=== PATIENT | female | born 1990 | race Caucasian/White ===

== ENCOUNTER 2017-07-27 11:17 | Outpatient (CLI) | payer MEDICARE, MEDICAID ==
[~2017-07-27] VITALS: Ht 162.6 cm; Wt 115.7 kg
[~2017-07-27 11:17] MED LIST: ACHD5005 PO; ALBU17AE23 IH; AMIT10TA6 PO; AMOX500C2 PO; ASEN5TAB7 SL; ATRV10T PO; BUDE6HFA IH; BUPR150T7 PO; BUTA1CAP37 PO; CITA10TA PO; CLCX200C PO; CLON0.1T PO; CLON0.5T3 PO; CLON2TAB3 PO; CPH250CIP PO; CPR500T PO; CYCL10TA9 PO; DIAZ10TA3 PO; DIAZ5TAB3 PO; ENXP30I.3 SC; ERGO2000 PO; ESCI20TA2 PO; ESCI20TA38 PO; ESTR1TAB24 PO; EXEN5PEN3 SQ; FLAV100T PO; FLT11013 IH; FLUO20CA42 PO; GABA600T2 PO; GLYB2.5T4 PO; HYDR-2856; HYDR-34 PO; HYDR-700 PO; HYDR1TAB PO; INDO25CA PO; IPR14IN INH; LAMO100T69 PO; LISI1TAB PO; LISI5TAB PO; LOVA20TA2 PO; MEDR10TA9 PO; MELO-195 PO; METO-354 PO; METO10TA3 PO; MNTL10T PO; MTF500T PO; MTH/1CAP PO; NAPR-243 PO; NITR100C3 PO; OMEP20CA12 PO; ONDA8TAB6 PO; OXYB10TA PO; OXYC-306 PO; OXYC-465 PO; OXYC20TA54 PO; PARO10TA21 PO; PENT100C5 PO; PHEN-483 PO; PHEN200T27 PO; PREG75CA PO; PROC5TAB PO; QTP25T PO; RNT150T PO; ROPI1TAB2 PO; RT-ALBUINH IH; RT-COMBINH IH; SOLI10TA4 PO; SPIR100T37 PO; SUMA100T3 PO; TOPI100T PO; TRZ100T PO; URELLE PO; WARF7.5T PO; WRF10T PO; XENICAL PO; ZLP5T PO; ZPR40C PO; ZPR80C PO; [UNRECOGNIZED DRUG - OTHER] TP
[2017-07-27] MEDS ORDERED: D5 LR IV SOLUTION 1,000 ML IV SCH (11:45)
[2017-07-27 12:51] LABS: BASOPHILS % (AUTO) 0 % (0-10); EOSINOPHILS # (AUTO) 0.1 10^3/uL (0.0-0.3); EOSINOPHILS % (AUTO) 1 % (0-10); HEMATOCRIT 37 % (35-52); HEMOGLOBIN 12.6 G/DL (11.5-16.0); LYMPHOCYTES # (AUTO) 1.7 X 10^3 (1.0-4.0); LYMPHOCYTES % (AUTO) 19 % (12-44); MEAN CORPUSCULAR HEMOGLOBIN 30 PG (25-34); MEAN CORPUSCULAR HGB CONC 34 G/DL (32-36); MEAN CORPUSCULAR VOLUME 86 FL (80-99); MONOCYTES # (AUTO) 0.5 X 10^3 (0.0-1.0); MONOCYTES % (AUTO) 5 % (0-12); NEUTROPHILS # (AUTO) 6.4 X 10^3 (1.8-7.8); NEUTROPHILS % (AUTO) 74 % (42-75); PLATELET COUNT 167 10^3/uL (130-400); RED BLOOD COUNT 4.25 10^6/uL (4.35-5.85); RED CELL DISTRIBUTION WIDTH 13.7 % (10.0-14.5); WHITE BLOOD COUNT 8.6 10^3/uL (4.3-11.0)
--- NOTE | 2017-07-28 08:55 | Physician Query-Final Dx ---
SANDY DREW 07/28/17 0855: Clinic Account Progress/Dx Physician Query: Please give diagnosis Date of Service Jul 27, 2017 at 11:17 DARRYL YE MD 07/28/17 1638: Clinic Account Progress/Dx DIAGNOSIS: Diagnosis False labor RAJENDRASANDY Jul 28, 2017 08:55 DARRYL YE MD Jul 28, 2017 16:38
== END 2017-07-27 13:46 | disposition home or self-care (01) ==
LOC: WSo 11:17 → LDRP 11:17 → WSo 13:46
PROVIDERS: ATTEND Obstetrics & Gynecology
DX: O47.02 False labor before 37 completed weeks of gestation, second trimester (principal); Z3A.23 23 weeks gestation of pregnancy
CPT/HCPCS: 36415; 82570; 84156; 85025; 96360; 99214

== ENCOUNTER 2018-05-15 15:32 | Outpatient (CLI) | payer MEDICARE, MEDICAID ==
[~2018-05-15] VITALS: Ht 162.6 cm; Wt 114.3 kg
[~2018-05-15 15:32] MED LIST changes: +AMLO5TAB4 PO; +BIRTH CONTROL PILL PO; +CLON0.5T13 PO; -CLON0.5T3 PO; +DIAZ5TAB PO; +LITH300C PO; +NITR-65 PO; +PHEN-640 PO; +SITA100T12 PO
[2018-05-16] MEDS ORDERED: NORE0.3520 PO (14:02)
[2018-05-16] MEDS ORDERED: IBUP-1773 PO (14:08)
== END 2018-05-15 16:30 | disposition home or self-care (01) ==
LOC: PREOP 15:32
PROVIDERS: ATTEND Orthopaedic Surgery
DX: Z01.818 Encounter for other preprocedural examination (principal)

== ENCOUNTER 2018-05-17 17:29 | Emergency (ER) | payer MEDICARE, MEDICAID ==
[~2018-05-17] VITALS: Ht 165.1 cm; Wt 115.7 kg
[~2018-05-17 17:29] MED LIST changes: +IBUP-1773 PO; +NORE0.3520 PO
--- OUTSIDE RECORDS SUMMARY | 2018-05-17 17:34 | XMS REPORT | Clinical Summary ---
Author Author [facility] Organization [facility] Address Unknown Phone Unavailable Care Team Providers Care Educational Coordinator Name Role Phone PP Unavailable Allergies Comments Active Allergy Reactions Severity Noted Date Thrush Fluticasone-Salmeterol Other (See Medium 11/17/2011 Comments) Med made pt's neuropathy worse. Topiramate Other (See Medium 11/12/2012 Comments) Tramadol Shortness Of High 09/12/2011 Breath Medications End Date Status Medication Sig Dispensed Refills Start Date Active oxyCODONE (ROXICODONE) 5 Take 10 mg by 0 MG immediate release mouth every 4 tablet (four) hours as needed for Severe Pain. Active phentermine 37.5 MG Take 37.5 mg 0 capsule by mouth every morning. Active oxyCODONE (OXYCONTIN) 10 Take 20 mg by 0 MG 12 hr mouth every tabletIndications: 12 (twelve) Chronic Pain hours. Indications: Chronic Pain Active lurasidone (LATUDA) 20 MG Take 1 tablet 30 tablet 1 tabletIndications: (20 mg total) 7 Depressive Phase Bipolar by mouth Mood Disorder daily with dinner. Indications: Depressive Phase of Manic-Depress ion Active traZODone (DESYREL) 50 MG Take 1 tablet 20 tablet 0 tabletIndications: (50 mg total) 7 Insomnia by mouth at bedtime. 1/2 - 1 tab bedtime as needed Indications: Trouble Sleeping Active hydrOXYzine (ATARAX) 50 Take 1 tablet 90 tablet 0 MG tabletIndications: CHRIS (50 mg total) 7 (generalized anxiety by mouth 3 disorder) (three) times daily. Active Problems Problem Noted Date Bipolar I disorder with depression 03/24/2016 Suicidal behavior 11/27/2012 Marital disruption involving divorce 11/27/2012 Anxiety 11/13/2012 Suicidal behavior 11/13/2012 Unspecified episodic mood disorder 06/30/2012 Suicidal ideation 04/28/2012 Chronic back pain 09/13/2011 Diabetes mellitus 09/13/2011 Resolved Problems Problem Noted Date Resolved Date CHRIS (generalized anxiety disorder) 12/19/2016 12/21/2016 PTSD (post-traumatic stress disorder) 12/19/2016 12/21/2016 Bipolar 1 disorder, depressed, severe 11/13/2012 12/21/2016 Suicidal intent 06/30/2012 07/04/2012 Suicidal ideation 10/06/2011 04/28/2012 Suicidal ideation 12/08/2010 12/10/2010 Major depression, recurrent 12/08/2010 05/04/2012 Immunizations Name Dates Previously Given Next Due Pneumococcal 08/22/2012 Polysaccharide (23-valent) Family History Medical History Relation Name Comments Mental illness Maternal Aunt Danielle Mental illness Mother Padmini Relation Name Status Comments Maternal Aunt Danielle Alive Mother Padmini Alive Social History Date Tobacco Use Types Packs/Day Years Used Never Smoker Smokeless Tobacco: Never Used Alcohol Use Drinks/Week oz/Week Comments No Sex Assigned at Date Recorded Not on file Industry Job Start Date Occupation Not on file Not on file Not on file Travel End Travel History Travel Start No recent travel history available. Last Filed Vital Signs Time Taken Vital Sign Reading 12/21/2016 9:09 AM CDT Blood Pressure 132/87 12/21/2016 9:09 AM CDT Pulse 106 12/21/2016 9:08 AM CDT Temperature 36.6 C (97.9 F) 12/21/2016 9:08 AM CDT Respiratory Rate 18 12/21/2016 9:08 AM CDT Oxygen Saturation 97% - Inhaled Oxygen - Concentration 12/18/2016 3:50 PM CDT Weight 117 kg (258 lb) 12/18/2016 3:50 PM CDT Height 162.6 cm (5' 4") 12/18/2016 3:50 PM CDT Body Mass Index 44.29 Plan of Treatment Health Maintenance Due Date Last Done Comments Annual Wellness Visit 1988 Diabetic Foot Exam 1998 Ophthalmology Exam 1998 Varicella Vaccines (1 of 2001 2 - 2-dose adolescent series) DTaP,Tdap,and Td Vaccines 10/29/2007 (1 - Tdap) CERVICAL CANCER SCREENING 2009 Diabetic A1C Due 09/21/2016 03/24/2016, 04/28/2012, 12/08/2010 Influenza Vaccine (#1) 2017 Results Not on filefrom Last 3 Months Insurance Type Payer Benefit Subscriber ID Effective Phone Address Plan / Dates Group Medicare MEDICARE MEDICARE xxxxxxxxxx 2012-P [phone] [address] [place] [address] [employer] K[employer]ARE 19 xxxxxxxxxxx 2008 [address] [address] [place] [address] ([place]) [place] [address] Advance Directives For more information, please contact: [address] [address] Date Inactivated Comments Code Status Date Activated Full Code 12/21/2016 8:28 AM 12/21/2016 8:28 AM Full Code 12/18/2016 4:52 PM 03/26/2016 5:07 PM Full Code 03/23/2016 11:18 PM 11/28/2012 3:00 PM Full Code 11/26/2012 9:02 PM 11/16/2012 1:25 PM Full Code 11/13/2012 2:08 AM
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
--- OUTSIDE RECORDS SUMMARY | 2018-05-17 17:37 | XMS REPORT | Continuity of Care Document ---
Author Author [facility] [place] Address Unknown Phone Unavailable Allergies Active Description Code Type Severity Reaction Onset Reported/Identified Relationship to Patient Clinical Status Yes Pyridium Drug Allergy N/A N/A 02/24/2011 Yes TAPE OA N/A N/A 02/24/2011 Yes traMADOL Drug Allergy N/A N/A 02/24/2011 Yes Pyridium Drug Allergy 02/24/2011 Yes TAPE OA 02/24/2011 Yes traMADOL Drug Allergy 02/24/2011 Yes Advair Diskus Drug Allergy N/ A N/A 11/01/2011 Yes Advair Diskus Drug Allergy 11/01/2011 Yes Lortab 7.5-500 mg tablet Drug Allergy N/A N/A 02/13/2012 Yes oxycodone-acetaminophen 10-325 mg tablet Drug Allergy N/A N/A 02/13/2012 Yes Lortab 7.5-500 mg tablet Drug Allergy 02/13/2012 Yes oxycodone-acetaminophen 10-325 mg tablet Drug Allergy 02/13/2012 Yes Topamax 200 mg tablet Drug Allergy N/A N/A 09/11/2012 Yes diazepam 10 mg tablet Drug Allergy N/A N/A 12/12/2012 Medications There is no data. Problems Date Dx Coded Attending Type Code Diagnosis Diagnosed By 02/24/2011 250.00 DIABETES MELLITUS TYPE 2 02/24/2011 278.00 OBESITY 02/24/2011 338.29 CHRONIC PAIN 02/24/2011 625.9 Female Pelvic Pain 02/24/2011 788.1 pain during urination (dysuria) 02/24/2011 V12.51 Personal History of DVT 02/24/2011 250.00 DIABETES MELLITUS TYPE 2 02/24/2011 278.00 OBESITY 02/24/2011 338.29 CHRONIC PAIN 02/24/2011 625.9 Female Pelvic Pain 02/24/2011 788.1 Pain During Urination (dysuria) 02/24/2011 V12.51 Personal History of DVT 02/24/2011 ARCHULETA DO, VANNA K 250.00 DIABETES MELLITUS TYPE 2 02/24/2011 ARCHULETA DO, VANNA K 278.00 OBESITY 02/24/2011 ARCHULETA DO, VANNA K 338.29 CHRONIC PAIN 02/24/2011 ARCHULETA DO, VANNA K 625.9 Female Pelvic Pain 02/24/2011 ARCHULETA DO, VANNA K 788.1 Pain During Urination (dysuria) 02/24/2011 ARCHULETA DO, VANNA K V12.51 Personal History of DVT 02/24/2011 ARCHULETA DO, VANNA K 250.00 DIABETES MELLITUS TYPE 2 02/24/2011 ARCHULETA DO, VANNA K 278.00 OBESITY 02/24/2011 ARCHULETA DO, VANNA K 338.29 CHRONIC PAIN 02/24/2011 ARCHULETA DO, VANNA K 625.9 Female Pelvic Pain 02/24/2011 ARCHULETA DO, VANNA K 788.1 Pain During Urination (dysuria) 02/24/2011 ARCHULETA DO, VANNA K V12.51 Personal History of DVT 02/24/2011 250.00 DIABETES MELLITUS TYPE 2 02/24/2011 278.00 OBESITY 02/24/2011 338.29 CHRONIC PAIN 02/24/2011 625.9 Female Pelvic Pain 02/24/2011 788.1 Pain During Urination (dysuria) 02/24/2011 V12.51 Personal History of DVT 02/24/2011 ARCHULETA DO, VANNA K 250.00 DIABETES MELLITUS TYPE 2 02/24/2011 ARCHULETA DO, VANNA K 278.00 OBESITY 02/24/2011 ARCHULETA DO, VANNA K 338.29 CHRONIC PAIN 02/24/2011 ARCHULETA DO, VANNA K 625.9 Female Pelvic Pain 02/24/2011 ARCHULETA DO, VANNA K 788.1 Pain During Urination (dysuria) 02/24/2011 ARCHULETA DO, VANNA K V12.51 Personal History of DVT 02/24/2011 ARCHULETA DO, VANNA K 250.00 DIABETES MELLITUS TYPE 2 02/24/2011 ARCHULETA DO, VANNA K 278.00 OBESITY 02/24/2011 ARCHULETA DO, VANNA K 338.29 CHRONIC PAIN 02/24/2011 ARCHULETA DO, VANNA K 625.9 Female Pelvic Pain 02/24/2011 ARCHULETA DO, VANNA K 788.1 Pain During Urination (dysuria) 02/24/2011 ARCHULETA DO, VANNA K V12.51 Personal History of DVT 02/24/2011 VANNA ARCHULETA DO K 250.00 DIABETES MELLITUS TYPE 2 02/24/2011 KATHE WHITE VANNA K 278.00 OBESITY 02/24/2011 KATHE WHITE VANNA K 338.29 CHRONIC PAIN 02/24/2011 VANNA ARCHULETA DO K 625.9 Female Pelvic Pain 02/24/2011 VANNA ARCHULETA DO K 788.1 Pain During Urination (dysuria) 02/24/2011 VANNA ARCHULETA DO V12.51 Personal History of DVT 02/24/2011 250.00 DIABETES MELLITUS TYPE 2 02/24/2011 278.00 OBESITY 02/24/2011 338.29 CHRONIC PAIN 02/24/2011 625.9 Female Pelvic Pain 02/24/2011 788.1 Pain During Urination (dysuria) 02/24/2011 V12.51 Personal History of DVT 02/24/2011 250.00 DIABETES MELLITUS TYPE 2 02/24/2011 278.00 OBESITY 02/24/2011 338.29 CHRONIC PAIN 02/24/2011 625.9 Female Pelvic Pain 02/24/2011 788.1 Pain During Urination (dysuria) 02/24/2011 V12.51 Personal History of DVT 02/24/2011 250.00 DIABETES MELLITUS TYPE 2 02/24/2011 278.00 OBESITY 02/24/2011 338.29 CHRONIC PAIN 02/24/2011 625.9 Female Pelvic Pain 02/24/2011 788.1 Pain During Urination (dysuria) 02/24/2011 V12.51 Personal History of DVT 02/24/2011 250.00 DIABETES MELLITUS TYPE 2 02/24/2011 278.00 OBESITY 02/24/2011 338.29 CHRONIC PAIN 02/24/2011 625.9 Female Pelvic Pain 02/24/2011 788.1 Pain During Urination (dysuria) 02/24/2011 V12.51 Personal History of DVT 02/24/2011 250.00 DIABETES MELLITUS TYPE 2 02/24/2011 278.00 OBESITY 02/24/2011 338.29 CHRONIC PAIN 02/24/2011 625.9 Female Pelvic Pain 02/24/2011 788.1 Pain During Urination (dysuria) 02/24/2011 V12.51 Personal History of DVT 02/24/2011 250.00 DIABETES MELLITUS TYPE 2 02/24/2011 278.00 OBESITY 02/24/2011 338.29 CHRONIC PAIN 02/24/2011 625.9 Female Pelvic Pain 02/24/2011 788.1 Pain During Urination (dysuria) 02/24/2011 V12.51 Personal History of DVT 02/24/2011 250.00 DIABETES MELLITUS TYPE 2 02/24/2011 278.00 OBESITY 02/24/2011 338.29 CHRONIC PAIN 02/24/2011 625.9 Female Pelvic Pain 02/24/2011 788.1 Pain During Urination (dysuria) 02/24/2011 V12.51 Personal History of DVT 02/24/2011 ЕКАТЕРИНА ZAVALA MD 250.00 DIABETES MELLITUS TYPE 2 02/24/2011 ЕКАТЕРИНА ZAVALA MD 278.00 OBESITY 02/24/2011 ЕКАТЕРИНА ZAVALA MD 338.29 CHRONIC PAIN 02/24/2011 ЕКАТЕРИНА ZAVALA MD 625.9 Female Pelvic Pain 02/24/2011 ЕКАТЕРИНА ZAVALA MD 788.1 Pain During Urination (dysuria) 02/24/2011 ЕКАТЕРИНА ZAVALA MD V12.51 Personal History of DVT 02/24/2011 ЕКАТЕРИНА ZAVALA MD 250.00 DIABETES MELLITUS TYPE 2 02/24/2011 ЕКАТЕРИНА ZAVALA MD 278.00 OBESITY 02/24/2011 ЕКАТЕРИНА ZAVALA MD 338.29 CHRONIC PAIN 02/24/2011 ЕКАТЕРИНА ZAVALA MD 625.9 Female Pelvic Pain 02/24/2011 ЕКАТЕРИНА ZAVALA MD 788.1 Pain During Urination (dysuria) 02/24/2011 ЕКАТЕРИНА ZAVALA MD V12.51 Personal History of DVT 02/24/2011 ARCHULETA DO, VANNA K 250.00 DIABETES MELLITUS TYPE 2 02/24/2011 ARCHULETA DO, VANNA K 278.00 OBESITY 02/24/2011 ARCHULETA DO, VANNA K 338.29 CHRONIC PAIN 02/24/2011 ARCHULETA DO, VANNA K 625.9 Female Pelvic Pain 02/24/2011 ARCHULETA DO, VANNA K 788.1 Pain During Urination (dysuria) 02/24/2011 ARCHULETA DO, VANNA K V12.51 Personal History of DVT 02/24/2011 ARCHULETA DO, VANNA K 250.00 DIABETES MELLITUS TYPE 2 02/24/2011 ARCHULETA DO, VANNA K 278.00 OBESITY 02/24/2011 ARCHULETA DO, VANNA K 338.29 CHRONIC PAIN 02/24/2011 VANNA ARCHULETA DO K 625.9 Female Pelvic Pain 02/24/2011 VANNA ARCHULETA DO K 788.1 pain during urination (dysuria) 02/24/2011 VANNA ARCHULETA DO V12.51 Personal History of DVT 02/27/2011 790.6 Abnormal Lft ( liver Function Test) 02/27/2011 790.6 Abnormal Lft ( liver Function Test) 02/27/2011 VANNA ARCHULETA DO K 790.6 Abnormal Lft (liver Function Test) 02/27/2011 VANNA ARCHULETA DO 790.6 Abnormal Lft (liver Function Test) 02/27/2011 790.6 Abnormal Lft ( liver Function Test) 02/27/2011 VANNA ARCHULETA DO 790.6 Abnormal Lft (liver Function Test) 02/27/2011 VANNA ARCHULETA DO K 790.6 Abnormal Lft (liver Function Test) 02/27/2011 VANNA ARCHULETA DO 790.6 Abnormal Lft (liver Function Test) 02/27/2011 790.6 Abnormal Lft ( liver Function Test) 02/27/2011 790.6 Abnormal Lft ( liver Function Test) 02/27/2011 790.6 Abnormal Lft ( liver Function Test) 02/27/2011 790.6 Abnormal Lft ( liver Function Test) 02/27/2011 790.6 Abnormal Lft ( liver Function Test) 02/27/2011 790.6 Abnormal Lft ( liver Function Test) 02/27/2011 790.6 Abnormal Lft ( liver Function Test) 02/27/2011 ЕКАТЕРИНА ZAVALA MD 790.6 Abnormal Lft (liver Function Test) 02/27/2011 ЕКАТЕРИНА ZAVALA MD 790.6 Abnormal Lft (liver Function Test) 02/27/2011 VANNA ARCHULETA DO 790.6 Abnormal Lft (liver Function Test) 02/27/2011 VANNA ARCHULETA DO K 790.6 Abnormal Lft (liver Function Test) 03/17/2011 268.9 UNSPECIFIED VITAMIN D DEFICIENCY 03/17/2011 300.00 ANXIETY STATE UNSPECIFIED 03/17/2011 569.3 Hemorrhage Of Rectum And Anus 03/17/2011 724.1 Pain In Thoracic Spine 03/17/2011 724.2 Lumbago 03/17/2011 268.9 UNSPECIFIED VITAMIN D DEFICIENCY 03/17/2011 300.00 ANXIETY STATE UNSPECIFIED 03/17/2011 569.3 Hemorrhage Of Rectum And Anus 03/17/2011 724.1 Pain In Thoracic Spine 03/17/2011 724.2 Lumbago 03/17/2011 ARCHULETA DO, VANNA K 268.9 UNSPECIFIED VITAMIN D DEFICIENCY 03/17/2011 ARCHLUETA DO, VANNA K 300.00 ANXIETY STATE UNSPECIFIED 03/17/2011 ARCHULETA DO, VANNA K 569.3 Hemorrhage Of Rectum And Anus 03/17/2011 ARCHULETA DO, VANNA K 724.1 Pain In Thoracic Spine 03/17/2011 ARCHULETA DO, VANNA K 724.2 Lumbago 03/17/2011 ARCHULETA DO, VANNA K 268.9 UNSPECIFIED VITAMIN D DEFICIENCY 03/17/2011 ARCHULETA DO, VANNA K 300.00 ANXIETY STATE UNSPECIFIED 03/17/2011 ARCHULETA DO, VANNA K 569.3 Hemorrhage Of Rectum And Anus 03/17/2011 ARCHULETA DO, VANNA K 724.1 Pain In Thoracic Spine 03/17/2011 ARCHULETA DO, VANNA K 724.2 Lumbago 03/17/2011 268.9 UNSPECIFIED VITAMIN D DEFICIENCY 03/17/2011 300.00 ANXIETY STATE UNSPECIFIED 03/17/2011 569.3 Hemorrhage Of Rectum And Anus 03/17/2011 724.1 Pain In Thoracic Spine 03/17/2011 724.2 Lumbago 03/17/2011 ARCHULETA DO, VANNA K 268.9 UNSPECIFIED VITAMIN D DEFICIENCY 03/17/2011 ARCHULETA DO, VANNA K 300.00 ANXIETY STATE UNSPECIFIED 03/17/2011 ARCHULETA DO, VANNA K 569.3 Hemorrhage Of Rectum And Anus 03/17/2011 ARCHULETA DO, VANNA K 724.1 Pain In Thoracic Spine 03/17/2011 ARCHULETA DO, VANNA K 724.2 Lumbago 03/17/2011 ARCHULETA DO, VANNA K 268.9 UNSPECIFIED VITAMIN D DEFICIENCY 03/17/2011 ARCHULETA DO, VANNA K 300.00 ANXIETY STATE UNSPECIFIED 03/17/2011 ARCHULETA DO, VANNA K 569.3 Hemorrhage Of Rectum And Anus 03/17/2011 ARCHULETA DO, VANNA K 724.1 Pain In Thoracic Spine 03/17/2011 ARCHULETA DO, VANNA K 724.2 Lumbago 03/17/2011 ARCHULETA DO, VANNA K 268.9 UNSPECIFIED VITAMIN D DEFICIENCY 03/17/2011 ARCHULETA DO, VANNA K 300.00 ANXIETY STATE UNSPECIFIED 03/17/2011 ARCHULETA DO, VANNA K 569.3 Hemorrhage Of Rectum And Anus 03/17/2011 ARCHULETA DO, VANNA K 724.1 Pain In Thoracic Spine 03/17/2011 ARCHULETA DOQUOCA K 724.2 Lumbago 03/17/2011 268.9 UNSPECIFIED VITAMIN D DEFICIENCY 03/17/2011 300.00 ANXIETY STATE UNSPECIFIED 03/17/2011 569.3 Hemorrhage Of Rectum And Anus 03/17/2011 724.1 Pain In Thoracic Spine 03/17/2011 724.2 Lumbago 03/17/2011 268.9 UNSPECIFIED VITAMIN D DEFICIENCY 03/17/2011 300.00 ANXIETY STATE UNSPECIFIED 03/17/2011 569.3 Hemorrhage Of Rectum And Anus 03/17/2011 724.1 Pain In Thoracic Spine 03/17/2011 724.2 Lumbago 03/17/2011 268.9 UNSPECIFIED VITAMIN D DEFICIENCY 03/17/2011 300.00 ANXIETY STATE UNSPECIFIED 03/17/2011 569.3 Hemorrhage Of Rectum And Anus 03/17/2011 724.1 Pain In Thoracic Spine 03/17/2011 724.2 Lumbago 03/17/2011 268.9 UNSPECIFIED VITAMIN D DEFICIENCY 03/17/2011 300.00 ANXIETY STATE UNSPECIFIED 03/17/2011 569.3 Hemorrhage Of Rectum And Anus 03/17/2011 724.1 Pain In Thoracic Spine 03/17/2011 724.2 Lumbago 03/17/2011 268.9 UNSPECIFIED VITAMIN D DEFICIENCY 03/17/2011 300.00 ANXIETY STATE UNSPECIFIED 03/17/2011 569.3 Hemorrhage Of Rectum And Anus 03/17/2011 724.1 Pain In Thoracic Spine 03/17/2011 724.2 Lumbago 03/17/2011 268.9 UNSPECIFIED VITAMIN D DEFICIENCY 03/17/2011 300.00 ANXIETY STATE UNSPECIFIED 03/17/2011 569.3 Hemorrhage Of Rectum And Anus 03/17/2011 724.1 Pain In Thoracic Spine 03/17/2011 724.2 Lumbago 03/17/2011 268.9 UNSPECIFIED VITAMIN D DEFICIENCY 03/17/2011 300.00 ANXIETY STATE UNSPECIFIED 03/17/2011 569.3 Hemorrhage Of Rectum And Anus 03/17/2011 724.1 Pain In Thoracic Spine 03/17/2011 724.2 Lumbago 03/17/2011 ЕКАТЕРИНА ZAVALA MD 268.9 UNSPECIFIED VITAMIN D DEFICIENCY 03/17/2011 ЕКАТЕРИНА ZAVALA MD 300.00 ANXIETY STATE UNSPECIFIED 03/17/2011 ЕКАТЕРИНА ZAVALA MD 569.3 Hemorrhage Of Rectum And Anus 03/17/2011 ЕКАТЕРИНА ZAVALA MD 724.1 Pain In Thoracic Spine 03/17/2011 ЕКАТЕРИНА ZAVALA MD 724.2 Lumbago 03/17/2011 ЕКАТЕРИНА ZAVALA MD 268.9 UNSPECIFIED VITAMIN D DEFICIENCY 03/17/2011 ЕКАТЕРИНА ZAVALA MD 300.00 ANXIETY STATE UNSPECIFIED 03/17/2011 ЕКАТЕРИНА ZAVALA MD 569.3 Hemorrhage Of Rectum And Anus 03/17/2011 ЕКАТЕРИНА ZAVALA MD 724.1 Pain In Thoracic Spine 03/17/2011 ЕКАТЕРИНА ZAVALA MD 724.2 Lumbago 03/17/2011 ARCHULETA DO, VANNA K 268.9 UNSPECIFIED VITAMIN D DEFICIENCY 03/17/2011 ARCHULETA DO, VANNA K 300.00 ANXIETY STATE UNSPECIFIED 03/17/2011 ARCHULETA DO, VANNA K 569.3 Hemorrhage Of Rectum And Anus 03/17/2011 ARCHULETA DO, VANNA K 724.1 Pain In Thoracic Spine 03/17/2011 ARCHULETA DO, VANNA K 724.2 Lumbago 03/17/2011 ARCHULETA DO, VANNA K 268.9 UNSPECIFIED VITAMIN D DEFICIENCY 03/17/2011 ARCHULETA DO, VANNA K 300.00 ANXIETY STATE UNSPECIFIED 03/17/2011 ARCHULETA DO, VANNA K 569.3 Hemorrhage Of Rectum And Anus 03/17/2011 ARCHULETA DO, VANNA K 724.1 Pain In Thoracic Spine 03/17/2011 ARCHULETA DO, VANNA K 724.2 Lumbago 04/19/2011 784.0 Headache 04/19/2011 786.59 Other Chest Pain 04/19/2011 784.0 Headache 04/19/2011 786.59 Other Chest Pain 04/19/2011 ARCHULETA DO, VANNA K 784.0 Headache 04/19/2011 ARCHULETA DO, VANNA K 786.59 Other Chest Pain 04/19/2011 ARCHULETA DO, VANNA K 784.0 Headache 04/19/2011 ARCHULETA DO, VANNA K 786.59 Other Chest Pain 04/19/2011 784.0 Headache 04/19/2011 786.59 Other Chest Pain 04/19/2011 ARCHULETA DO, VANNA K 784.0 Headache 04/19/2011 ARCHULETA DO, VANNA K 786.59 Other Chest Pain 04/19/2011 ARCHULETA DO, VANNA K 784.0 Headache 04/19/2011 ARCHULETA DO, VANNA K 786.59 Other Chest Pain 04/19/2011 ARCHULETA DO, VANNA K 784.0 Headache 04/19/2011 ARCHULETA DO, VANNA K 786.59 Other Chest Pain 04/19/2011 784.0 Headache 04/19/2011 786.59 Other Chest Pain 04/19/2011 784.0 Headache 04/19/2011 786.59 Other Chest Pain 04/19/2011 784.0 Headache 04/19/2011 786.59 Other Chest Pain 04/19/2011 784.0 Headache 04/19/2011 786.59 Other Chest Pain 04/19/2011 784.0 Headache 04/19/2011 786.59 Other Chest Pain 04/19/2011 784.0 Headache 04/19/2011 786.59 Other Chest Pain 04/19/2011 784.0 Headache 04/19/2011 786.59 Other Chest Pain 04/19/2011 ЕКАТЕРИНА ZAVALA MD 784.0 Headache 04/19/2011 ЕКАТЕРИНА ZAVALA MD 786.59 Other Chest Pain 04/19/2011 ЕКАТЕРИНА ZAVALA MD 784.0 Headache 04/19/2011 ЕКАТЕРИНА ZAVALA MD 786.59 Other Chest Pain 04/19/2011 ARCHULETA DO, VANNA K 784.0 Headache 04/19/2011 ARCHULETA DO, VANNA K 786.59 Other Chest Pain 04/19/2011 ARCHULETA DO, VANNA K 784.0 Headache 04/19/2011 ARCHULETA DO, VANNA K 786.59 Other Chest Pain 04/20/2011 296.90 MOOD DISORDER NOS 04/20/2011 296.90 MOOD DISORDER NOS 04/20/2011 ARCHULETA DO, VANNA K 296.90 MOOD DISORDER NOS 04/20/2011 ARCHULETA DO, VANNA K 296.90 MOOD DISORDER NOS 04/20/2011 296.90 MOOD DISORDER NOS 04/20/2011 ARCHULETA DO, VANNA K 296.90 MOOD DISORDER NOS 04/20/2011 ARCHULETA DO, VANNA K 296.90 MOOD DISORDER NOS 04/20/2011 ARCHULETA DO, VANNA K 296.90 MOOD DISORDER NOS 04/20/2011 296.90 MOOD DISORDER NOS 04/20/2011 296.90 MOOD DISORDER NOS 04/20/2011 296.90 MOOD DISORDER NOS 04/20/2011 296.90 MOOD DISORDER NOS 04/20/2011 296.90 MOOD DISORDER NOS 04/20/2011 296.90 MOOD DISORDER NOS 04/20/2011 296.90 MOOD DISORDER NOS 04/20/2011 ЕКАТЕРИНА ZAVALA MD 296.90 MOOD DISORDER NOS 04/20/2011 ЕКАТЕРИНА ZAVALA MD 296.90 MOOD DISORDER NOS 04/20/2011 ARCHULETA DO, VANNA K 296.90 MOOD DISORDER NOS 04/20/2011 ARCHULETA DO, VANNA K 296.90 MOOD DISORDER NOS 04/27/2011 307.47 SI DYSSOMNIA NOS 04/27/2011 311 Mo Depress Nos 04/27/2011 314.00 ADHD INATTENTIVE 04/27/2011 789.01 Abdominal Pain Right Upper Quadrant 04/27/2011 307.47 SI DYSSOMNIA NOS 04/27/2011 311 Mo Depress Nos 04/27/2011 314.00 ADHD INATTENTIVE 04/27/2011 789.01 Abdominal Pain Right Upper Quadrant 04/27/2011 ARCHULETA DO, VANNA K 307.47 SI DYSSOMNIA NOS 04/27/2011 ARCHULETA DO, VANNA K 311 Mo Depress Nos 04/27/2011 ARCHULETA DO, VANNA K 314.00 ADHD INATTENTIVE 04/27/2011 ARCHULETA DO, VANNA K 789.01 Abdominal Pain Right Upper Quadrant 04/27/2011 ARCHULETA DO, VANNA K 307.47 SI DYSSOMNIA NOS 04/27/2011 ARCHULETA DO, VANNA K 311 Mo Depress Nos 04/27/2011 ARCHULETA DO, VANNA K 314.00 ADHD INATTENTIVE 04/27/2011 ARCHULETA DO, VANNA K 789.01 Abdominal Pain Right Upper Quadrant 04/27/2011 307.47 SI DYSSOMNIA NOS 04/27/2011 311 Mo Depress Nos 04/27/2011 314.00 ADHD INATTENTIVE 04/27/2011 789.01 Abdominal Pain Right Upper Quadrant 04/27/2011 ARCHULETA DO, VANNA K 307.47 SI DYSSOMNIA NOS 04/27/2011 ARCHULETA DO, VANNA K 311 Mo Depress Nos 04/27/2011 ARCHULETA DO, VANNA K 314.00 ADHD INATTENTIVE 04/27/2011 KATHE WHITE, VANNA K 789.01 Abdominal Pain Right Upper Quadrant 04/27/2011 ARCHULETA DO, VANNA K 307.47 SI DYSSOMNIA NOS 04/27/2011 ARCHULETA DO, VANNA K 311 Mo Depress Nos 04/27/2011 ARCHULETA DO, VANNA K 314.00 ADHD INATTENTIVE 04/27/2011 ARCHULETA DO, VANNA K 789.01 Abdominal Pain Right Upper Quadrant 04/27/2011 ARCHULETA DO, VANNA K 307.47 SI DYSSOMNIA NOS 04/27/2011 ARCHULETA DO, VANNA K 311 Mo Depress Nos 04/27/2011 AKTHE WHITE, VANNA K 314.00 ADHD INATTENTIVE 04/27/2011 KATHE WHITE, VANNA K 789.01 Abdominal Pain Right Upper Quadrant 04/27/2011 307.47 SI DYSSOMNIA NOS 04/27/2011 311 Mo Depress Nos 04/27/2011 314.00 ADHD INATTENTIVE 04/27/2011 789.01 Abdominal Pain Right Upper Quadrant 04/27/2011 307.47 SI DYSSOMNIA NOS 04/27/2011 311 Mo Depress Nos 04/27/2011 314.00 ADHD INATTENTIVE 04/27/2011 789.01 Abdominal Pain Right Upper Quadrant 04/27/2011 307.47 SI DYSSOMNIA NOS 04/27/2011 311 Mo Depress Nos 04/27/2011 314.00 ADHD INATTENTIVE 04/27/2011 789.01 Abdominal Pain Right Upper Quadrant 04/27/2011 307.47 SI DYSSOMNIA NOS 04/27/2011 311 Mo Depress Nos 04/27/2011 314.00 ADHD INATTENTIVE 04/27/2011 789.01 Abdominal Pain Right Upper Quadrant 04/27/2011 307.47 SI DYSSOMNIA NOS 04/27/2011 311 Mo Depress Nos 04/27/2011 314.00 ADHD INATTENTIVE 04/27/2011 789.01 Abdominal Pain Right Upper Quadrant 04/27/2011 307.47 SI DYSSOMNIA NOS 04/27/2011 311 Mo Depress Nos 04/27/2011 314.00 ADHD INATTENTIVE 04/27/2011 789.01 Abdominal Pain Right Upper Quadrant 04/27/2011 307.47 SI DYSSOMNIA NOS 04/27/2011 311 Mo Depress Nos 04/27/2011 314.00 ADHD INATTENTIVE 04/27/2011 789.01 Abdominal Pain Right Upper Quadrant 04/27/2011 ЕКАТЕРИНА ZAVALA MD 307.47 SI DYSSOMNIA NOS 04/27/2011 ЕКАТЕРИНА ZAVALA MD 311 Mo Depress Nos 04/27/2011 ЕКАТЕРИНА ZAVALA MD 314.00 ADHD INATTENTIVE 04/27/2011 ЕКАТЕРИНА ZAVALA MD 789.01 abdominal pain in the right upper belly (RUQ) 04/27/2011 ЕКАТЕРИНА ZAVALA MD 307.47 SI DYSSOMNIA NOS 04/27/2011 ЕКАТЕРИНА ZAVALA MD 311 Mo Depress Nos 04/27/2011 ЕКАТЕРИНА ZAVALA MD 314.00 ADHD INATTENTIVE 04/27/2011 ЕКАТЕРИНА ZAVALA MD 789.01 abdominal pain in the right upper belly (RUQ) 04/27/2011 ARCHULETA DO, VANNA K 307.47 SI DYSSOMNIA NOS 04/27/2011 ARCHULETA DO, VANNA K 311 Mo Depress Nos 04/27/2011 ARCHULETA DO, VANNA K 314.00 ADHD INATTENTIVE 04/27/2011 ARCHULETA DO, VANNA K 789.01 abdominal pain in the right upper belly (RUQ) 04/27/2011 ARCHULETA DO, VANNA K 307.47 SI DYSSOMNIA NOS 04/27/2011 ARCHULETA DO, VANNA K 311 Mo Depress Nos 04/27/2011 ARCHULETA DO, VANNA K 314.00 ADHD INATTENTIVE 04/27/2011 ARCHULETA DO, VANNA K 789.01 Abdominal Pain Right Upper Quadrant 05/16/2011 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 05/16/2011 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 05/16/2011 ARCHULETA DO, VANNA K 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 05/16/2011 ARCHULETA DO, VANNA K 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 05/16/2011 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 05/16/2011 VANNA ARCHULETA DO 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 05/16/2011 VANNA ARCHULETA DO K 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 05/16/2011 VANNA ARCHULETA DO K 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 05/16/2011 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 05/16/2011 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 05/16/2011 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 05/16/2011 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 05/16/2011 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 05/16/2011 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 05/16/2011 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 05/16/2011 ЕКАТЕРИНА ZAVALA MD 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 05/16/2011 ЕКАТЕРИНА ZAVALA MD 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 05/16/2011 VANNA ARCHULETA DO 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 05/16/2011 VANNA ARCHULETA DO 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 05/26/2011 569.82 Ulceration Of Intestine 05/26/2011 569.82 Ulceration Of Intestine 05/26/2011 VANNA ARCHULETA DO K 569.82 Ulceration Of Intestine 05/26/2011 VANNA ARCHULETA DO K 569.82 Ulceration Of Intestine 05/26/2011 569.82 Ulceration Of Intestine 05/26/2011 VANNA ARCHULETA DO K 569.82 Ulceration Of Intestine 05/26/2011 VANNA ARCHULETA DO K 569.82 Ulceration Of Intestine 05/26/2011 VANNA ARCHULETA DO K 569.82 Ulceration Of Intestine 05/26/2011 569.82 Ulceration Of Intestine 05/26/2011 569.82 Ulceration Of Intestine 05/26/2011 569.82 Ulceration Of Intestine 05/26/2011 569.82 Ulceration Of Intestine 05/26/2011 569.82 Ulceration Of Intestine 05/26/2011 569.82 Ulceration Of Intestine 05/26/2011 569.82 Ulceration Of Intestine 05/26/2011 ЕКАТЕРИНА ZAVALA MD 569.82 Ulceration Of Intestine 05/26/2011 ЕКАТЕРИНА ZAVALA MD 569.82 Ulceration Of Intestine 05/26/2011 VANNA ARCHULETA DO 569.82 Ulceration Of Intestine 05/26/2011 VANNA ARCHULETA DO 569.82 Ulceration Of Intestine 06/14/2011 465.9 Acute Upper Respiratory Infections Of Unspecified Site 06/14/2011 719.46 Pain In Joint Involving Lower Leg 06/14/2011 465.9 Acute Upper Respiratory Infections Of Unspecified Site 06/14/2011 719.46 Pain In Joint Involving Lower Leg 06/14/2011 VANNA ARCHULETA DO 465.9 Acute Upper Respiratory Infections Of Unspecified Site 06/14/2011 VANNA ARCHULETA DO 719.46 Pain In Joint Involving Lower Leg 06/14/2011 VANNA ARCHULETA DO 465.9 Acute Upper Respiratory Infections Of Unspecified Site 06/14/2011 VANNA ARCHULETA DO 719.46 Pain In Joint Involving Lower Leg 06/14/2011 465.9 Acute Upper Respiratory Infections Of Unspecified Site 06/14/2011 719.46 Pain In Joint Involving Lower Leg 06/14/2011 VANNA ARCHULETA DO 465.9 Acute Upper Respiratory Infections Of Unspecified Site 06/14/2011 VANNA ARCHULETA DO 719.46 Pain In Joint Involving Lower Leg 06/14/2011 VANNA ARCHULETA DO 465.9 Acute Upper Respiratory Infections Of Unspecified Site 06/14/2011 VANNA ARCHULETA DO 719.46 Pain In Joint Involving Lower Leg 06/14/2011 VANNA ARCHULETA DO 465.9 Acute Upper Respiratory Infections Of Unspecified Site 06/14/2011 VANNA ARCHULETA DO 719.46 Pain In Joint Involving Lower Leg 06/14/2011 465.9 Acute Upper Respiratory Infections Of Unspecified Site 06/14/2011 719.46 Pain In Joint Involving Lower Leg 06/14/2011 465.9 Acute Upper Respiratory Infections Of Unspecified Site 06/14/2011 719.46 Pain In Joint Involving Lower Leg 06/14/2011 465.9 Acute Upper Respiratory Infections Of Unspecified Site 06/14/2011 719.46 Pain In Joint Involving Lower Leg 06/14/2011 465.9 Acute Upper Respiratory Infections Of Unspecified Site 06/14/2011 719.46 Pain In Joint Involving Lower Leg 06/14/2011 465.9 Acute Upper Respiratory Infections Of Unspecified Site 06/14/2011 719.46 Pain In Joint Involving Lower Leg 06/14/2011 465.9 Acute Upper Respiratory Infections Of Unspecified Site 06/14/2011 719.46 Pain In Joint Involving Lower Leg 06/14/2011 465.9 Acute Upper Respiratory Infections Of Unspecified Site 06/14/2011 719.46 Pain In Joint Involving Lower Leg 06/14/2011 ЕКАТЕРИНА ZAVALA MD 465.9 Acute Upper Respiratory Infections Of Unspecified Site 06/14/2011 ЕКАТЕРИНА ZAVALA MD 719.46 Pain In Joint Involving Lower Leg 06/14/2011 ЕКАТЕРИНА ZAVALA MD 465.9 Acute Upper Respiratory Infections Of Unspecified Site 06/14/2011 ЕКАТЕРИНА ZAVALA MD 719.46 Pain In Joint Involving Lower Leg 06/14/2011 ARCHULETA DO VANNA K 465.9 Acute Upper Respiratory Infections Of Unspecified Site 06/14/2011 ARCHULETA DO VANNA K 719.46 Pain In Joint Involving Lower Leg 06/14/2011 ARCHULETA DO VANNA K 465.9 Acute Upper Respiratory Infections Of Unspecified Site 06/14/2011 ARCHULETA DO VANNA K 719.46 Pain In Joint Involving Lower Leg 07/18/2011 296.80 BIPOLAR DISORDER UNSPECIFIED 07/18/2011 296.80 BIPOLAR DISORDER UNSPECIFIED 07/18/2011 ARCHULETA DO VANNA K 296.80 BIPOLAR DISORDER UNSPECIFIED 07/18/2011 ARCHULETA DO, VANNA K 296.80 BIPOLAR DISORDER UNSPECIFIED 07/18/2011 296.80 BIPOLAR DISORDER UNSPECIFIED 07/18/2011 ARCHULETA DO VANNA K 296.80 BIPOLAR DISORDER UNSPECIFIED 07/18/2011 ARCHULETA DO VANNA K 296.80 BIPOLAR DISORDER UNSPECIFIED 07/18/2011 ARCHULETA DO VANNA K 296.80 BIPOLAR DISORDER UNSPECIFIED 07/18/2011 296.80 BIPOLAR DISORDER UNSPECIFIED 07/18/2011 296.80 BIPOLAR DISORDER UNSPECIFIED 07/18/2011 296.80 BIPOLAR DISORDER UNSPECIFIED 07/18/2011 296.80 BIPOLAR DISORDER UNSPECIFIED 07/18/2011 296.80 BIPOLAR DISORDER UNSPECIFIED 07/18/2011 296.80 BIPOLAR DISORDER UNSPECIFIED 07/18/2011 296.80 BIPOLAR DISORDER UNSPECIFIED 07/18/2011 ЕКАТЕРИНА ZAVALA MD 296.80 BIPOLAR DISORDER UNSPECIFIED 07/18/2011 ЕКАТЕРИНА ZAVALA MD 296.80 BIPOLAR DISORDER UNSPECIFIED 07/18/2011 ARCHULETA DO VANNA K 296.80 BIPOLAR DISORDER UNSPECIFIED 07/18/2011 ARCHULETA DO VANNA K 296.80 BIPOLAR DISORDER UNSPECIFIED 07/19/2011 112.0 Candidiasis Of Mouth 07/19/2011 692.9 Dermatitis Contact Unspecified 07/19/2011 112.0 Candidiasis Of Mouth 07/19/2011 692.9 Dermatitis Contact Unspecified 07/19/2011 ARCHULETA DO, VANNA K 112.0 Candidiasis Of Mouth 07/19/2011 ARCHULETA DO, VANNA K 692.9 Dermatitis Contact Unspecified 07/19/2011 ARCHULETA DO, VANNA K 112.0 Candidiasis Of Mouth 07/19/2011 ARCHULETA DO, VANNA K 692.9 Dermatitis Contact Unspecified 07/19/2011 112.0 Candidiasis Of Mouth 07/19/2011 692.9 Dermatitis Contact Unspecified 07/19/2011 ARCHULETA DO, VANNA K 112.0 Candidiasis Of Mouth 07/19/2011 ARCHULETA DO, VANNA K 692.9 Dermatitis Contact Unspecified 07/19/2011 ARCHULETA DO, VANNA K 112.0 Candidiasis Of Mouth 07/19/2011 ARCHULETA DO, VANNA K 692.9 Dermatitis Contact Unspecified 07/19/2011 ARCHULETA DO, VANNA K 112.0 Candidiasis Of Mouth 07/19/2011 ARCHULETA DO, VANNA K 692.9 Dermatitis Contact Unspecified 07/19/2011 112.0 Candidiasis Of Mouth 07/19/2011 692.9 Dermatitis Contact Unspecified 07/19/2011 112.0 Candidiasis Of Mouth 07/19/2011 692.9 Dermatitis Contact Unspecified 07/19/2011 112.0 Candidiasis Of Mouth 07/19/2011 692.9 Dermatitis Contact Unspecified 07/19/2011 112.0 Candidiasis Of Mouth 07/19/2011 692.9 Dermatitis Contact Unspecified 07/19/2011 112.0 Candidiasis Of Mouth 07/19/2011 692.9 Dermatitis Contact Unspecified 07/19/2011 112.0 Candidiasis Of Mouth 07/19/2011 692.9 Dermatitis Contact Unspecified 07/19/2011 112.0 Candidiasis Of Mouth 07/19/2011 692.9 Dermatitis Contact Unspecified 07/19/2011 ЕКАТЕРИНА ZAVALA MD 112.0 Candidiasis Of Mouth 07/19/2011 ЕКАТЕРИНА ZAVALA MD 692.9 Dermatitis Contact Unspecified 07/19/2011 ЕКАТЕРИНА ZAVALA MD 112.0 Candidiasis Of Mouth 07/19/2011 ЕКАТЕРИНА ZAVALA MD 692.9 Dermatitis Contact Unspecified 07/19/2011 ARCHULETA DO, VANNA K 112.0 Candidiasis Of Mouth 07/19/2011 ARCHULETA DO, VANNA K 692.9 Dermatitis Contact Unspecified 07/19/2011 ARCHULETA DO, VANNA K 112.0 Candidiasis Of Mouth 07/19/2011 ARCHULETA DO, VANNA K 692.9 Dermatitis Contact Unspecified 07/25/2011 682.2 Cellulitis And Abscess Of Trunk 07/25/2011 784.99 Other Symptoms Involving Head And Neck 07/25/2011 682.2 Cellulitis And Abscess Of Trunk 07/25/2011 784.99 Other Symptoms Involving Head And Neck 07/25/2011 ARCHULETA DO, VANNA K 682.2 Cellulitis And Abscess Of Trunk 07/25/2011 ARCHULETA DO, VANNA K 784.99 Other Symptoms Involving Head And Neck 07/25/2011 ARCHULETA DO, VANNA K 682.2 Cellulitis And Abscess Of Trunk 07/25/2011 ARCHULETA DO, VANNA K 784.99 Other Symptoms Involving Head And Neck 07/25/2011 682.2 Cellulitis And Abscess Of Trunk 07/25/2011 784.99 Other Symptoms Involving Head And Neck 07/25/2011 ARCHULETA DO, VANNA K 682.2 Cellulitis And Abscess Of Trunk 07/25/2011 ARCHULETA DO, VANNA K 784.99 Other Symptoms Involving Head And Neck 07/25/2011 ARCHULETA DO, VANNA K 682.2 Cellulitis And Abscess Of Trunk 07/25/2011 ARCHULETA DO, VANNA K 784.99 Other Symptoms Involving Head And Neck 07/25/2011 ARCHULETA DO, VANNA K 682.2 Cellulitis And Abscess Of Trunk 07/25/2011 ARCHULETA DO, VANNA K 784.99 Other Symptoms Involving Head And Neck 07/25/2011 682.2 Cellulitis And Abscess Of Trunk 07/25/2011 784.99 Other Symptoms Involving Head And Neck 07/25/2011 682.2 Cellulitis And Abscess Of Trunk 07/25/2011 784.99 Other Symptoms Involving Head And Neck 07/25/2011 682.2 Cellulitis And Abscess Of Trunk 07/25/2011 784.99 Other Symptoms Involving Head And Neck 07/25/2011 682.2 Cellulitis And Abscess Of Trunk 07/25/2011 784.99 Other Symptoms Involving Head And Neck 07/25/2011 682.2 Cellulitis And Abscess Of Trunk 07/25/2011 784.99 Other Symptoms Involving Head And Neck 07/25/2011 682.2 Cellulitis And Abscess Of Trunk 07/25/2011 784.99 Other Symptoms Involving Head And Neck 07/25/2011 682.2 Cellulitis And Abscess Of Trunk 07/25/2011 784.99 Other Symptoms Involving Head And Neck 07/25/2011 ЕКАТЕРИНА ZAVALA MD 682.2 Cellulitis And Abscess Of Trunk 07/25/2011 ЕКАТЕРИНА ZAVALA MD 784.99 Other Symptoms Involving Head And Neck 07/25/2011 ЕКАТЕРИНА ZAVALA MD 682.2 Cellulitis And Abscess Of Trunk 07/25/2011 ЕКАТЕРИНА ZAVALA MD 784.99 Other Symptoms Involving Head And Neck 07/25/2011 ARCHULETA DO VANNA K 682.2 Cellulitis And Abscess Of Trunk 07/25/2011 ARCHULETA DO, VANNA K 784.99 Other Symptoms Involving Head And Neck 07/25/2011 ARCHULETA DO VANNA K 682.2 Cellulitis And Abscess Of Trunk 07/25/2011 ARCHULETA DO, VANNA K 784.99 Other Symptoms Involving Head And Neck 08/09/2011 592.0 Calculus Of Kidney 08/09/2011 592.0 Calculus Of Kidney 08/09/2011 ARCHULETA DO, VANNA K 592.0 Calculus Of Kidney 08/09/2011 ARCHULETA DO, VANNA K 592.0 Calculus Of Kidney 08/09/2011 592.0 Calculus Of Kidney 08/09/2011 ARCHULETA DO, VANNA K 592.0 Calculus Of Kidney 08/09/2011 ARCHULETA DO, VANNA K 592.0 Calculus Of Kidney 08/09/2011 ARCHULETA DO, VANNA K 592.0 Calculus Of Kidney 08/09/2011 592.0 Calculus Of Kidney 08/09/2011 592.0 Calculus Of Kidney 08/09/2011 592.0 Calculus Of Kidney 08/09/2011 592.0 Calculus Of Kidney 08/09/2011 592.0 Calculus Of Kidney 08/09/2011 592.0 Calculus Of Kidney 08/09/2011 592.0 Calculus Of Kidney 08/09/2011 ЕКАТЕРИНА ZAVALA MD 592.0 Calculus Of Kidney 08/09/2011 ЕКАТЕРИНА ZAVALA MD 592.0 Calculus Of Kidney 08/09/2011 ARCHULETA DOVANNA K 592.0 Calculus Of Kidney 08/09/2011 ARCHULETA DO, VANNA K 592.0 Calculus Of Kidney 08/15/2011 296.20 Mo Depressive Single Unspecified 08/15/2011 296.20 Mo Depressive Single Unspecified 08/15/2011 ARCHULETA DO, VANNA K 296.20 Mo Depressive Single Unspecified 08/15/2011 ARCHULETA DO, VANNA K 296.20 Mo Depressive Single Unspecified 08/15/2011 296.20 Mo Depressive Single Unspecified 08/15/2011 ARCHULETA DO, VANNA K 296.20 Mo Depressive Single Unspecified 08/15/2011 ARCHULETA DO, VANNA K 296.20 Mo Depressive Single Unspecified 08/15/2011 ARCHULETA DO, VANNA K 296.20 Mo Depressive Single Unspecified 08/15/2011 296.20 Mo Depressive Single Unspecified 08/15/2011 296.20 Mo Depressive Single Unspecified 08/15/2011 296.20 Mo Depressive Single Unspecified 08/15/2011 296.20 Mo Depressive Single Unspecified 08/15/2011 296.20 Mo Depressive Single Unspecified 08/15/2011 296.20 Mo Depressive Single Unspecified 08/15/2011 296.20 Mo Depressive Single Unspecified 08/15/2011 ЕКАТЕРИНА ZAVALA MD 296.20 Mo Depressive Single Unspecified 08/15/2011 ЕКАТЕРИНА ZAVALA MD 296.20 Mo Depressive Single Unspecified 08/15/2011 ARCHULETA DO, VANNA K 296.20 Mo Depressive Single Unspecified 08/15/2011 ARCHULETA DO, VANNA K 296.20 Mo Depressive Single Unspecified 09/07/2011 729.5 Pain In Limb 09/07/2011 729.5 Pain In Limb 09/07/2011 ARCHULETA DO VANNA K 729.5 Pain In Limb 09/07/2011 ARCHULETA DO VANNA K 729.5 Pain In Limb 09/07/2011 729.5 Pain In Limb 09/07/2011 ARCHULETA DO VANNA K 729.5 Pain In Limb 09/07/2011 ARCHULETA DO VANNA K 729.5 Pain In Limb 09/07/2011 ARCHULETA DO VANNA K 729.5 Pain In Limb 09/07/2011 729.5 Pain In Limb 09/07/2011 729.5 Pain In Limb 09/07/2011 729.5 Pain In Limb 09/07/2011 729.5 Pain In Limb 09/07/2011 729.5 Pain In Limb 09/07/2011 729.5 Pain In Limb 09/07/2011 729.5 Pain In Limb 09/07/2011 ЕКАТЕРИНА ZAVALA MD 729.5 Pain In Limb 09/07/2011 ЕКАТЕРИНА ZAVALA MD 729.5 Pain In Limb 09/07/2011 ARCHULETA DO, VANNA K 729.5 Pain In Limb 09/07/2011 ARCHULETA DO, VANNA K 729.5 Pain In Limb 09/22/2011 682.6 Cellulitis And Abscess Of Leg Except Foot 09/22/2011 682.6 Cellulitis And Abscess Of Leg Except Foot 09/22/2011 ARCHULETA DO, VANNA K 682.6 Cellulitis And Abscess Of Leg Except Foot 09/22/2011 ARCHULETA DO, VANNA K 682.6 Cellulitis And Abscess Of Leg Except Foot 09/22/2011 682.6 Cellulitis And Abscess Of Leg Except Foot 09/22/2011 ARCHULETA DO, VANNA K 682.6 Cellulitis And Abscess Of Leg Except Foot 09/22/2011 ARCHULETA DO, VANNA K 682.6 Cellulitis And Abscess Of Leg Except Foot 09/22/2011 ARCHULETA DO, VANNA K 682.6 Cellulitis And Abscess Of Leg Except Foot 09/22/2011 682.6 Cellulitis And Abscess Of Leg Except Foot 09/22/2011 682.6 Cellulitis And Abscess Of Leg Except Foot 09/22/2011 682.6 Cellulitis And Abscess Of Leg Except Foot 09/22/2011 682.6 Cellulitis And Abscess Of Leg Except Foot 09/22/2011 682.6 Cellulitis And Abscess Of Leg Except Foot 09/22/2011 682.6 Cellulitis And Abscess Of Leg Except Foot 09/22/2011 682.6 Cellulitis And Abscess Of Leg Except Foot 09/22/2011 ЕКАТЕРИНА ZAVALA MD 682.6 Cellulitis And Abscess Of Leg Except Foot 09/22/2011 ЕКАТЕРИНА ZAVALA MD 682.6 Cellulitis And Abscess Of Leg Except Foot 09/22/2011 ARCHULETA DO, VANNA K 682.6 Cellulitis And Abscess Of Leg Except Foot 09/22/2011 ARCHULETA DO, VANNA K 682.6 Cellulitis And Abscess Of Leg Except Foot 10/05/2011 296.50 MO BIPOLAR I DEPRESSED UNSPECIFIED 10/05/2011 296.50 MO BIPOLAR I DEPRESSED UNSPECIFIED 10/05/2011 KATHE DOQUOCA K 296.50 MO BIPOLAR I DEPRESSED UNSPECIFIED 10/05/2011 QUOC ARCHULETA DOA K 296.50 MO BIPOLAR I DEPRESSED UNSPECIFIED 10/05/2011 296.50 MO BIPOLAR I DEPRESSED UNSPECIFIED 10/05/2011 ARCHULETA DOQUOCA K 296.50 MO BIPOLAR I DEPRESSED UNSPECIFIED 10/05/2011 ARCHULETA DOQUOCA K 296.50 MO BIPOLAR I DEPRESSED UNSPECIFIED 10/05/2011 VANNA ARCHULETA DO K 296.50 MO BIPOLAR I DEPRESSED UNSPECIFIED 10/05/2011 296.50 MO BIPOLAR I DEPRESSED UNSPECIFIED 10/05/2011 296.50 MO BIPOLAR I DEPRESSED UNSPECIFIED 10/05/2011 296.50 MO BIPOLAR I DEPRESSED UNSPECIFIED 10/05/2011 296.50 MO BIPOLAR I DEPRESSED UNSPECIFIED 10/05/2011 296.50 MO BIPOLAR I DEPRESSED UNSPECIFIED 10/05/2011 296.50 MO BIPOLAR I DEPRESSED UNSPECIFIED 10/05/2011 296.50 MO BIPOLAR I DEPRESSED UNSPECIFIED 10/05/2011 ЕКАТЕРИНА ZAVALA MD 296.50 MO BIPOLAR I DEPRESSED UNSPECIFIED 10/05/2011 ЕКАТЕРИНА ZAVALA MD 296.50 MO BIPOLAR I DEPRESSED UNSPECIFIED 10/05/2011 VANNA ARCHULETA DO K 296.50 MO BIPOLAR I DEPRESSED UNSPECIFIED 10/05/2011 VANNA ARCHULETA DO K 296.50 MO BIPOLAR I DEPRESSED UNSPECIFIED 10/13/2011 296.30 MO DEPRESSIVE RECURRENT UNSPECIFIED 10/13/2011 715.96 OSTEOARTHROSIS UNSPECIFIED WHETHER GENERALIZED OR LOCALIZED INVOLVING LOWER LEG 10/13/2011 296.30 MO DEPRESSIVE RECURRENT UNSPECIFIED 10/13/2011 715.96 OSTEOARTHROSIS UNSPECIFIED WHETHER GENERALIZED OR LOCALIZED INVOLVING LOWER LEG 10/13/2011 VANNA ARCHULETA DO K 296.30 MO DEPRESSIVE RECURRENT UNSPECIFIED 10/13/2011 QUOC ARCHULETA DOA Margarita 715.96 OSTEOARTHROSIS UNSPECIFIED WHETHER GENERALIZED OR LOCALIZED INVOLVING LOWER LEG 10/13/2011 QUOC ARCHULETA DOA Margarita 296.30 MO DEPRESSIVE RECURRENT UNSPECIFIED 10/13/2011 VANNA ARCHULETA DO 715.96 OSTEOARTHROSIS UNSPECIFIED WHETHER GENERALIZED OR LOCALIZED INVOLVING LOWER LEG 10/13/2011 296.30 MO DEPRESSIVE RECURRENT UNSPECIFIED 10/13/2011 715.96 OSTEOARTHROSIS UNSPECIFIED WHETHER GENERALIZED OR LOCALIZED INVOLVING LOWER LEG 10/13/2011 ARCHULETA QUOC WHITEA K 296.30 MO DEPRESSIVE RECURRENT UNSPECIFIED 10/13/2011 ARCHULETA QUOC WHITEA K 715.96 OSTEOARTHROSIS UNSPECIFIED WHETHER GENERALIZED OR LOCALIZED INVOLVING LOWER LEG 10/13/2011 QUOC ARCHULETA DOA K 296.30 MO DEPRESSIVE RECURRENT UNSPECIFIED 10/13/2011 ARCHULETA QUOC WHITEA K 715.96 OSTEOARTHROSIS UNSPECIFIED WHETHER GENERALIZED OR LOCALIZED INVOLVING LOWER LEG 10/13/2011 ARCHULETA QUOC WHITEA K 296.30 MO DEPRESSIVE RECURRENT UNSPECIFIED 10/13/2011 QUOC ARCHULETA DOA K 715.96 OSTEOARTHROSIS UNSPECIFIED WHETHER GENERALIZED OR LOCALIZED INVOLVING LOWER LEG 10/13/2011 296.30 MO DEPRESSIVE RECURRENT UNSPECIFIED 10/13/2011 715.96 OSTEOARTHROSIS UNSPECIFIED WHETHER GENERALIZED OR LOCALIZED INVOLVING LOWER LEG 10/13/2011 296.30 MO DEPRESSIVE RECURRENT UNSPECIFIED 10/13/2011 715.96 OSTEOARTHROSIS UNSPECIFIED WHETHER GENERALIZED OR LOCALIZED INVOLVING LOWER LEG 10/13/2011 296.30 MO DEPRESSIVE RECURRENT UNSPECIFIED 10/13/2011 715.96 OSTEOARTHROSIS UNSPECIFIED WHETHER GENERALIZED OR LOCALIZED INVOLVING LOWER LEG 10/13/2011 296.30 MO DEPRESSIVE RECURRENT UNSPECIFIED 10/13/2011 715.96 OSTEOARTHROSIS UNSPECIFIED WHETHER GENERALIZED OR LOCALIZED INVOLVING LOWER LEG 10/13/2011 296.30 MO DEPRESSIVE RECURRENT UNSPECIFIED 10/13/2011 715.96 OSTEOARTHROSIS UNSPECIFIED WHETHER GENERALIZED OR LOCALIZED INVOLVING LOWER LEG 10/13/2011 296.30 MO DEPRESSIVE RECURRENT UNSPECIFIED 10/13/2011 715.96 OSTEOARTHROSIS UNSPECIFIED WHETHER GENERALIZED OR LOCALIZED INVOLVING LOWER LEG 10/13/2011 296.30 MO DEPRESSIVE RECURRENT UNSPECIFIED 10/13/2011 715.96 OSTEOARTHROSIS UNSPECIFIED WHETHER GENERALIZED OR LOCALIZED INVOLVING LOWER LEG 10/13/2011 ЕКАТЕРИНА ZAVALA MD 296.30 MO DEPRESSIVE RECURRENT UNSPECIFIED 10/13/2011 ЕКАТЕРИНА ZAVALA MD 715.96 OSTEOARTHROSIS UNSPECIFIED WHETHER GENERALIZED OR LOCALIZED INVOLVING LOWER LEG 10/13/2011 ЕКАТЕРИНА ZAVALA MD 296.30 MO DEPRESSIVE RECURRENT UNSPECIFIED 10/13/2011 LUCAS BAUER, ЕКАТЕРИНА Matute 715.96 OSTEOARTHROSIS UNSPECIFIED WHETHER GENERALIZED OR LOCALIZED INVOLVING LOWER LEG 10/13/2011 VANNA ARCHULETA DO 296.30 MO DEPRESSIVE RECURRENT UNSPECIFIED 10/13/2011 VANNA ARCHULETA DO 715.96 OSTEOARTHROSIS UNSPECIFIED WHETHER GENERALIZED OR LOCALIZED INVOLVING LOWER LEG 10/13/2011 VANNA ARCHULETA DO 296.30 MO DEPRESSIVE RECURRENT UNSPECIFIED 10/13/2011 QUOC ARCHULETA DOA Margarita 715.96 OSTEOARTHROSIS UNSPECIFIED WHETHER GENERALIZED OR LOCALIZED INVOLVING LOWER LEG 10/21/2011 599.0 Urinary Tract Infection 10/21/2011 719.45 Pain In Joint Involving Pelvic Region And Thigh 10/21/2011 599.0 Urinary Tract Infection 10/21/2011 719.45 Pain In Joint Involving Pelvic Region And Thigh 10/21/2011 VANNA ARCHULETA DO K 599.0 Urinary Tract Infection 10/21/2011 QUOC ARCHULETA DOA Margarita 719.45 Pain In Joint Involving Pelvic Region And Thigh 10/21/2011 QUOC ARCHULETA DOA K 599.0 Urinary Tract Infection 10/21/2011 QUOC ARCHULETA DOA K 719.45 Pain In Joint Involving Pelvic Region And Thigh 10/21/2011 599.0 Urinary Tract Infection 10/21/2011 719.45 Pain In Joint Involving Pelvic Region And Thigh 10/21/2011 QUOC ARCHULETA DOA K 599.0 Urinary Tract Infection 10/21/2011 QUOC ARCHULETA DOA K 719.45 Pain In Joint Involving Pelvic Region And Thigh 10/21/2011 QUOC ARCHULETA DOA K 599.0 Urinary Tract Infection 10/21/2011 QUOC ARCHULETA DOA K 719.45 Pain In Joint Involving Pelvic Region And Thigh 10/21/2011 QUOC ARCHULETA DOA K 599.0 Urinary Tract Infection 10/21/2011 QUOC ARCHULETA DOA K 719.45 Pain In Joint Involving Pelvic Region And Thigh 10/21/2011 599.0 Urinary Tract Infection 10/21/2011 719.45 Pain In Joint Involving Pelvic Region And Thigh 10/21/2011 599.0 Urinary Tract Infection 10/21/2011 719.45 Pain In Joint Involving Pelvic Region And Thigh 10/21/2011 599.0 Urinary Tract Infection 10/21/2011 719.45 Pain In Joint Involving Pelvic Region And Thigh 10/21/2011 599.0 Urinary Tract Infection 10/21/2011 719.45 Pain In Joint Involving Pelvic Region And Thigh 10/21/2011 599.0 Urinary Tract Infection 10/21/2011 719.45 Pain In Joint Involving Pelvic Region And Thigh 10/21/2011 599.0 Urinary Tract Infection 10/21/2011 719.45 Pain In Joint Involving Pelvic Region And Thigh 10/21/2011 599.0 Urinary Tract Infection 10/21/2011 719.45 Pain In Joint Involving Pelvic Region And Thigh 10/21/2011 ЕКАТЕРИНА ZAVALA MD 599.0 Urinary Tract Infection 10/21/2011 ЕКАТЕРИНА ZAVALA MD 719.45 Pain In Joint Involving Pelvic Region And Thigh 10/21/2011 ЕКАТЕРИНА ZAVALA MD 599.0 Urinary Tract Infection 10/21/2011 ЕКАТЕРИНА ZAVALA MD 719.45 Pain In Joint Involving Pelvic Region And Thigh 10/21/2011 VANNA ARCHULETA DO K 599.0 Urinary Tract Infection 10/21/2011 QUOC ARCHULETA DOA K 719.45 Pain In Joint Involving Pelvic Region And Thigh 10/21/2011 KATHE WHITE VANNA K 599.0 Urinary Tract Infection 10/21/2011 KATHE WHITE VANNA K 719.45 Pain In Joint Involving Pelvic Region And Thigh 11/01/2011 493.90 ASTHMA UNSPECIFIED 11/01/2011 493.90 ASTHMA UNSPECIFIED 11/01/2011 QUOC ARCHULETA DOA K 493.90 ASTHMA UNSPECIFIED 11/01/2011 QOUC ARCHULETA DOA K 493.90 ASTHMA UNSPECIFIED 11/01/2011 493.90 ASTHMA UNSPECIFIED 11/01/2011 ARCHULETA DO VANNA K 493.90 ASTHMA UNSPECIFIED 11/01/2011 ARCHULETA DO VANNA K 493.90 ASTHMA UNSPECIFIED 11/01/2011 ARCHULETA DO VANNA K 493.90 ASTHMA 11/01/2011 493.90 ASTHMA 11/01/2011 493.90 ASTHMA 11/01/2011 493.90 ASTHMA 11/01/2011 493.90 ASTHMA 11/01/2011 493.90 ASTHMA 11/01/2011 493.90 ASTHMA 11/01/2011 493.90 ASTHMA 11/01/2011 ЕКАТЕРИНА ZAVALA MD 493.90 ASTHMA 11/01/2011 ЕКАТЕРИНА ZAVALA MD 493.90 ASTHMA 11/01/2011 ARCHULETA DO VANNA K 493.90 ASTHMA 11/01/2011 ARCHULETA DO VANNA K 493.90 ASTHMA UNSPECIFIED 11/16/2011 595.1 CHRONIC INTERSTITIAL CYSTITIS 11/16/2011 789.07 Abdominal Pain Generalized 11/16/2011 595.1 CHRONIC INTERSTITIAL CYSTITIS 11/16/2011 789.07 Abdominal Pain Generalized 11/16/2011 ARCHULETA DO VANNA K 595.1 CHRONIC INTERSTITIAL CYSTITIS 11/16/2011 ARCHULETA DO VANNA K 789.07 Abdominal Pain Generalized 11/16/2011 ARCHULETA DO, VANNA K 595.1 CHRONIC INTERSTITIAL CYSTITIS 11/16/2011 ARCHULETA DO VANNA K 789.07 Abdominal Pain Generalized 11/16/2011 595.1 CHRONIC INTERSTITIAL CYSTITIS 11/16/2011 789.07 Abdominal Pain Generalized 11/16/2011 ARCHULETA DO VANNA K 595.1 CHRONIC INTERSTITIAL CYSTITIS 11/16/2011 ARCHULETA DO VANNA K 789.07 Abdominal Pain Generalized 11/16/2011 ARCHULETA DO VANNA K 595.1 CHRONIC INTERSTITIAL CYSTITIS 11/16/2011 ARCHULETA DO VANNA K 789.07 Abdominal Pain Generalized 11/16/2011 ARCHULETA DO VANNA K 595.1 CHRONIC INTERSTITIAL CYSTITIS 11/16/2011 ARCHULETA DO VANNA K 789.07 Abdominal Pain Generalized 11/16/2011 595.1 CHRONIC INTERSTITIAL CYSTITIS 11/16/2011 789.07 Abdominal Pain Generalized 11/16/2011 595.1 CHRONIC INTERSTITIAL CYSTITIS 11/16/2011 789.07 Abdominal Pain Generalized 11/16/2011 595.1 CHRONIC INTERSTITIAL CYSTITIS 11/16/2011 789.07 Abdominal Pain Generalized 11/16/2011 595.1 CHRONIC INTERSTITIAL CYSTITIS 11/16/2011 789.07 Abdominal Pain Generalized 11/16/2011 595.1 CHRONIC INTERSTITIAL CYSTITIS 11/16/2011 789.07 Abdominal Pain Generalized 11/16/2011 595.1 CHRONIC INTERSTITIAL CYSTITIS 11/16/2011 789.07 Abdominal Pain Generalized 11/16/2011 595.1 CHRONIC INTERSTITIAL CYSTITIS 11/16/2011 789.07 Abdominal Pain Generalized 11/16/2011 ЕКАТЕРИНА ZAVALA MD 595.1 CHRONIC INTERSTITIAL CYSTITIS 11/16/2011 ЕКАТЕРИНА ZAVALA MD 789.07 Abdominal Pain Generalized 11/16/2011 ЕКАТЕРИНА ZAVALA MD 595.1 CHRONIC INTERSTITIAL CYSTITIS 11/16/2011 ЕКАТЕРИНА ZAVALA MD 789.07 Abdominal Pain Generalized 11/16/2011 ARCHULETA DO, VANNA K 595.1 CHRONIC INTERSTITIAL CYSTITIS 11/16/2011 ARCHULETA DO, VANNA K 789.07 Abdominal Pain Generalized 11/16/2011 ARCHULETA DO, VANNA K 595.1 CHRONIC INTERSTITIAL CYSTITIS 11/16/2011 ARCHULETA DO, VANNA K 789.07 Abdominal Pain Generalized 11/25/2011 298.9 P PSYCHOSIS NOS 11/25/2011 301.83 PD BORDERLINE 11/25/2011 298.9 P PSYCHOSIS NOS 11/25/2011 301.83 PD BORDERLINE 11/25/2011 ARCHULETA DO, VANNA K 298.9 P PSYCHOSIS NOS 11/25/2011 ARCHULETA DO, VANNA K 301.83 PD BORDERLINE 11/25/2011 ARCHULETA DO, VANNA K 298.9 P PSYCHOSIS NOS 11/25/2011 ARCHULETA DO, VANNA K 301.83 PD BORDERLINE 11/25/2011 298.9 P PSYCHOSIS NOS 11/25/2011 301.83 PD BORDERLINE 11/25/2011 ARCHULETA DO, VANNA K 298.9 P PSYCHOSIS NOS 11/25/2011 ARCHULETA DO, VANNA K 301.83 PD BORDERLINE 11/25/2011 ARCHULETA DO, VANNA K 298.9 P PSYCHOSIS NOS 11/25/2011 ARCHULETA DO, VANNA K 301.83 PD BORDERLINE 11/25/2011 ARCHULETA DO, VANNA K 298.9 P PSYCHOSIS NOS 11/25/2011 ARCHULETA DO, VANNA K 301.83 PD BORDERLINE 11/25/2011 298.9 P PSYCHOSIS NOS 11/25/2011 301.83 PD BORDERLINE 11/25/2011 298.9 P PSYCHOSIS NOS 11/25/2011 301.83 PD BORDERLINE 11/25/2011 298.9 P PSYCHOSIS NOS 11/25/2011 301.83 PD BORDERLINE 11/25/2011 298.9 P PSYCHOSIS NOS 11/25/2011 301.83 PD BORDERLINE 11/25/2011 298.9 P PSYCHOSIS NOS 11/25/2011 301.83 PD BORDERLINE 11/25/2011 298.9 P PSYCHOSIS NOS 11/25/2011 301.83 PD BORDERLINE 11/25/2011 298.9 P PSYCHOSIS NOS 11/25/2011 301.83 PD BORDERLINE 11/25/2011 ЕКАТЕРИНА ZAVALA MD 298.9 P PSYCHOSIS NOS 11/25/2011 LUCAS BAUER, ЕКАТЕРИНА [place] 301.83 PD BORDERLINE 11/25/2011 LUCAS BAUER, ЕКАТЕРИНА [place] 298.9 P PSYCHOSIS NOS 11/25/2011 LUCAS BAUER, ЕКАТЕРИНА [place] 301.83 PD BORDERLINE 11/25/2011 ARCHULETA DO, VANNA K 298.9 P PSYCHOSIS NOS 11/25/2011 ARCHULETA DO, VANNA K 301.83 PD BORDERLINE 11/25/2011 ARCHULETA DO, VANNA K 298.9 P PSYCHOSIS NOS 11/25/2011 ARCHULETA DO, VANNA K 301.83 PD BORDERLINE 12/12/2011 783.21 Loss Of Weight 12/12/2011 787.02 Nausea Alone 12/12/2011 789.61 Abdominal Tenderness Right Upper Quadrant 12/12/2011 783.21 Loss Of Weight 12/12/2011 787.02 Nausea Alone 12/12/2011 789.61 Abdominal Tenderness Right Upper Quadrant 12/12/2011 ARCHULETA DO, VANNA K 783.21 Loss Of Weight 12/12/2011 ARCHULETA DO, VANNA K 787.02 Nausea Alone 12/12/2011 ARCHULETA DO, VANNA K 789.61 Abdominal Tenderness Right Upper Quadrant 12/12/2011 ARCHULETA DO, VANNA K 783.21 Loss Of Weight 12/12/2011 ARCHULETA DO, VANNA K 787.02 Nausea Alone 12/12/2011 ARCHULETA DO, VANNA K 789.61 Abdominal Tenderness Right Upper Quadrant 12/12/2011 783.21 Loss Of Weight 12/12/2011 787.02 Nausea Alone 12/12/2011 789.61 Abdominal Tenderness Right Upper Quadrant 12/12/2011 ARCHULETA DO, VANNA K 783.21 Loss Of Weight 12/12/2011 ARCHULETA DO, VANNA K 787.02 Nausea Alone 12/12/2011 ARCHULETA DO, VANNA K 789.61 Abdominal Tenderness Right Upper Quadrant 12/12/2011 ARCHULETA DO, VANNA K 783.21 Loss Of Weight 12/12/2011 ARCHULETA DO, VANNA K 787.02 Nausea Alone 12/12/2011 ARCHULETA DO, VANNA K 789.61 Abdominal Tenderness Right Upper Quadrant 12/12/2011 ARCHULETA DO, VANNA K 783.21 Loss Of Weight 12/12/2011 ARCHULETA DO, VANNA K 787.02 Nausea Alone 12/12/2011 ARCHULETA DO, VANNA K 789.61 Abdominal Tenderness Right Upper Quadrant 12/12/2011 783.21 Loss Of Weight 12/12/2011 787.02 Nausea Alone 12/12/2011 789.61 Abdominal Tenderness Right Upper Quadrant 12/12/2011 783.21 Loss Of Weight 12/12/2011 787.02 Nausea Alone 12/12/2011 789.61 Abdominal Tenderness Right Upper Quadrant 12/12/2011 783.21 Loss Of Weight 12/12/2011 787.02 Nausea Alone 12/12/2011 789.61 Abdominal Tenderness Right Upper Quadrant 12/12/2011 783.21 Loss Of Weight 12/12/2011 787.02 Nausea Alone 12/12/2011 789.61 Abdominal Tenderness Right Upper Quadrant 12/12/2011 783.21 Loss Of Weight 12/12/2011 787.02 Nausea Alone 12/12/2011 789.61 Abdominal Tenderness Right Upper Quadrant 12/12/2011 783.21 Loss Of Weight 12/12/2011 787.02 Nausea Alone 12/12/2011 789.61 Abdominal Tenderness Right Upper Quadrant 12/12/2011 783.21 Loss Of Weight 12/12/2011 787.02 Nausea Alone 12/12/2011 789.61 Abdominal Tenderness Right Upper Quadrant 12/12/2011 ЕКАТЕРИНА ZAVALA MD 783.21 Loss Of Weight 12/12/2011 ЕКАТЕРИНА ZAVALA MD 787.02 Nausea Alone 12/12/2011 ЕКАТЕРИНА ZAVALA MD 789.61 Abdominal Tenderness Right Upper Quadrant 12/12/2011 ЕКАТЕРИНА ZAVALA MD 783.21 Loss Of Weight 12/12/2011 ЕКАТЕРИНА ZAVALA MD 787.02 Nausea Alone 12/12/2011 ЕКАТЕРИНА ZAVALA MD 789.61 Abdominal Tenderness Right Upper Quadrant 12/12/2011 QUOC ARCHULETA DOA K 783.21 Loss Of Weight 12/12/2011 QUOC ARCHULETA DOA K 787.02 Nausea Alone 12/12/2011 QUOC ARCHULETA DOA K 789.61 Abdominal Tenderness Right Upper Quadrant 12/12/2011 QUOC ARCHULETA DOA K 783.21 Loss Of Weight 12/12/2011 ARCHULETA QUOC WHITEA K 787.02 Nausea Alone 12/12/2011 QUOC ARCHULETA DOA K 789.61 Abdominal Tenderness Right Upper Quadrant 01/12/2012 799.02 HYPOXEMIA 01/12/2012 799.02 HYPOXEMIA 01/12/2012 ARCHULETA DO, VANNA K 799.02 HYPOXEMIA 01/12/2012 ARCHULETA DO, VANNA K 799.02 HYPOXEMIA 01/12/2012 799.02 HYPOXEMIA 01/12/2012 ARCHULETA DO, VANNA K 799.02 HYPOXEMIA 01/12/2012 ARCHULETA DO, VANNA K 799.02 HYPOXEMIA 01/12/2012 ARCHULETA DO, VANNA K 799.02 HYPOXEMIA 01/12/2012 799.02 HYPOXEMIA 01/12/2012 799.02 HYPOXEMIA 01/12/2012 799.02 HYPOXEMIA 01/12/2012 799.02 HYPOXEMIA 01/12/2012 799.02 HYPOXEMIA 01/12/2012 799.02 HYPOXEMIA 01/12/2012 799.02 HYPOXEMIA 01/12/2012 ЕКАТЕРИНА ZAVALA MD 799.02 HYPOXEMIA 01/12/2012 ЕКАТЕРИНА ZAVALA MD 799.02 HYPOXEMIA 01/12/2012 ARCHULETA DO, VANNA K 799.02 HYPOXEMIA 01/12/2012 ARCHULETA DO, VANNA K 799.02 HYPOXEMIA 02/01/2012 466.0 Bronchitis, Acute 02/01/2012 493.92 Asthma (acute ) Exacerbation 02/01/2012 780.79 Fatigue 02/01/2012 786.07 Wheezing 02/01/2012 466.0 Bronchitis, Acute 02/01/2012 493.92 Asthma (acute ) Exacerbation 02/01/2012 780.79 Fatigue 02/01/2012 786.07 Wheezing 02/01/2012 ARCHULETA DO, VANNA K 466.0 Bronchitis, Acute 02/01/2012 ARCHULETA DO, VANNA K 493.92 Asthma (acute) Exacerbation 02/01/2012 ARCHULETA DO, VANNA K 780.79 Fatigue 02/01/2012 ARCHULETA DO, VANNA K 786.07 Wheezing 02/01/2012 ARCHULETA DO, VANNA K 466.0 Bronchitis, Acute 02/01/2012 ARCHULETA DO, VANNA K 493.92 Asthma (acute) Exacerbation 02/01/2012 ARCHULETA DO, VANNA K 780.79 Fatigue 02/01/2012 ARCHULETA DO, VANNA K 786.07 Wheezing 02/01/2012 466.0 Bronchitis, Acute 02/01/2012 493.92 Asthma (acute ) Exacerbation 02/01/2012 780.79 Fatigue 02/01/2012 786.07 Wheezing 02/01/2012 ARCHULETA DO, VANNA K 466.0 Bronchitis, Acute 02/01/2012 ARCHULETA DO, VANNA K 493.92 Asthma (acute) Exacerbation 02/01/2012 ARCHULETA DO, VANNA K 780.79 Fatigue 02/01/2012 ARCHULETA DO, VANNA K 786.07 Wheezing 02/01/2012 ARCHULETA DO, VANNA K 466.0 Bronchitis, Acute 02/01/2012 ARCHULETA DO, VANNA K 493.92 Asthma (acute) Exacerbation 02/01/2012 ARCHULETA DO, VANNA K 780.79 Fatigue 02/01/2012 ARCHULETA DO, VANNA K 786.07 Wheezing 02/01/2012 ARCHULETA DO, VANNA K 466.0 Bronchitis, Acute 02/01/2012 ARCHULETA DO, VANNA K 493.92 Asthma (acute) Exacerbation 02/01/2012 ARCHULETA DO, VANNA K 780.79 Fatigue 02/01/2012 ARCHULETA DO, VANNA K 786.07 Wheezing 02/01/2012 466.0 Bronchitis, Acute 02/01/2012 493.92 Asthma (acute ) Exacerbation 02/01/2012 780.79 Fatigue 02/01/2012 786.07 Wheezing 02/01/2012 466.0 Bronchitis, Acute 02/01/2012 493.92 Asthma (acute ) Exacerbation 02/01/2012 780.79 Fatigue 02/01/2012 786.07 Wheezing 02/01/2012 466.0 Bronchitis, Acute 02/01/2012 493.92 Asthma (acute ) Exacerbation 02/01/2012 780.79 Fatigue 02/01/2012 786.07 Wheezing 02/01/2012 466.0 Bronchitis, Acute 02/01/2012 493.92 Asthma (acute ) Exacerbation 02/01/2012 780.79 Fatigue 02/01/2012 786.07 Wheezing 02/01/2012 466.0 Bronchitis, Acute 02/01/2012 493.92 Asthma (acute ) Exacerbation 02/01/2012 780.79 Fatigue 02/01/2012 786.07 Wheezing 02/01/2012 466.0 Bronchitis, Acute 02/01/2012 493.92 Asthma (acute ) Exacerbation 02/01/2012 780.79 Fatigue 02/01/2012 786.07 Wheezing 02/01/2012 466.0 Bronchitis, Acute 02/01/2012 493.92 Asthma (acute ) Exacerbation 02/01/2012 780.79 Fatigue 02/01/2012 786.07 Wheezing 02/01/2012 ЕКАТЕРИНА ZAVALA MD 466.0 Bronchitis, Acute 02/01/2012 ЕКАТЕРИНА ZAVALA MD 493.92 Asthma (acute) Exacerbation 02/01/2012 LUCAS BAUER, ЕКАТЕРИНА Matute 780.79 Fatigue 02/01/2012 LUCAS BAUER, ЕКАТЕРИНА Matute 786.07 Wheezing 02/01/2012 ЕКАТЕРИНА ZAVALA MD 466.0 Bronchitis, Acute 02/01/2012 ЕКАТЕРИНА ZAVALA MD 493.92 Asthma (acute) Exacerbation 02/01/2012 LUCAS BAUER, ЕКАТЕРИНА Matute 780.79 Fatigue 02/01/2012 LUCAS BAUER, ЕКАТЕРИНА Matute 786.07 Wheezing 02/01/2012 ARCHULETA DO, VANNA K 466.0 Bronchitis, Acute 02/01/2012 ARCHULETA DO, VANNA K 493.92 Asthma (acute) Exacerbation 02/01/2012 ARCHULETA DO, VANNA K 780.79 Fatigue 02/01/2012 ARCHULETA DO, VANNA K 786.07 Wheezing 02/01/2012 ARCHULETA DO VANNA K 466.0 Bronchitis, Acute 02/01/2012 ARCHULETA DO, VANNA K 493.92 Asthma (acute) Exacerbation 02/01/2012 ARCHULETA DO, VANNA K 780.79 Fatigue 02/01/2012 ARCHULETA DO, VANNA K 786.07 Wheezing 02/13/2012 346.90 MIGRAINE UNSPECIFIED WITHOUT MENTION OF INTRACTABLE MIGRAINE WITHOUT MENTION OF STATUS MIGRAINOSUS 02/13/2012 V58.69 LONG-TERM ( CURRENT) USE OF OTHER MEDICATIONS 02/13/2012 346.90 MIGRAINE UNSPECIFIED WITHOUT MENTION OF INTRACTABLE MIGRAINE WITHOUT MENTION OF STATUS MIGRAINOSUS 02/13/2012 V58.69 LONG-TERM ( CURRENT) USE OF OTHER MEDICATIONS 02/13/2012 KATHE WHITE VANNA K 346.90 MIGRAINE UNSPECIFIED WITHOUT MENTION OF INTRACTABLE MIGRAINE WITHOUT MENTION OF STATUS MIGRAINOSUS 02/13/2012 ARCHULETA DO VANNA K V58.69 LONG-TERM (CURRENT) USE OF OTHER MEDICATIONS 02/13/2012 KATHE WHITE VANNA K 346.90 MIGRAINE UNSPECIFIED WITHOUT MENTION OF INTRACTABLE MIGRAINE WITHOUT MENTION OF STATUS MIGRAINOSUS 02/13/2012 ARCHULETA DO VANNA K V58.69 LONG-TERM (CURRENT) USE OF OTHER MEDICATIONS 02/13/2012 346.90 MIGRAINE UNSPECIFIED WITHOUT MENTION OF INTRACTABLE MIGRAINE WITHOUT MENTION OF STATUS MIGRAINOSUS 02/13/2012 V58.69 LONG-TERM ( CURRENT) USE OF OTHER MEDICATIONS 02/13/2012 VANNA ARCHULETA DO 346.90 MIGRAINE UNSPECIFIED WITHOUT MENTION OF INTRACTABLE MIGRAINE WITHOUT MENTION OF STATUS MIGRAINOSUS 02/13/2012 VANNA ARCHULETA DO V58.69 LONG-TERM (CURRENT) USE OF OTHER MEDICATIONS 02/13/2012 VANNA ARCHULETA DO 346.90 MIGRAINE UNSPECIFIED WITHOUT MENTION OF INTRACTABLE MIGRAINE WITHOUT MENTION OF STATUS MIGRAINOSUS 02/13/2012 VANNA ARCHULETA DO V58.69 LONG-TERM (CURRENT) USE OF OTHER MEDICATIONS 02/13/2012 VANNA ARCHULETA DO 346.90 MIGRAINE HEADACHE 02/13/2012 VANNA ARCHULETA DO V58.69 LONG-TERM (CURRENT) USE OF OTHER MEDICATIONS 02/13/2012 346.90 MIGRAINE HEADACHE 02/13/2012 V58.69 LONG-TERM ( CURRENT) USE OF OTHER MEDICATIONS 02/13/2012 346.90 MIGRAINE HEADACHE 02/13/2012 V58.69 LONG-TERM ( CURRENT) USE OF OTHER MEDICATIONS 02/13/2012 346.90 MIGRAINE HEADACHE 02/13/2012 V58.69 LONG-TERM ( CURRENT) USE OF OTHER MEDICATIONS 02/13/2012 346.90 MIGRAINE HEADACHE 02/13/2012 V58.69 LONG-TERM ( CURRENT) USE OF OTHER MEDICATIONS 02/13/2012 346.90 MIGRAINE HEADACHE 02/13/2012 V58.69 LONG-TERM ( CURRENT) USE OF OTHER MEDICATIONS 02/13/2012 346.90 MIGRAINE HEADACHE 02/13/2012 V58.69 LONG-TERM ( CURRENT) USE OF OTHER MEDICATIONS 02/13/2012 346.90 MIGRAINE HEADACHE 02/13/2012 V58.69 LONG-TERM ( CURRENT) USE OF OTHER MEDICATIONS 02/13/2012 ЕКАТЕРИНА ZAVALA MD 346.90 MIGRAINE HEADACHE 02/13/2012 ЕКАТЕРИНА ZAVALA MD V58.69 LONG-TERM (CURRENT) USE OF OTHER MEDICATIONS 02/13/2012 ЕКАТЕРИНА ZAVALA MD 346.90 MIGRAINE HEADACHE 02/13/2012 ЕКАТЕРИНА ZAVALA MD V58.69 LONG-TERM (CURRENT) USE OF OTHER MEDICATIONS 02/13/2012 VANNA ARCHULETA DO 346.90 MIGRAINE HEADACHE 02/13/2012 VANNA ARCHULETA DO V58.69 LONG-TERM (CURRENT) USE OF OTHER MEDICATIONS 02/13/2012 VANNA ARCHULETA DO K 346.90 MIGRAINE UNSPECIFIED WITHOUT MENTION OF INTRACTABLE MIGRAINE WITHOUT MENTION OF STATUS MIGRAINOSUS 02/13/2012 KATHE VANNA WHITE V58.69 LONG-TERM (CURRENT) USE OF OTHER MEDICATIONS 02/20/2012 301.9 UNSPECIFIED PERSONALITY DISORDER 02/20/2012 789.07 Abdominal Pain Generalized 02/20/2012 301.9 UNSPECIFIED PERSONALITY DISORDER 02/20/2012 789.07 Abdominal Pain Generalized 02/20/2012 ARCHULETA VANNA WHITE K 301.9 UNSPECIFIED PERSONALITY DISORDER 02/20/2012 KATHE QUOC WHITEA K 789.07 Abdominal Pain Generalized 02/20/2012 ARCHULETA DO VANNA K 301.9 UNSPECIFIED PERSONALITY DISORDER 02/20/2012 ARCHULETA QUOC WHITEA K 789.07 Abdominal Pain Generalized 02/20/2012 301.9 UNSPECIFIED PERSONALITY DISORDER 02/20/2012 789.07 Abdominal Pain Generalized 02/20/2012 KATHE QUOC WHITEA K 301.9 UNSPECIFIED PERSONALITY DISORDER 02/20/2012 ARCHULETA QUOC WHITEA K 789.07 Abdominal Pain Generalized 02/20/2012 ARCHULETA VANNA WHITE K 301.9 UNSPECIFIED PERSONALITY DISORDER 02/20/2012 KATHE QUOC WHITEA K 789.07 Abdominal Pain Generalized 02/20/2012 ARCHULETA QUOC WHITEA K 301.9 UNSPECIFIED PERSONALITY DISORDER 02/20/2012 ARCHULETA QUOC WHITEA K 789.07 Abdominal Pain Generalized 02/20/2012 301.9 UNSPECIFIED PERSONALITY DISORDER 02/20/2012 789.07 Abdominal Pain Generalized 02/20/2012 301.9 UNSPECIFIED PERSONALITY DISORDER 02/20/2012 789.07 Abdominal Pain Generalized 02/20/2012 301.9 UNSPECIFIED PERSONALITY DISORDER 02/20/2012 789.07 Abdominal Pain Generalized 02/20/2012 301.9 UNSPECIFIED PERSONALITY DISORDER 02/20/2012 789.07 Abdominal Pain Generalized 02/20/2012 301.9 UNSPECIFIED PERSONALITY DISORDER 02/20/2012 789.07 Abdominal Pain Generalized 02/20/2012 301.9 UNSPECIFIED PERSONALITY DISORDER 02/20/2012 789.07 Abdominal Pain Generalized 02/20/2012 301.9 UNSPECIFIED PERSONALITY DISORDER 02/20/2012 789.07 Abdominal Pain Generalized 02/20/2012 ЕКАТЕРИНА ZAVALA MD 301.9 UNSPECIFIED PERSONALITY DISORDER 02/20/2012 ЕКАТЕРИНА ZAVALA MD 789.07 Abdominal Pain Generalized 02/20/2012 LUCAS BAUER, ЕКАТЕРИНА Matute 301.9 UNSPECIFIED PERSONALITY DISORDER 02/20/2012 ЕКАТЕРИНА ZAVALA MD 789.07 Abdominal Pain Generalized 02/20/2012 ARCHULETA DO VANNA K 301.9 UNSPECIFIED PERSONALITY DISORDER 02/20/2012 ARCHULETA DO VANNA K 789.07 Abdominal Pain Generalized 02/20/2012 ARCHULETA DO VANNA K 301.9 UNSPECIFIED PERSONALITY DISORDER 02/20/2012 ARCHULETA DO VANNA K 789.07 Abdominal Pain Generalized 02/21/2012 333.94 RESTLESS LEGS SYNDROME (RLS) 02/21/2012 782.0 DISTURBANCE OF SKIN SENSATION 02/21/2012 783.1 ABNORMAL WEIGHT GAIN 02/21/2012 V72.40 EXAMINATION OR TEST UNCONFIRMED 02/21/2012 333.94 RESTLESS LEGS SYNDROME (RLS) 02/21/2012 782.0 DISTURBANCE OF SKIN SENSATION 02/21/2012 783.1 ABNORMAL WEIGHT GAIN 02/21/2012 V72.40 EXAMINATION OR TEST UNCONFIRMED 02/21/2012 ARCHULETA DO, VANNA K 333.94 RESTLESS LEGS SYNDROME (RLS) 02/21/2012 ARCHULETA DO, VANNA K 782.0 DISTURBANCE OF SKIN SENSATION 02/21/2012 ARCHULETA DO, VANNA K 783.1 ABNORMAL WEIGHT GAIN 02/21/2012 ARCHULETA DO, VANNA K V72.40 EXAMINATION OR TEST UNCONFIRMED 02/21/2012 ARCHULETA DO, VANNA K 333.94 RESTLESS LEGS SYNDROME (RLS) 02/21/2012 ARCHULETA DO, VANNA K 782.0 DISTURBANCE OF SKIN SENSATION 02/21/2012 ARCHULETA DO, VANNA K 783.1 ABNORMAL WEIGHT GAIN 02/21/2012 ARCHULETA DO, VANNA K V72.40 EXAMINATION OR TEST UNCONFIRMED 02/21/2012 333.94 RESTLESS LEGS SYNDROME (RLS) 02/21/2012 782.0 DISTURBANCE OF SKIN SENSATION 02/21/2012 783.1 ABNORMAL WEIGHT GAIN 02/21/2012 V72.40 EXAMINATION OR TEST UNCONFIRMED 02/21/2012 ARCHULETA DO, VANNA K 333.94 RESTLESS LEGS SYNDROME (RLS) 02/21/2012 ARCHULETA DO, VANNA K 782.0 DISTURBANCE OF SKIN SENSATION 02/21/2012 ARCHULETA DO, VANNA K 783.1 ABNORMAL WEIGHT GAIN 02/21/2012 KATHE WHITE, VANNA K V72.40 EXAMINATION OR TEST UNCONFIRMED 02/21/2012 ARCHULETA DO, VANNA K 333.94 RESTLESS LEGS SYNDROME (RLS) 02/21/2012 ARCHULETA DO, VANNA K 782.0 DISTURBANCE OF SKIN SENSATION 02/21/2012 KATHE WHITE, VANNA K 783.1 Abnormal Weight Gain 02/21/2012 ARCHULETA DO, VANNA K V72.40 Examination Or Test Unconfirmed 02/21/2012 ARCHULETA DO, VANNA K 333.94 RESTLESS LEGS SYNDROME (RLS) 02/21/2012 ARCHULETA DO, VANNA K 782.0 DISTURBANCE OF SKIN SENSATION 02/21/2012 KATHE WHITE, VANNA K 783.1 Abnormal Weight Gain 02/21/2012 KATHE WHITE, VANNA K V72.40 Examination Or Test Unconfirmed 02/21/2012 333.94 RESTLESS LEGS SYNDROME (RLS) 02/21/2012 782.0 DISTURBANCE OF SKIN SENSATION 02/21/2012 783.1 Abnormal Weight Gain 02/21/2012 V72.40 Examination Or Test Unconfirmed 02/21/2012 333.94 RESTLESS LEGS SYNDROME (RLS) 02/21/2012 782.0 DISTURBANCE OF SKIN SENSATION 02/21/2012 783.1 Abnormal Weight Gain 02/21/2012 V72.40 Examination Or Test Unconfirmed 02/21/2012 333.94 RESTLESS LEGS SYNDROME (RLS) 02/21/2012 782.0 DISTURBANCE OF SKIN SENSATION 02/21/2012 783.1 Abnormal Weight Gain 02/21/2012 V72.40 Examination Or Test Unconfirmed 02/21/2012 333.94 RESTLESS LEGS SYNDROME (RLS) 02/21/2012 782.0 DISTURBANCE OF SKIN SENSATION 02/21/2012 783.1 Abnormal Weight Gain 02/21/2012 V72.40 Examination Or Test Unconfirmed 02/21/2012 333.94 RESTLESS LEGS SYNDROME (RLS) 02/21/2012 782.0 DISTURBANCE OF SKIN SENSATION 02/21/2012 783.1 Abnormal Weight Gain 02/21/2012 V72.40 Examination Or Test Unconfirmed 02/21/2012 333.94 RESTLESS LEGS SYNDROME (RLS) 02/21/2012 782.0 DISTURBANCE OF SKIN SENSATION 02/21/2012 783.1 Abnormal Weight Gain 02/21/2012 V72.40 Examination Or Test Unconfirmed 02/21/2012 333.94 RESTLESS LEGS SYNDROME (RLS) 02/21/2012 782.0 DISTURBANCE OF SKIN SENSATION 02/21/2012 783.1 Abnormal Weight Gain 02/21/2012 V72.40 Examination Or Test Unconfirmed 02/21/2012 ЕКАТЕРИНА ZAVALA MD 333.94 RESTLESS LEGS SYNDROME (RLS) 02/21/2012 ЕКАТЕРИНА ZAVALA MD 782.0 DISTURBANCE OF SKIN SENSATION 02/21/2012 ЕКАТЕРИНА ZAVALA MD 783.1 Abnormal Weight Gain 02/21/2012 ЕКАТЕРИНА ZAVALA MD V72.40 Examination Or Test Unconfirmed 02/21/2012 ЕКАТЕРИНА ZAVALA MD 333.94 RESTLESS LEGS SYNDROME (RLS) 02/21/2012 ЕКАТЕРИНА ZAVALA MD 782.0 DISTURBANCE OF SKIN SENSATION 02/21/2012 ЕКАТЕРИНА ZAVALA MD 783.1 Abnormal Weight Gain 02/21/2012 ЕКАТЕРИНА ZAVALA MD V72.40 Examination Or Test Unconfirmed 02/21/2012 ARCHULETA DO, VANNA K 333.94 RESTLESS LEGS SYNDROME (RLS) 02/21/2012 ARCHULETA DO, VANNA K 782.0 DISTURBANCE OF SKIN SENSATION 02/21/2012 ARCHULETA DO, VANNA K 783.1 Abnormal Weight Gain 02/21/2012 ARCHULETA DO, VANNA K V72.40 Examination Or Test Unconfirmed 02/21/2012 ARCHULETA DO, VANNA K 333.94 RESTLESS LEGS SYNDROME (RLS) 02/21/2012 ARCHULETA DO, VANNA K 782.0 DISTURBANCE OF SKIN SENSATION 02/21/2012 ARCHULETA DO, VANNA K 783.1 ABNORMAL WEIGHT GAIN 02/21/2012 ARCHULETA DO, VANNA K V72.40 EXAMINATION OR TEST UNCONFIRMED 02/23/2012 272.4 DYSLIPIDEMIA 02/23/2012 272.4 DYSLIPIDEMIA 02/23/2012 ARCHULETA DO, VANNA K 272.4 DYSLIPIDEMIA 02/23/2012 ARCHULETA DO, VANNA K 272.4 DYSLIPIDEMIA 02/23/2012 272.4 DYSLIPIDEMIA 02/23/2012 ARCHULETA DO, VANNA K 272.4 DYSLIPIDEMIA 02/23/2012 ARCHULETA DO, VANNA K 272.4 DYSLIPIDEMIA 02/23/2012 ARCHULETA DO VANNA K 272.4 DYSLIPIDEMIA 02/23/2012 272.4 DYSLIPIDEMIA 02/23/2012 272.4 DYSLIPIDEMIA 02/23/2012 272.4 DYSLIPIDEMIA 02/23/2012 272.4 DYSLIPIDEMIA 02/23/2012 272.4 DYSLIPIDEMIA 02/23/2012 272.4 DYSLIPIDEMIA 02/23/2012 272.4 DYSLIPIDEMIA 02/23/2012 ЕКАТЕРИНА ZAVALA MD 272.4 DYSLIPIDEMIA 02/23/2012 ЕКАТЕРИНА ZAVALA MD 272.4 DYSLIPIDEMIA 02/23/2012 ARCHULETA DO VANNA K 272.4 DYSLIPIDEMIA 02/23/2012 ARCHULETA DO VANNA K 272.4 DYSLIPIDEMIA 03/13/2012 314.9 UNSPECIFIED HYPERKINETIC SYNDROME OF CHILDHOOD 03/13/2012 314.9 UNSPECIFIED HYPERKINETIC SYNDROME OF CHILDHOOD 03/13/2012 KATHE WHITE VANNA K 314.9 UNSPECIFIED HYPERKINETIC SYNDROME OF CHILDHOOD 03/13/2012 QUOC ARCHULETA DOA K 314.9 UNSPECIFIED HYPERKINETIC SYNDROME OF CHILDHOOD 03/13/2012 314.9 UNSPECIFIED HYPERKINETIC SYNDROME OF CHILDHOOD 03/13/2012 ARCHULETA DO VANNA K 314.9 UNSPECIFIED HYPERKINETIC SYNDROME OF CHILDHOOD 03/13/2012 ARCHULETA DO VANNA K 314.9 UNSPECIFIED HYPERKINETIC SYNDROME OF CHILDHOOD 03/13/2012 ARCHULETA DO VANNA K 314.9 UNSPECIFIED HYPERKINETIC SYNDROME OF CHILDHOOD 03/13/2012 314.9 UNSPECIFIED HYPERKINETIC SYNDROME OF CHILDHOOD 03/13/2012 314.9 UNSPECIFIED HYPERKINETIC SYNDROME OF CHILDHOOD 03/13/2012 314.9 UNSPECIFIED HYPERKINETIC SYNDROME OF CHILDHOOD 03/13/2012 314.9 UNSPECIFIED HYPERKINETIC SYNDROME OF CHILDHOOD 03/13/2012 314.9 UNSPECIFIED HYPERKINETIC SYNDROME OF CHILDHOOD 03/13/2012 314.9 UNSPECIFIED HYPERKINETIC SYNDROME OF CHILDHOOD 03/13/2012 314.9 UNSPECIFIED HYPERKINETIC SYNDROME OF CHILDHOOD 03/13/2012 ЕКАТЕРИНА ZAVALA MD 314.9 UNSPECIFIED HYPERKINETIC SYNDROME OF CHILDHOOD 03/13/2012 ЕКАТЕРИНА ZAVALA MD 314.9 UNSPECIFIED HYPERKINETIC SYNDROME OF CHILDHOOD 03/13/2012 VANNA ARCHULETA DO 314.9 UNSPECIFIED HYPERKINETIC SYNDROME OF CHILDHOOD 03/13/2012 ARCHULETA DO, VANNA K 314.9 UNSPECIFIED HYPERKINETIC SYNDROME OF CHILDHOOD 04/13/2012 466.0 BRONCHITIS, ACUTE 04/13/2012 ARCHULETA DO, VANNA K 466.0 Bronchitis, Acute 04/13/2012 ARCHULETA DO, VANNA K 466.0 Bronchitis, Acute 04/13/2012 466.0 Bronchitis, Acute 04/13/2012 ARCHULETA DO, VANNA K 466.0 Bronchitis, Acute 04/13/2012 ARCHULETA DO, VANNA K 466.0 Bronchitis, Acute 04/13/2012 ARCHULETA DO, VANNA K 466.0 Bronchitis, Acute 04/13/2012 466.0 Bronchitis, Acute 04/13/2012 466.0 Bronchitis, Acute 04/13/2012 466.0 Bronchitis, Acute 04/13/2012 466.0 Bronchitis, Acute 04/13/2012 466.0 Bronchitis, Acute 04/13/2012 466.0 Bronchitis, Acute 04/13/2012 466.0 Bronchitis, Acute 04/13/2012 ЕКАТЕРИНА ZAVALA MD 466.0 Bronchitis, Acute 04/13/2012 ЕКАТЕРИНА ZAVALA MD 466.0 Bronchitis, Acute 04/13/2012 ARCHULETA DO, VANNA K 466.0 Bronchitis, Acute 04/23/2012 ARCHULETA DO, VANNA K 461.9 SINUSITIS ACUTE 04/23/2012 ARCHULETA DO, VANNA K 729.82 CRAMP OF LIMB 04/23/2012 ARCHULETA DO, VANNA K 461.9 SINUSITIS ACUTE 04/23/2012 ARCHULETA DO, VANNA K 729.82 CRAMP OF LIMB 04/23/2012 461.9 SINUSITIS ACUTE 04/23/2012 729.82 CRAMP OF LIMB 04/23/2012 ARCHULETA DO, VANNA K 461.9 SINUSITIS ACUTE 04/23/2012 ARCHULETA DO, VANNA K 729.82 CRAMP OF LIMB 04/23/2012 ARCHULETA DO, VANNA K 461.9 Sinusitis Acute 04/23/2012 ARCHULETA DO, VANNA K 729.82 Cramp Of Limb 04/23/2012 ARCHULETA DO, VANNA K 461.9 Sinusitis Acute 04/23/2012 ARCHULETA DO, VANNA K 729.82 Cramp Of Limb 04/23/2012 461.9 Sinusitis Acute 04/23/2012 729.82 Cramp Of Limb 04/23/2012 461.9 Sinusitis Acute 04/23/2012 729.82 Cramp Of Limb 04/23/2012 461.9 Sinusitis Acute 04/23/2012 729.82 Cramp Of Limb 04/23/2012 461.9 Sinusitis Acute 04/23/2012 729.82 Cramp Of Limb 04/23/2012 461.9 Sinusitis Acute 04/23/2012 729.82 Cramp Of Limb 04/23/2012 461.9 Sinusitis Acute 04/23/2012 729.82 Cramp Of Limb 04/23/2012 461.9 Sinusitis Acute 04/23/2012 729.82 Cramp Of Limb 04/23/2012 LUCAS BAUER, ЕКАТЕРИНА Matute 461.9 Sinusitis Acute 04/23/2012 LUCAS BAUER, ЕКАТЕРИНА Matute 729.82 Cramp Of Limb 04/23/2012 LUCAS BAUER, ЕКАТЕРИНА Matute 461.9 Sinusitis Acute 04/23/2012 LUCAS BAUER, ЕКАТЕРИНА Matute 729.82 Cramp Of Limb 04/23/2012 VANNA ARCHULETA DO K 461.9 Sinusitis Acute 04/23/2012 VANNA ARCHULETA DO K 729.82 Cramp Of Limb 05/21/2012 VANNA ARCHULETA DO K 626.2 EXCESSIVE OR FREQUENT MENSTRUATION 05/21/2012 VANNA ARCHULETA DO K 786.2 COUGH 05/21/2012 626.2 EXCESSIVE OR FREQUENT MENSTRUATION 05/21/2012 786.2 COUGH 05/21/2012 VANNA ARCHULETA DO K 626.2 EXCESSIVE OR FREQUENT MENSTRUATION 05/21/2012 QUOC ARCHULETA DOA K 786.2 COUGH 05/21/2012 QUOC ARCHULETA DOA K 626.2 EXCESSIVE OR FREQUENT MENSTRUATION 05/21/2012 ARCHULETA QUOC WHITEA K 786.2 Cough 05/21/2012 QUOC ARCHULETA DOA K 626.2 EXCESSIVE OR FREQUENT MENSTRUATION 05/21/2012 QUOC ARCHULETA DOA K 786.2 Cough 05/21/2012 626.2 EXCESSIVE OR FREQUENT MENSTRUATION 05/21/2012 786.2 Cough 05/21/2012 626.2 EXCESSIVE OR FREQUENT MENSTRUATION 05/21/2012 786.2 Cough 05/21/2012 626.2 EXCESSIVE OR FREQUENT MENSTRUATION 05/21/2012 786.2 Cough 05/21/2012 626.2 EXCESSIVE OR FREQUENT MENSTRUATION 05/21/2012 786.2 Cough 05/21/2012 626.2 EXCESSIVE OR FREQUENT MENSTRUATION 05/21/2012 786.2 Cough 05/21/2012 626.2 EXCESSIVE OR FREQUENT MENSTRUATION 05/21/2012 786.2 Cough 05/21/2012 626.2 EXCESSIVE OR FREQUENT MENSTRUATION 05/21/2012 786.2 Cough 05/21/2012 LUCAS BAUER, ЕКАТЕРИНА Matute 626.2 EXCESSIVE OR FREQUENT MENSTRUATION 05/21/2012 ЕКАТЕРИНА ZAVALA MD 786.2 Cough 05/21/2012 LUCAS BAUER, ЕКАТЕРИНА Matute 626.2 EXCESSIVE OR FREQUENT MENSTRUATION 05/21/2012 LUCAS BAUER, ЕКАТЕРИНА Matute 786.2 Cough 05/21/2012 ARCHULETA DO VANNA K 626.2 EXCESSIVE OR FREQUENT MENSTRUATION 05/21/2012 ARCHULETA DO VANNA K 786.2 Cough 06/07/2012 KATHE WHITE VANNA K 112.1 CANDIDIASIS VAGINAL 06/07/2012 KATHE WHITE VANNA K 626.9 UNSPECIFIED DISORDERS OF MENSTRUATION AND OTHER ABNORMAL BLEEDING FROM FEMALE GENITAL TRACT 06/07/2012 ARCHULETA DO VANNA K 112.1 Candidiasis Vaginal 06/07/2012 ARCHULETA DO VANNA K 626.9 UNSPECIFIED DISORDERS OF MENSTRUATION AND OTHER ABNORMAL BLEEDING FROM FEMALE GENITAL TRACT 06/07/2012 KATHE WHITE VANNA K 112.1 Candidiasis Vaginal 06/07/2012 ARCHULETA DO VANNA K 626.9 UNSPECIFIED DISORDERS OF MENSTRUATION AND OTHER ABNORMAL BLEEDING FROM FEMALE GENITAL TRACT 06/07/2012 112.1 Candidiasis Vaginal 06/07/2012 626.9 UNSPECIFIED DISORDERS OF MENSTRUATION AND OTHER ABNORMAL BLEEDING FROM FEMALE GENITAL TRACT 06/07/2012 112.1 Candidiasis Vaginal 06/07/2012 626.9 UNSPECIFIED DISORDERS OF MENSTRUATION AND OTHER ABNORMAL BLEEDING FROM FEMALE GENITAL TRACT 06/07/2012 112.1 Candidiasis Vaginal 06/07/2012 626.9 UNSPECIFIED DISORDERS OF MENSTRUATION AND OTHER ABNORMAL BLEEDING FROM FEMALE GENITAL TRACT 06/07/2012 112.1 Candidiasis Vaginal 06/07/2012 626.9 UNSPECIFIED DISORDERS OF MENSTRUATION AND OTHER ABNORMAL BLEEDING FROM FEMALE GENITAL TRACT 06/07/2012 112.1 Candidiasis Vaginal 06/07/2012 626.9 UNSPECIFIED DISORDERS OF MENSTRUATION AND OTHER ABNORMAL BLEEDING FROM FEMALE GENITAL TRACT 06/07/2012 112.1 Candidiasis Vaginal 06/07/2012 626.9 UNSPECIFIED DISORDERS OF MENSTRUATION AND OTHER ABNORMAL BLEEDING FROM FEMALE GENITAL TRACT 06/07/2012 112.1 Candidiasis Vaginal 06/07/2012 626.9 UNSPECIFIED DISORDERS OF MENSTRUATION AND OTHER ABNORMAL BLEEDING FROM FEMALE GENITAL TRACT 06/07/2012 ЕКАТЕРИНА ZAVALA MD 112.1 Candidiasis Vaginal 06/07/2012 ЕКАТЕРИНА ZAVALA MD 626.9 UNSPECIFIED DISORDERS OF MENSTRUATION AND OTHER ABNORMAL BLEEDING FROM FEMALE GENITAL TRACT 06/07/2012 ЕКАТЕРИНА ZAVALA MD 112.1 Candidiasis Vaginal 06/07/2012 ЕКАТЕРИНА ZAVALA MD 626.9 UNSPECIFIED DISORDERS OF MENSTRUATION AND OTHER ABNORMAL BLEEDING FROM FEMALE GENITAL TRACT 06/07/2012 VANNA ARCHULETA DO 112.1 Candidiasis Vaginal 06/07/2012 VANNA ARCHULETA DO 626.9 UNSPECIFIED DISORDERS OF MENSTRUATION AND OTHER ABNORMAL BLEEDING FROM FEMALE GENITAL TRACT 07/16/2012 VANNA ARCHULETA DO 256.4 POLYCYSTIC OVARIAN SYNDROME 07/16/2012 VANNA ARCHULETA DO K 599.70 HEMATURIA 07/16/2012 256.4 POLYCYSTIC OVARIAN SYNDROME 07/16/2012 599.70 HEMATURIA 07/16/2012 256.4 POLYCYSTIC OVARIAN SYNDROME 07/16/2012 599.70 HEMATURIA 07/16/2012 256.4 POLYCYSTIC OVARIAN SYNDROME 07/16/2012 599.70 HEMATURIA 07/16/2012 256.4 POLYCYSTIC OVARIAN SYNDROME 07/16/2012 599.70 HEMATURIA 07/16/2012 256.4 POLYCYSTIC OVARIAN SYNDROME 07/16/2012 599.70 HEMATURIA 07/16/2012 256.4 POLYCYSTIC OVARIAN SYNDROME 07/16/2012 599.70 HEMATURIA 07/16/2012 256.4 POLYCYSTIC OVARIAN SYNDROME 07/16/2012 599.70 HEMATURIA 07/16/2012 ЕКАТЕРИНА ZAVALA MD 256.4 POLYCYSTIC OVARIAN SYNDROME 07/16/2012 ЕКАТЕРИНА ZAVALA MD 599.70 HEMATURIA 07/16/2012 ЕКАТЕРИНА ZAVALA MD 256.4 POLYCYSTIC OVARIAN SYNDROME 07/16/2012 ЕКАТЕРИНА ZAVALA MD 599.70 HEMATURIA 07/16/2012 VANNA ARCHULETA DO 256.4 POLYCYSTIC OVARIAN SYNDROME 07/16/2012 VANNA ARCHULETA DO 599.70 HEMATURIA 08/16/2012 791.0 MICROALBUMINURIA 08/16/2012 791.0 MICROALBUMINURIA 08/16/2012 791.0 MICROALBUMINURIA 08/16/2012 791.0 MICROALBUMINURIA 08/16/2012 791.0 MICROALBUMINURIA 08/16/2012 791.0 MICROALBUMINURIA 08/16/2012 ЕКАТЕРНИА ZAVALA MD 791.0 MICROALBUMINURIA 08/16/2012 ЕКАТЕРИНА ZAVALA MD 791.0 MICROALBUMINURIA 08/16/2012 VANNA ARCHULETA DO 791.0 MICROALBUMINURIA 09/13/2012 729.1 MYALGIA AND MYOSITIS UNSPECIFIED 09/13/2012 729.1 MYALGIA AND MYOSITIS UNSPECIFIED 09/13/2012 729.1 MYALGIA AND MYOSITIS UNSPECIFIED 09/13/2012 729.1 MYALGIA AND MYOSITIS UNSPECIFIED 09/13/2012 729.1 MYALGIA AND MYOSITIS UNSPECIFIED 09/13/2012 ЕКАТЕРИНА ZAVALA MD 729.1 MYALGIA AND MYOSITIS UNSPECIFIED 09/13/2012 ЕКАТЕРИНА ZAVALA MD 729.1 MYALGIA AND MYOSITIS UNSPECIFIED 09/13/2012 VANNA ARCHULETA DO 729.1 MYALGIA AND MYOSITIS UNSPECIFIED 09/26/2012 401.1 HYPERTENSION, BENIGN ESSENTIAL 09/26/2012 V70.0 ROUTINE GENERAL MEDICAL EXAMINATION AT A HEALTH CARE FACILITY 09/26/2012 401.1 HYPERTENSION, BENIGN ESSENTIAL 09/26/2012 V70.0 ROUTINE GENERAL MEDICAL EXAMINATION AT A HEALTH CARE FACILITY 09/26/2012 401.1 HYPERTENSION, BENIGN ESSENTIAL 09/26/2012 V70.0 ROUTINE GENERAL MEDICAL EXAMINATION AT A HEALTH CARE FACILITY 09/26/2012 401.1 HYPERTENSION, BENIGN ESSENTIAL 09/26/2012 V70.0 ROUTINE GENERAL MEDICAL EXAMINATION AT A HEALTH CARE FACILITY 09/26/2012 ЕКАТЕРИНА ZAVALA MD 401.1 ESSENTIAL HYPERTENSION BENIGN 09/26/2012 ЕКАТЕРИНА ZAVALA MD V70.0 ROUTINE GENERAL MEDICAL EXAMINATION AT A HEALTH CARE FACILITY 09/26/2012 ЕКАТЕРИНА ZAVALA MD 401.1 ESSENTIAL HYPERTENSION BENIGN 09/26/2012 ЕКАТЕРИНА ZAVALA MD V70.0 ROUTINE GENERAL MEDICAL EXAMINATION AT A HEALTH CARE FACILITY 09/26/2012 VANNA ARCHULETA DO 401.1 ESSENTIAL HYPERTENSION BENIGN 09/26/2012 VANNA ARCHULETA DO V70.0 ROUTINE GENERAL MEDICAL EXAMINATION AT A HEALTH CARE FACILITY 01/16/2013 ЕКАТЕРИНА ZAVALA MD 782.1 RASH 01/16/2013 ЕКАТЕРИНА ZAVALA MD 782.1 RASH 01/16/2013 VANNA ARCHULETA DO 782.1 RASH Procedures Code Description [place] [id number] SPIROMETRY 03/07/2012 33776 BRONCHODILATION PRE/POST 03/07/2012 67443 RESPIRATORY FLOW VOLUME LOOP 03/07/2012 30752 PSYCHO TESTING 1 HR W/DR 03/15/2012 68468 INR (IN HOUSE) 03/15/2012 21948 URINE DRUG SCREEN (IN-HOUSE ) 03/15/2012 05979 INR (IN HOUSE) 04/13/2012 13501 THERAPUTIC INJ SQ/IM 04/23/2012 J1100 DEXAMETHASONE SODIUM PHOS, 1 MG 04/23/2012 J3420 B12 VITAMIN INJECTION 04/23/2012 38246 INR (IN HOUSE) 04/23/2012 04948 CMP 04/23/2012 85342 INR (IN HOUSE) 04/23/2012 73431 INR (IN HOUSE) 05/18/2012 91248 ROUTINE VENIPUNCTURE 05/21/2012 36475 MICRO ALBUMIN-IN HOUSE 05/21/2012 95089 A1C (IN-HOUSE) 05/21/2012 12902 LIPID PANEL 05/21/2012 19802 PT/INR 05/22/2012 08065 VITAMIN D 25-HYDROXY (D2,D3 , TOTAL) 05/22/2012 82075 PT/INR 05/22/2012 77773 ROUTINE VENIPUNCTURE 06/07/2012 82918 FSH 06/07/2012 74340 LH 06/07/2012 02891 PROLACTIN 06/07/2012 41110 TESTOSTERONE-WOMEN & CHILDREN 06/07/2012 21333 TSH 06/07/2012 79068 US PELVIC COMPL (REFLEX CPT - 70776) 06/18/2012 80073 URINE DRUG SCREEN (IN-HOUSE ) 06/18/2012 NEURO Adonay Murphyra 06/26/2012 85803 INR (IN HOUSE) 06/27/2012 57405 URINE DRUG SCREEN (IN-HOUSE ) 07/16/2012 74334 MRI BRAIN W/O & W/DYE 07/16/2012 Medical O [facility] 07/25/2012 51109 ROUTINE VENIPUNCTURE 08/16/2012 27050 ROUTINE VENIPUNCTURE 08/16/2012 94381 A1C (IN-HOUSE) 08/16/2012 73924 A1C (IN-HOUSE) 08/16/2012 04744 URINE DRUG SCREEN (IN-HOUSE ) 08/16/2012 24098 MICRO ALBUMIN-IN HOUSE 08/16/2012 15384 URINE DRUG SCREEN (IN-HOUSE ) 08/16/2012 97963 MICRO ALBUMIN-IN HOUSE 08/16/2012 57938 CMP 08/16/2012 68428 CMP 08/16/2012 1152216 GFR CALC (RESULT ONLY) 08/16/2012 2216161 GFR CALC (RESULT ONLY) 08/16/2012 73933 MICROALBUMIN 08/16/2012 65368 PTH (intact) 08/16/2012 Physical Physical Therapy, [facility] 08/16/2012 51156 MICROALBUMIN 08/16/2012 23227 ROUTINE VENIPUNCTURE 08/17/2012 78611 DRUG BLOOD SCREEN 08/17/2012 45008 PT/INR 08/17/2012 [id number] CALCIUM (RESULT ONLY) 08/17/2012 1617401 PTH INTACT LIBERTY (RESULT ONLY) 08/17/2012 11403 PTH (intact) 08/20/2012 Physical Physical Therapy, [facility] 08/20/2012 35879 UA W/ CULTURE IF INDICATED 08/23/2012 06892 CULTURE URINE 09/13/2012 J3420 B12 VITAMIN INJECTION 09/26/2012 40126 INR (IN HOUSE) 10/10/2012 80434 INR (IN HOUSE) 01/16/2013 89233 CMP 01/17/2013 72560 H PYLORI (IN-HOUSE) 01/17/2013 41210 LIPASE 01/17/2013 27114 CBC 01/17/2013 Results There is no data. Encounters ACCT No. Visit Date/Time Discharge Status Pt. Type Provider Facility Loc./Unit Complaint [id number] 03/08/2013 10:20:00 03/08/2013 23:59:59 CLS Outpatient VANNA ARCHULETA DO [id number] 01/16/2013 13:26:00 01/16/2013 23:59:59 CLS Outpatient ЕКАТЕРИНА ZAVALA MD [id number] 01/16/2013 13:26:00 01/16/2013 23:59:59 CLS Outpatient ЕКАТЕРИНА ZAVALA MD [id number] 07/16/2012 10:48:00 07/16/2012 23:59:59 CLS Outpatient VANNA ARCHULETA DO [id number] 06/18/2012 10:08:00 06/18/2012 23:59:59 CLS Outpatient VANNA ARCHULETA DO [id number] 06/07/2012 10:44:00 06/07/2012 23:59:59 CLS Outpatient VANNA ARCHULETA DO [id number] 05/31/2012 15:00:00 05/31/2012 23:59:59 CLS Outpatient [id number] 05/21/2012 10:23:00 05/21/2012 23:59:59 CLS Outpatient VANNA ARCHULETA DO [id number] 04/23/2012 10:36:00 04/23/2012 23:59:59 CLS Outpatient VANNA ARCHULETA DO [id number] 04/13/2012 09:58:00 04/13/2012 23:59:59 CLS Outpatient [id number] 03/15/2012 09:16:00 03/15/2012 23:59:59 CLS Outpatient [id number] 02/24/2012 16:03:00 02/24/2012 23:59:59 CLS Outpatient VANNA ARCHULETA DO [id number] 11/07/2012 08:24:00 Document Registration [id number] 10/10/2012 09:26:00 Document Registration [id number] 09/26/2012 16:35:00 Document Registration [id number] 09/13/2012 08:08:00 Document Registration [id number] 08/17/2012 08:38:00 Document Registration [id number] 08/16/2012 08:48:00 Document Registration [id number] 08/16/2012 08:48:00 Document Registration
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
[2018-05-17 18:02] VITALS: BP 100/53
== END 2018-05-17 18:04 | disposition home or self-care (01) ==
LOC: EDUNIT# 17:29 → ER 17:30
DX: L76.34 Postprocedural seroma of skin and subcutaneous tissue following other procedure (principal); J45.909 Unspecified asthma, uncomplicated; I10 Essential (primary) hypertension; G43.909 Migraine, unspecified, not intractable, without status migrainosus; E11.9 Type 2 diabetes mellitus without complications; F41.9 Anxiety disorder, unspecified; F31.9 Bipolar disorder, unspecified; Z87.440 Personal history of urinary (tract) infections; Z87.19 Personal history of other diseases of the digestive system; Z87.448 Personal history of other diseases of urinary system; Z88.6 Allergy status to analgesic agent; Z88.8 Allergy status to other drugs, medicaments and biological substances; Z87.891 Personal history of nicotine dependence; Z90.49 Acquired absence of other specified parts of digestive tract; Z98.890 Other specified postprocedural states; Z98.51 Tubal ligation status; Z86.711 Personal history of pulmonary embolism
CPT/HCPCS: 99282

== ENCOUNTER 2018-05-21 12:14 | Inpatient (IN) | payer MEDICARE, MEDICAID ==
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
[~2018-05-21] VITALS: Ht 165.1 cm; Wt 115.7 kg
[2018-05-21] MEDS ORDERED: MIDAZOLAM 2 MG/2 ML (VERSED) VIAL IV ONE (13:00)
[2018-05-21] MEDS ORDERED: FAMOTIDINE 20MG/2ML IV (PEPCID) IV ONE (13:00)
[2018-05-21] MEDS ORDERED: ceFAZolin 2 GM IV Premixed 50 ML IV ONE (13:15)
[2018-05-21] MEDS: LACTATED RINGERS 1,000 ML IV PRN ×2 (13:15→16:19)
[2018-05-21 13:17] LABS: HEMOGLOBIN 12.9 G/DL (11.5-16.0); MEAN PLATELET VOLUME 11.9 FL (7.4-10.4); RED BLOOD COUNT 4.66 10^6/uL (4.35-5.85); RED CELL DISTRIBUTION WIDTH 13.9 % (10.0-14.5); WHITE BLOOD COUNT 8.3 10^3/uL (4.3-11.0)
[2018-05-21] MEDS ORDERED: MIDAZOLAM 2 MG/2 ML (VERSED) VIAL ONE (13:27)
[2018-05-21] MEDS ORDERED: ONDANSETRON 4 MG/2 ML (SDV) Z0FRAN ONE (13:27)
[2018-05-21] MEDS ORDERED: proPOfol 200 MG/20 ML (DIPRIVAN) VIAL IV ONE (13:27)
[2018-05-21] MEDS ORDERED: DEXAMETHASONE 10 MG/ML (DECADRON) 1 ML VIAL ONE (13:27)
[2018-05-21] MEDS ORDERED: ROCURONIUM 10 MG/ML 5 ML SYRINGE IV ONE (13:27)
[2018-05-21] MEDS ORDERED: fentaNYL INJECTION 100 MCG/2 ML AMP ONE (13:27)
[2018-05-21] MEDS ORDERED: SEVOFLURANE (ULTANE) 15 ML INHAL SOLN ONE (13:27)
[2018-05-21] MEDS ORDERED: DEXMEDETOMIDINE 200 MCG/2 ML (PRECEDEX) VIAL IV ONE ×2 (13:30→16:09)
[2018-05-21] MEDS ORDERED: BUP/EPI 0.5% 1:200,000 (SENSORCAINE) 30 ML VIAL ONE (13:45)
[2018-05-21] MEDS ORDERED: VANCOMYCIN 1000 MG/VIAL ONE (13:45)
[2018-05-21] MEDS ORDERED: BACITRACIN 100,000 UNIT/NS 1000 ML POUR BOTTLE IR ONE ×2 (15:15)
[2018-05-21] MEDS ORDERED: GLYCOPYRROLATE 0.2 MG/ML (ROBINUL) 2 ML VIAL ONE (16:08)
[2018-05-21] MEDS ORDERED: NEOSTIGMINE 1 MG/ML 5 ML SYRINGE ONE (16:08)
[2018-05-21] MEDS ORDERED: SUCCINYLCHOLINE INJ 100 MG/5 ML SYR ONE (16:08)
[2018-05-21] MEDS ORDERED: HYDROmorphone 2 MG/ML VIAL (DILAUDID) IV ONE (17:15)
[2018-05-21] MEDS ORDERED: ONDANSETRON 4 MG/2 ML (SDV) Z0FRAN IVP PRN (17:15)
[2018-05-21] MEDS ORDERED: morphine INJ 10 MG/ML 1ML (SYR OR VIAL) IVP ONE (17:15)
[2018-05-21] MEDS ORDERED: MEPERIDINE (DEMEROL) INJ 50 MG/ML IVP ONE (17:15)
[2018-05-21] MEDS ORDERED: DIAZEPAM PO PRN (17:30)
[2018-05-21] MEDS ORDERED: fentaNYL INJECTION 100 MCG/2 ML AMP IVP ONE (17:30)
[2018-05-21] MEDS ORDERED: ONDANSETRON 4 MG/2 ML (SDV) Z0FRAN IV PRN (17:30)
[2018-05-21] MEDS ORDERED: HYDROcodone/APAP 5 MG/325 MG (LORTAB) TAB PO PRN (17:30)
[2018-05-21] MEDS ORDERED: ACETAMINOPHEN 325 MG TABLET PO PRN (17:30)
--- NOTE | 2018-05-21 18:05 | NUR ---
HITESH KIRKLAND admitted to room 433-1, with an admitting diagnosis of S/P LAMINECTOMY AND SPINAL FUSION L4-L5, on 05/21/18 from [facility]G via [facility], accompanied by BEVERLY.HITESH KIRKLAND introduced to surroundings, call light, bed controls, phone, TV, temperature control, lights, meal times, smoking policy, visitor policy, side rail policy, bathrooms and showers. Patient Rights given to patient in the handbook. HITESH KIRKLAND verbalizes understanding that [facility] is not responsible for the loss or damage to any personal effects or valuables that are kept in the patients posession during their hospitalization. The Patient'S Care Plans were discussed with the PATIENT WELL Discharge Planning. HITESH KIRKLAND verbalizes understanding of Interdisciplinary Patient Education. Patient and/or family were informed about the Rapid Response Team and its purpose.
[2018-05-21 18:10] VITALS: BP 112/69
[2018-05-21] MEDS ORDERED: NS IV 1000 ML 1,000 ML ONE (18:26)
[2018-05-21] MEDS: NS IV 1000 ML 1,000 ML IV SCH (18:26)
--- NOTE | 2018-05-21 19:10 | Diagnostic Imaging Report ---
INDICATION: Back pain Intraoperative fluoroscopy used for lumbar decompression per Dr. Elbert Beach. Fusion device seen at what appears to be the L4-5 level. One minute and 4 seconds of fluoroscopy time was used in surgery. IMPRESSION: Intraoperative fluoroscopy used during lumbar decompression surgery. Dictated by: Dictated on workstation # [id number]
[2018-05-21 20:25] VITALS: BP 112/60
[2018-05-21] MEDS: oxyCODONE/APAP 5/325MG (PERCOCET 5) TABLET PO PRN (20:34)
[2018-05-21] MEDS: fentaNYL INJECTION 100 MCG/2 ML AMP IVP PRN ×2 (20:39→23:47)
[2018-05-21] MEDS: inSUlin ASPART (NovoLOG) 1 UNIT/0.01 ML (CHARGE PER UNIT) SC SCH (20:43)
[2018-05-21] MEDS: LITHIUM CARBONATE 300 MG TABLET PO SCH (21:29)
[2018-05-21] MEDS: FAMOTIDINE 20 MG (PEPCID) TABLET PO SCH (21:29)
[2018-05-21] MEDS: ceFAZolin INJECTION 1,000 MG in NS (IVPB) 50 ML IV SCH (21:29)
[2018-05-21] MEDS: DOCUSATE SODIUM 100 MG (COLACE) CAP PO SCH (21:29)
[2018-05-22] VITALS: BP 100/60
[2018-05-22] MEDS: oxyCODONE/APAP 5/325MG (PERCOCET 5) TABLET PO PRN ×4 (02:42→18:50)
[2018-05-22 03:50] VITALS: BP 106/55
[2018-05-22] MEDS: fentaNYL INJECTION 100 MCG/2 ML AMP IVP PRN ×5 (04:36→20:50)
[2018-05-22] MEDS: ceFAZolin INJECTION 1,000 MG in NS (IVPB) 50 ML IV SCH ×2 (04:40→12:52)
[2018-05-22] MEDS: inSUlin ASPART (NovoLOG) 1 UNIT/0.01 ML (CHARGE PER UNIT) SC SCH ×4 (05:53→20:33)
[2018-05-22 06:43] LABS: HEMOGLOBIN 10.8 G/DL (11.5-16.0); RED BLOOD COUNT 3.8 10^6/uL (4.35-5.85); RED CELL DISTRIBUTION WIDTH 13.8 % (10.0-14.5); WHITE BLOOD COUNT 6.6 10^3/uL (4.3-11.0)
[2018-05-22 07:10] LABS: ALANINE AMINOTRANSFERASE 21 U/L (0-55); ALBUMIN 3.4 GM/DL (3.2-4.5); ALKALINE PHOSPHATASE 58 U/L (40-136); BILIRUBIN,TOTAL 0.4 MG/DL (0.1-1.0); BUN/CREATININE RATIO 10; CALCIUM 8.4 MG/DL (8.5-10.1); CARBON DIOXIDE 24 MMOL/L (21-32); CHLORIDE 106 MMOL/L (98-107); GFR ESTIMATED > 60; GLUCOSE 139 MG/DL (70-105); POTASSIUM 3.6 MMOL/L (3.6-5.0); SODIUM 138 MMOL/L (135-145); TOTAL PROTEIN 5.5 GM/DL (6.4-8.2)
[2018-05-22] MEDS ORDERED: PATIENT MAY USE OWN MED,SINGLE MED PO SCH (07:45)
[2018-05-22 08:00] VITALS: BP 155/74
[2018-05-22] MEDS: FAMOTIDINE 20 MG (PEPCID) TABLET PO SCH ×2 (08:05→20:44)
[2018-05-22] MEDS: NS IV 1000 ML 1,000 ML IV SCH (08:05)
[2018-05-22] MEDS: amLODIPine 5 MG (NORVASC) TAB PO SCH (08:05)
[2018-05-22] MEDS: LINAGLIPTIN (TRADJENTA) 5 MG TABLET PO SCH (08:05)
[2018-05-22] MEDS: DOCUSATE SODIUM 100 MG (COLACE) CAP PO SCH ×2 (08:05→20:44)
[2018-05-22] MEDS ORDERED: NON-FORMULARY MEDICATION 1 EA EA (Amlodipine Besylate (Norvasc) 5 MG) PO SCH (09:00)
[2018-05-22] MEDS ORDERED: NON-FORMULARY MEDICATION 1 EA EA (Sitagliptin Phosphate (Januvia) 100 MG) PO SCH (09:00)
--- NOTE | 2018-05-22 09:06 | Physical Therapy Evaluation ---
PT Evaluation-General Medical Diagnosis Admission Date May 21, 2018 at 18:48 Medical Diagnosis: Stenosis Onset Date: May 21, 2018 Therapy Diagnosis Therapy Diagnosis: gait deviation Height/Weight Height (Feet): 5 Height (Inches): 5.00 Weight (Pounds): 255 Weight (Ounces): 0.0 Precautions Precautions/Isolations: Standard Precautions Weight Bear Status Right Lower Extremity: Right Full Weight Bearing Left Lower Extremity: Left Full Weight Bearing Referral Physician: Kong Mcintyre Reason for Referral: Evaluation/Treatment Medical History Current History s/p laminectomy L4-5 Social History Home: Multilevel Current Living Status: Spouse Entry Into Home: Stairs With Railing PT Steps Into Home: 5 PT Steps Inside Home: 12 Prior/Core FIM Prior Level of Function Therapy Code Descriptions/Definitions Functional [place] Measure: 0=Not Assessed/NA 4=Minimal Assistance 1=Total Assistance 5=Supervision or Setup 2=Maximal Assistance 6=Modified [place] 3=Moderate Assistance 7=Complete [place] Therapy Quality Codes: 6 Independent with activity with or without an assistive device 5 Patient requires set up or clean up by helper. Patient completes activity by themselves 4 Supervision or touching assist (CGA). Eclectic provide cues , steadying assist 3 The helper provides less than half the effort to complete the activity 2 The helper provides more than half the effort to complete the activity 1 Dependent. The helper does all the effort to complete an activity 7 Patient refused to complete or attempt activity 9 The patient did not perform the activity before the current illness or injury 88 Not attempted due to Medical conditions or safety concerns Functional Abilities and Goals: Independent: Patient completed the activities by him/herself, with or without an assistive device, with no assistance from a helper. Needed Some Help: Patient needed partial assistance from another person to complete activities. Dependent: A helper completed the activities for the patient. Unknown: Not Applicable: Bed Mobility: 7 Transfers (B,C,W/C) (FIM): 7 Gait: 7 Stairs: 7 Indoor Mobility (Ambulation): Independent Stairs: Independent Prior Devices Use: None PT Evaluation-Current Subjective Pt was up in recliner with nurse in room. Pt agrees to PT. Nurse reports that pt was able to get from bed to chair with no problem and follow precautions. Pain Numeric Pain Scale: 5-Moderate Pain Location Body Site: Back Objective Patient Orientation: Person, Normal For Age Attachments: Drains, IV Wound vac ROM/Strength ROM Lower Extremities WNL with precautions Strength Lower Extremities WNL Integumentary/Posture Bowel Incontinence: No Bladder Incontinence: No Sensory Vision: Functional Hearing: Functional Sensation Right Lower Extremit: Intact Sensation Left Lower Extremity: Intact Transfers Therapy Code Descriptions/Definitions Functional [place] Measure: 0=Not Assessed/NA 4=Minimal Assistance 1=Total Assistance 5=Supervision or Setup 2=Maximal Assistance 6=Modified [place] 3=Moderate Assistance 7=Complete [place] Transfers (B, C, W/C) (FIM): 6 Scootin Supine to/from Sit: 7 Sit to/from Stand: 6 Gait Mode of Locomotion: Walk Anticipated Mode of Locomotion: Walk Gait (FIM): 6 Distance (FIM): 3=150 ft Distance: 300' Gait Level of Assist: 6 Gait Assistive Device: FWW Comments/Gait Description PT assisted with IV pole. Balance Sitting Static: Good Sitting Dynamic: Good Standing Static: Good Standing Dynamic: Good Assessment/Needs Pt was able to get from recliner to FWW with minimal cues for safety. Pt was able to amb with FWW and modified independent with PT assisting IV pole and wound vac. Pt did take standing recovery breaks but reports its due to IV being uncomfortable in hand. Pt returned to room and is up in chair with all needs met. Patient to ambulate PRN in hallway with or without nursing. No skilled PT indicated. Rehab Potential: Good PT Plan Problem List Problem List: Activity Tolerance Treatment/Plan Treatment Plan: Discontinue PT Treatment Plan: Other Treatment Duration: May 22, 2018 Frequency: Estimated Hrs Per Day: Other Patient and/or Family Agrees t: Yes PT to DC Discharge Recommendations Therapy D/C Recommendations: Home w/ Family Support Time/GCodes Time In: 808 Time Out: 823 Total Billed Treatment Time: 15 Total Billed Treatment 1 visit EVlowC 15 min YAKELIN ROSSI PT May 22, 2018 09:06
--- NOTE | 2018-05-22 10:01 | Anesthesia-General Post-Op ---
General Patient Condition Mental Status/LOC: Same as Preop Cardiovascular: Satisfactory Nausea/Vomiting: Absent Respiratory: Satisfactory Pain: Controlled Complications: Absent Post Op Complications Complications None Follow Up Care/Instructions Patient Instructions None needed. Anesthesia/Patient Condition Patient Condition Patient is doing well, stable vital signs, no apparent adverse anesthesia problems. Reports pain is still present but controlled with medications. No complications reported per nursing. ZOE PALACIOS CRNA May 22, 2018 10:01
--- NOTE | 2018-05-22 11:59 | OPERATIVE REPORT ---
DATE OF SERVICE: 05/21/2018 SURGEON: Elbert Beach DO THREAD ROLLER: MAAME Maher. This is a medically necessary procedure. Assistance was necessary for retraction of vital neurovascular structures. Without an geriatric assistant, the procedure would not be possible. PREOPERATIVE DIAGNOSES: 1. Lumbar spinal stenosis (bony, foraminal). 2. Lumbar radiculopathy. 3. Neurogenic claudication. POSTOPERATIVE DIAGNOSES: 1. Lumbar spinal stenosis (bony, foraminal). 2. Lumbar radiculopathy. 3. Neurogenic claudication. PROCEDURES PERFORMED: 1. L4-L5 posterior instrumentation. 2. L4-L5 posterior spinal fusion. 3. Bilateral laminectomy L4-L5 with complete facetectomies bilaterally. 4. Use of human Allograft for spine. COMPLICATIONS: None. DRAIN PLACED: Hemovac. ESTIMATED BLOOD LOSS: See anesthesia records. ANESTHESIA: General endotracheal tube anesthesia with local anesthetic. HISTORY OF PRESENT ILLNESS: The patient is a very pleasant 27-year-old female who presented to me with severe radiating lower extremity pain. Advanced imaging did show a questionably fused L4-L5 segment with severe degenerative disk disease and collapse. More importantly, it showed bilateral severe foraminal stenosis. I did discuss the treatment options with the patient. She had failed all conservative measures and wished to proceed with operative intervention. She understood the risks and benefits. DESCRIPTION OF PROCEDURE: The patient was identified by name on wrist band in the preoperative holding area. Her operative site was signed, consent was signed. SCDs were placed. Neuro monitoring was hooked up and antibiotics were started. She was taken to the operating room theater and placed under general endotracheal tube anesthesia and then transferred to the operating room table in the prone position. She was prepped and draped in the usual sterile fashion. Formal timeout was conducted. I then infiltrated the skin and soft tissue with 0.5% Marcaine with epinephrine, made a midline lumbar incision over the L4-L5 level. I proceeded with bilateral subperiosteal paraspinal muscular approach exposing the L4-L5 level. I placed pedicle screws on the right side under fluoroscopy to assess their position on AP and lateral x-ray. It was unable to place a pedicle screw in the left L5 pedicle. Therefore, I proceeded by decompression. I performed a bilateral laminectomy utilizing a high speed bur and Kerrison rongeurs. I performed a complete bilateral facetectomies, identified the exiting nerve roots. 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 This made placement of the pedicle screw and possible. Therefore, I settled for unilateral screws on the right side at L4 and L5. When the decompression was complete, I placed a naomi on the right. I placed set screws were final tightened. We irrigated the wound and maintained hemostasis. I placed a deep subfascial Hemovac drain. I decorticated the remaining posterior bony elements bilaterally and I packed human allograft along the left and right gutter to promote posterior spinal fusion. I closed the wound utilizing 0 Vicryl followed by 2-0 Vicryl followed by shonna for skin. We applied dressings, took the patient in the supine position in the PACU where she awoke without incident. She tolerated the procedure well. The plan at this time is to have the patient out of bed on postoperative day #1 in a brace while out of bed. We will discontinue her drain and Loredo catheter per my protocol. Please note, instrumentation utilized for this procedure with [facility]. Job ID: [id number] DocumentID: [id number] Dictated Date: 05/22/2018 07:53:06 Distributor Operator Date: 05/22/2018 11:58:23 Dictated By: ELBERT BEACH DO
[2018-05-22 12:00] VITALS: BP 124/56
--- NOTE | 2018-05-22 13:42 | Diagnostic Imaging Report ---
INDICATION: Lumbar spine surgery. Time of exam 10:12 a.m. FINDINGS: Two views of the lumbar spine demonstrate postop changes of posterior instrumented fusion. There is a right-sided vertical stabilization naomi and pedicle screws transfixing L5-S1 levels. Hardware appears to be intact. Vertebral body heights are maintained. Generalized lumbar spondylosis is seen with variable disc space narrowing and marginal spurring. IMPRESSION: Postop changes at the L5-S1 level. Dictated by: Dictated on workstation # [id number]
[2018-05-22 16:00] VITALS: BP 121/58
--- NOTE | 2018-05-22 17:06 | Progress Note (SOAP) ---
Subjective Date Seen by a Provider: May 22, 2018 Time Seen by a Provider: 17:04 Subjective/Events-last exam ADELINE. Doing well. has some incisional pain. has some R hip pain. no N/V/CP/SOB. Objective Exam Vital Signs Date Time Temp Pulse Resp B/P (MAP) Pulse Ox O2 Delivery O2 Flow Rate FiO2 05/22/18 12:00 99.1 85 18 124/56 (78) 100 Room Air 05/22/18 09:00 99 Room Air 05/22/18 08:00 98.0 68 18 155/74 (101) 100 Room Air 05/22/18 03:50 97.0 68 19 106/55 (72) 99 Room Air 05/22/18 00:00 98.0 69 18 100/60 (73) 100 Room Air 05/21/18 21:00 Room Air 05/21/18 20:25 98.3 74 18 112/60 (77) 98 Room Air 05/21/18 19:59 98 05/21/18 18:10 96.9 66 20 112/69 (83) 99 Room Air 05/21/18 18:05 Room Air I & O 05/22/18 07:00 Intake Total 1610 ml Output Total 150 ml Balance 1460 ml Capillary Refill : General Appearance: No Apparent Distress Extremity: Other (5/5 motor renny LE, wound CDI, 2/4 DP, PT) Results Lab Laboratory Tests 05/21/18 20:40: Glucometer 184H 05/22/18 05:39: Glucometer 145H 05/22/18 06:22: White Blood Count 6.6, Red Blood Count 3.80L, Hemoglobin 10.8L, Hematocrit 32L, Mean Corpuscular Volume 84, Mean Corpuscular Hemoglobin 28, Mean Corpuscular Hemoglobin Concent 34, Red Cell Distribution Width 13.8, Platelet Count 160, Mean Platelet Volume 12.0H, Sodium Level 138, Potassium Level 3.6, Chloride Level 106, Carbon Dioxide Level 24, Anion Gap 8, Blood Urea Nitrogen 7, Creatinine 0.70, Estimat Glomerular Filtration Rate > 60, BUN/Creatinine Ratio 10, Glucose Level 139H, Calcium Level 8.4L, Corrected Calcium 8.9, Total Bilirubin 0.4, Aspartate Amino Transf (AST/SGOT) 21, Alanine Aminotransferase ( ALT/SGPT) 21, Alkaline Phosphatase 58, Total Protein 5.5L, Albumin 3.4 05/22/18 11:30: Glucometer 171H Microbiology 05/21/18 MRSA Screen - Final, Complete MRSA not isolated Assessment/Plan Assessment/Plan Assess & Plan/Chief Complaint ASSESSMENT: POD 1 s/p PSF PLAN: OOB with brace pain control d/c drain in the AM home monday vs Clinical Quality Measures DVT/VTE Risk/Contraindication: Risk Factor Score Per Nursin RFS Level Per Nursing on Admit: 3=High CHAPO TORRES DO May 22, 2018 17:06
[2018-05-22 20:00] VITALS: BP 141/66
[2018-05-22] MEDS: DIAZEPAM 5 MG (VALIUM) TABLET PO PRN (20:00)
[2018-05-22] MEDS: LITHIUM CARBONATE 300 MG TABLET PO SCH (20:44)
[2018-05-23] VITALS: BP 128/59
[2018-05-23] MEDS: oxyCODONE/APAP 5/325MG (PERCOCET 5) TABLET PO PRN ×3 (04:26→18:46)
[2018-05-23] MEDS: inSUlin ASPART (NovoLOG) 1 UNIT/0.01 ML (CHARGE PER UNIT) SC SCH ×4 (05:49→21:34)
[2018-05-23 08:00] VITALS: BP 167/81
[2018-05-23] MEDS: FAMOTIDINE 20 MG (PEPCID) TABLET PO SCH ×2 (09:09→21:42)
[2018-05-23] MEDS: amLODIPine 5 MG (NORVASC) TAB PO SCH (09:09)
[2018-05-23] MEDS: LINAGLIPTIN (TRADJENTA) 5 MG TABLET PO SCH (09:09)
[2018-05-23] MEDS: DOCUSATE SODIUM 100 MG (COLACE) CAP PO SCH ×2 (09:09→21:42)
--- NOTE | 2018-05-23 12:47 | Progress Note (SOAP) ---
Subjective Date Seen by a Provider: May 23, 2018 Time Seen by a Provider: 12:44 Subjective/Events-last exam POD #2 s/p lumbar decompression and fusion. c/o significant back pain, also c/ o constipation. Leg pain is tolerable. Reports + flatus. denies n/v. Review of Systems General: No Chills, No Night Sweats HEENT: No Head Aches Pulmonary: No Dyspnea, No Cough Cardiovascular: No: Chest Pain Gastrointestinal: Constipation; No: Nausea Musculoskeletal: back pain Neurological: No: Weakness, Numbness, Change in speech, Confusion Objective Exam Vital Signs Date Time Temp Pulse Resp B/P (MAP) Pulse Ox O2 Delivery O2 Flow Rate FiO2 05/23/18 09:00 97 Room Air 05/23/18 00:00 97.9 101 16 128/59 (82) 97 Room Air 05/22/18 21:50 101.0 05/22/18 21:50 101.0 05/22/18 21:00 Room Air 05/22/18 20:45 102.2 05/22/18 20:00 99.4 93 18 141/66 (91) 98 Room Air 05/22/18 16:00 98.4 88 18 121/58 (79) 100 Room Air I & O 05/23/18 06:59 Intake Total 4190 ml Output Total 2285 ml Balance 1905 ml Capillary Refill : General Appearance: Mild Distress Respiratory: No Accessory Muscle Use, No Respiratory Distress Gastrointestinal: soft, other (umbilical wound s/p laparotomy) Extremity: Normal Inspection, Normal Range of Motion, Non Tender, No Calf Tenderness, No Pedal Edema Skin: Normal Color, Warm/Dry Results Lab Laboratory Tests 05/22/18 17:09: Glucometer 201H 05/22/18 20:30: Glucometer 181H 05/23/18 05:37: Glucometer 183H 05/23/18 10:47: Glucometer 209H Microbiology 05/21/18 MRSA Screen - Final, Complete MRSA not isolated Assessment/Plan Assessment/Plan Assess & Plan/Chief Complaint assessment; pod #2 s/p lumbar decompression and fusion plan drain off suction back brace when OOB Pt IS at bedside and encouraged anticipate d/c home tomorrow Clinical Quality Measures DVT/VTE Risk/Contraindication: Risk Factor Score Per Nursin RFS Level Per Nursing on Admit: 3=High PAO BRANCH May 23, 2018 12:47
[2018-05-23] MEDS ORDERED: OXYC1TAB87 PO (12:48)
[2018-05-23] MEDS ORDERED: MAGNESIUM CITRATE 300 ML BTL PO NR (13:00)
[2018-05-23] MEDS ORDERED: BISACODYL 5 MG (DULCOLAX) TABLET PO PRN (13:00)
--- NOTE | 2018-05-23 13:19 | NUR ---
CM/SS spoke with the patient regarding discharge planning. Patient feels would need a FWW and asked about HHC at discharge. Discussed could get a FWW prior to discharge and it would be up to the dr and how she was doing about HHC for PT or RNing. Will continue to follow.
--- NOTE | 2018-05-23 15:53 | NUR ---
PATIENT DRANK A VERY SMALL AMOUNT OF HER MAG CITRATE AND THEN CALLED THIS RN TO TAKE THE BOTTLE FROM HER ROOM AND REFUSED TO DRINK ANYMORE. THIS RN WILL CONT. TO MONITOR THIS PATIENT.
[2018-05-23 16:00] VITALS: BP 107/65
[2018-05-23] MEDS: fentaNYL INJECTION 100 MCG/2 ML AMP IVP PRN ×2 (16:02→21:44)
[2018-05-23] MEDS: LITHIUM CARBONATE 300 MG TABLET PO SCH (21:42)
[2018-05-23] MEDS: DIAZEPAM 5 MG (VALIUM) TABLET PO PRN (21:42)
[2018-05-24 00:51] VITALS: BP 124/59
[2018-05-24] MEDS: oxyCODONE/APAP 5/325MG (PERCOCET 5) TABLET PO PRN ×3 (01:59→09:18)
[2018-05-24] MEDS: inSUlin ASPART (NovoLOG) 1 UNIT/0.01 ML (CHARGE PER UNIT) SC SCH (05:04)
[2018-05-24 08:05] VITALS: BP 131/66
[2018-05-24] MEDS ORDERED: WALK1EAC23 MC (08:55)
--- NOTE | 2018-05-24 08:57 | Discharge Inst-Simple/Standard ---
Discharge Inst-Standard Discharge Medications New, Converted or Re-Newed RX: RX on Chart Patient Instructions/Follow Up Plan of Care/Instructions/FU: dont bend lift twist push pull 5lb weight restriction keep incision covered clean and dry follow up in clinic in 2 weeks Activity as Tolerated: No Discharge Diet: No Restrictions [facility] For: fever chills shortness of breath chest pain new onset lower extrimity weakness PAO BRANCH May 24, 2018 08:57
[2018-05-24] MEDS: FAMOTIDINE 20 MG (PEPCID) TABLET PO SCH (09:18)
[2018-05-24] MEDS: amLODIPine 5 MG (NORVASC) TAB PO SCH (09:18)
[2018-05-24] MEDS: DOCUSATE SODIUM 100 MG (COLACE) CAP PO SCH (09:18)
[2018-05-24] MEDS: LINAGLIPTIN (TRADJENTA) 5 MG TABLET PO SCH (09:18)
--- NOTE | 2018-05-24 09:28 | NUR ---
CM/SS sent [facility] order for the FWW. They will deliver this day. Choice form is in patient chart.
== END 2018-05-24 10:34 | disposition home or self-care (01) | DRG 460 ==
LOC: SDC 12:14 → 4TH 18:48
PROVIDERS: ADMIT Orthopaedic Surgery; ATTEND Orthopaedic Surgery
PROC: 0SG0071 Fusion of Lumbar Vertebral Joint with Autologous Tissue Substitute, Posterior Approach, Posterior Column, Open Approach (ICD-10-PCS; principal; 2018-05-21 14:44)
DX: M48.062 Spinal stenosis, lumbar region with neurogenic claudication (principal); M51.16 Intervertebral disc disorders with radiculopathy, lumbar region; Q07.9 Congenital malformation of nervous system, unspecified; E66.01 Morbid (severe) obesity due to excess calories; Z68.41 Body mass index [BMI] 40.0-44.9, adult; I10 Essential (primary) hypertension; E11.42 Type 2 diabetes mellitus with diabetic polyneuropathy; J45.909 Unspecified asthma, uncomplicated; G43.909 Migraine, unspecified, not intractable, without status migrainosus; M79.7 Fibromyalgia; F41.9 Anxiety disorder, unspecified; F31.9 Bipolar disorder, unspecified; K21.9 Gastro-esophageal reflux disease without esophagitis; K59.00 Constipation, unspecified; Z86.711 Personal history of pulmonary embolism; Z87.442 Personal history of urinary calculi
CPT/HCPCS: 36415; 72100; 80053; 82962; 84703; 85027; 86850; 86900; 86901; 87081; 94664

== ENCOUNTER 2018-05-27 19:47 | Emergency (ER) | payer MEDICARE, MEDICAID ==
[~2018-05-27] VITALS: Ht 162.6 cm; Wt 115.7 kg
[~2018-05-27 19:47] MED LIST changes: +OXYC1TAB87 PO; +WALK1EAC23 MC
--- OUTSIDE RECORDS SUMMARY | 2018-05-27 19:53 | XMS REPORT | Clinical Summary ---
Author Author [facility] Organization [facility] Address Unknown Phone Unavailable Care Team Providers Care Automobile Wrecker Name Role Phone PP Unavailable Allergies Comments [...] Varicella Vaccines (1 of 2001 2 - 13+ 2-dose series) DTaP,Tdap,and Td Vaccines 10/29/2007 (1 - Tdap) CERVICAL CANCER SCREENING 2009 Diabetic A1C Due 09/21/2016 03/24/2016, 04/28/2012, 12/08/2010 Influenza Vaccine (#1) 2017 Results Not on filefrom Last 3 Months Insurance Type Payer Benefit Subscriber ID Effective Phone Address Plan / Dates Group Medicare MEDICARE MEDICARE xxxxxxxxxx 2012-P [phone] [address] [place] [address] [employer] KANCARE 19 xxxxxxxxxxx 2006 [address] [address] [place] [address] ([place]) [place] [address] Advance Directives For more information, please contact: [address] [address] Date Inactivated Comments Code Status Date Activated Full Code 12/21/2016 8:28 AM 12/21/2016 8:28 AM Full Code 12/18/2016 4:52 PM 03/26/2016 5:07 PM Full Code 03/23/2016 11:18 PM 11/28/2012 3:00 PM Full Code 11/26/2012 9:02 PM 11/16/2012 1:25 PM Full Code 11/13/2012 2:08 AM
--- OUTSIDE RECORDS SUMMARY | 2018-05-27 19:53 | XMS REPORT | Clinical Summary ---
Author Author [facility] Organization [facility] Address Unknown Phone Unavailable Care Team Providers Care Home Theatre Technician Name Role Phone Ilya Scales MD Unavailable [...] in the Health Information Management department at [phone] for further assistance in locating additional records.[facility] Allergies Comments Active Allergy Reactions Severity Noted [...] disc disease, lumbar 08/22/2012 Overview: 1. Sees [facility] Neurosurgery; anesthesia pain clinic: Other chronic pain. 2. Lumbar displaced disk. 3. Lower extremity sciatica. epidural spine injections, PT ( is attending in [place], doing exercises), and TENS unit celebrex 200mg qday never had a surgery Hx of oxycodone (most helpful) and oxycontin, [facility] IR 15-30 in [place], [place] I have discouraged her from using [...] disorder, depressed Overview: Dr. Niharika Velasquez in [place], [place] DVT (deep venous thrombosis) Overview: 1 PICC associated; left leg and right thigh Sees hematology in [place], [place] Currently lifelong anticoagulation, goal INR 2-3 Anxiety disorder Overview: Dr. Niharika Velasquez in [place], [place] Irritable bowel disease Hypertension Sciatica Disc [...] on file. For more information, please contact: [facility] [address] [place] [address]
--- OUTSIDE RECORDS SUMMARY | 2018-05-27 19:56 | XMS REPORT | Continuity of Care Document ---
Author Author [facility] Address Unknown Phone Unavailable Allergies Active Description [...] ARCHULETA DO, VANNA K 278.00 OBESITY 02/24/2011 ARCHULEAT DO, VANNA K 338.29 CHRONIC PAIN 02/24/2011 [...] 311 Mo Depress Nos 04/27/2011 ARCHULETA DO, AVNNA K 314.00 ADHD INATTENTIVE 04/27/2011 ARCHULETA DO, [...] VANNA K 311 Mo Depress Nos 04/27/2011 KATHE WHITE, VANNA K 314.00 ADHD INATTENTIVE 04/27/2011 [...] VANNA K 296.80 BIPOLAR DISORDER UNSPECIFIED 07/18/2011 RACHULETA DO VANNA K 296.80 BIPOLAR DISORDER UNSPECIFIED [...] VANNA K 729.5 Pain In Limb 09/07/2011 ACRHULETA DO, VANNA K 729.5 Pain In Limb [...] ARCHULETA DOA K 493.90 ASTHMA UNSPECIFIED 11/01/2011 QUOC ARCHULETA DOA [...] 782.0 DISTURBANCE OF SKIN SENSATION 02/21/2012 ЕКАТЕРИНА ZAAVLA MD 783.1 Abnormal Weight Gain 02/21/2012 ЕКАТЕРИНА [...] UNSPECIFIED HYPERKINETIC SYNDROME OF CHILDHOOD 03/13/2012 ЕКАТЕРИНА ZAVAAL MD 314.9 UNSPECIFIED HYPERKINETIC SYNDROME OF CHILDHOOD [...] 08/16/2012 791.0 MICROALBUMINURIA 08/16/2012 791.0 MICROALBUMINURIA 08/16/2012 ЕКАТЕРИНА ZAVALA MD 791.0 MICROALBUMINURIA 08/16/2012 ЕКАТЕРИНА ZAVALA [...] Procedures Code [place] [address] SPIROMETRY 03/07/2012 29393 BRONCHODILATION PRE/POST 03/07/2012 02667 RESPIRATORY FLOW VOLUME LOOP 03/07/2012 77288 PSYCHO TESTING 1 HR W/DR 03/15/2012 81968 INR (IN HOUSE) 03/15/2012 43970 URINE DRUG SCREEN (IN-HOUSE ) 03/15/2012 41844 INR (IN HOUSE) 04/13/2012 55644 THERAPUTIC INJ SQ/IM 04/23/2012 J1100 DEXAMETHASONE SODIUM PHOS, 1 MG 04/23/2012 J3420 B12 VITAMIN INJECTION 04/23/2012 60128 INR (IN HOUSE) 04/23/2012 54143 CMP 04/23/2012 50745 INR (IN HOUSE) 04/23/2012 04205 INR (IN HOUSE) 05/18/2012 75659 ROUTINE VENIPUNCTURE 05/21/2012 21531 MICRO ALBUMIN-IN HOUSE 05/21/2012 98762 A1C (IN-HOUSE) 05/21/2012 61309 LIPID PANEL 05/21/2012 96581 PT/INR 05/22/2012 02853 VITAMIN D 25-HYDROXY (D2,D3 , TOTAL) 05/22/2012 72365 PT/INR 05/22/2012 06738 ROUTINE VENIPUNCTURE 06/07/2012 43253 FSH 06/07/2012 78446 LH 06/07/2012 51607 PROLACTIN 06/07/2012 03427 TESTOSTERONE-WOMEN & CHILDREN 06/07/2012 28681 TSH 06/07/2012 16643 US PELVIC COMPL (REFLEX CPT - 39524) 06/18/2012 70464 URINE DRUG SCREEN (IN-HOUSE ) 06/18/2012 NEURO Adonay Murphyra 06/26/2012 75039 INR (IN HOUSE) 06/27/2012 11882 URINE DRUG SCREEN (IN-HOUSE ) 07/16/2012 82326 MRI BRAIN W/O & W/DYE 07/16/2012 Medical O [facility] 07/25/2012 83936 ROUTINE VENIPUNCTURE 08/16/2012 95711 ROUTINE VENIPUNCTURE 08/16/2012 17323 A1C (IN-HOUSE) 08/16/2012 08486 A1C (IN-HOUSE) 08/16/2012 58294 URINE DRUG SCREEN (IN-HOUSE ) 08/16/2012 75425 MICRO ALBUMIN-IN HOUSE 08/16/2012 34414 URINE DRUG SCREEN (IN-HOUSE ) 08/16/2012 02888 MICRO ALBUMIN-IN HOUSE 08/16/2012 84187 CMP 08/16/2012 45348 CMP 08/16/2012 [id number] GFR CALC (RESULT ONLY) 08/16/2012 [id number] GFR CALC (RESULT ONLY) 08/16/2012 90742 MICROALBUMIN 08/16/2012 60534 PTH (intact) 08/16/2012 Physical Physical Therapy, [facility] 08/16/2012 28665 MICROALBUMIN 08/16/2012 86632 ROUTINE VENIPUNCTURE 08/17/2012 72225 DRUG BLOOD SCREEN 08/17/2012 97474 PT/INR 08/17/2012 8226996 CALCIUM (RESULT ONLY) 08/17/2012 4526325 PTH INTACT [facility] (RESULT ONLY) 08/17/2012 39745 PTH (intact) 08/20/2012 Physical Physical Therapy, [facility] 08/20/2012 15422 UA W/ CULTURE IF INDICATED 08/23/2012 27076 CULTURE URINE 09/13/2012 J3420 B12 VITAMIN INJECTION 09/26/2012 16909 INR (IN HOUSE) 10/10/2012 33994 INR (IN HOUSE) 01/16/2013 90281 CMP 01/17/2013 48344 H PYLORI (IN-HOUSE) 01/17/2013 80854 LIPASE 01/17/2013 11638 CBC 01/17/2013 Results There is no data. Encounters ACCT No. Visit Date/Time Discharge Status Pt. Type Provider Facility Loc./Unit Complaint [id number] 03/08/2013 10:20:00 03/08/2013 23:59:59 CLS Outpatient VANNA ARCHULETA DO [id number] 01/16/2013 13:26:00 01/16/2013 23:59:59 CLS Outpatient ЕКАТЕРИНА ZAVALA MD [id number] 01/16/2013 13:26:00 01/16/2013 23:59:59 CLS Outpatient ЕКАТЕРИНА ZAVALA MD [id number] 07/16/2012 10:48:00 07/16/2012 23:59:59 CLS Outpatient VANNA ARCHULETA DO [id number] 06/18/2012 10:08:00 06/18/2012 23:59:59 CLS Outpatient VANNA ARCHULETA DO [id number] 06/07/2012 10:44:00 06/07/2012 23:59:59 CLS Outpatient VANNA ARCHULETA DO [id number] 05/31/2012 15:00:00 05/31/2012 23:59:59 CLS Outpatient [id number] 05/21/2012 10:23:00 05/21/2012 23:59:59 CLS Outpatient VANNA ARCHULETA DO [id number] 04/23/2012 10:36:00 04/23/2012 23:59:59 CLS Outpatient VANNA ARCHULETA DO [id number] 04/13/2012 09:58:00 04/13/2012 23:59:59 CLS Outpatient [id number] 03/15/2012 09:16:00 03/15/2012 23:59:59 CLS Outpatient [id number] 02/24/2012 16:03:00 02/24/2012 23:59:59 CLS Outpatient VANNA ARCHULETA DO [id number] 11/07/2012 08:24:00 Document Registration [id number] 10/10/2012 09:26:00 Document Registration [id number] 09/26/2012 16:35:00 Document Registration [id number] 09/13/2012 08:08:00 Document Registration [id number] 08/17/2012 08:38:00 Document Registration [id number] 08/16/2012 08:48:00 Document Registration [id number] 08/16/2012 08:48:00 Document Registration
[2018-05-27 20:00] VITALS: BP 158/96
[2018-05-27 20:13] LABS: BASOPHILS % (AUTO) 0 % (0-10); EOSINOPHILS # (AUTO) 0.6 10^3/uL (0.0-0.3); EOSINOPHILS % (AUTO) 6 % (0-10); HEMATOCRIT 35 % (35-52); HEMOGLOBIN 11.4 G/DL (11.5-16.0); LYMPHOCYTES # (AUTO) 2.8 X 10^3 (1.0-4.0); LYMPHOCYTES % (AUTO) 29 % (12-44); MEAN CORPUSCULAR HEMOGLOBIN 28 PG (25-34); MEAN CORPUSCULAR HGB CONC 33 G/DL (32-36); MEAN CORPUSCULAR VOLUME 84 FL (80-99); MEAN PLATELET VOLUME 10.8 FL (7.4-10.4); MONOCYTES # (AUTO) 0.7 X 10^3 (0.0-1.0); MONOCYTES % (AUTO) 8 % (0-12); NEUTROPHILS # (AUTO) 5.5 X 10^3 (1.8-7.8); NEUTROPHILS % (AUTO) 57 % (42-75); PLATELET COUNT 290 10^3/uL (130-400); RED CELL DISTRIBUTION WIDTH 13.3 % (10.0-14.5); WHITE BLOOD COUNT 9.5 10^3/uL (4.3-11.0)
[2018-05-27 20:26] LABS: INR 0.9 (0.8-1.4); PROTHROMBIN TIME PATIENT 12.6 SEC (12.2-14.7)
[2018-05-27 20:37] LABS: BILIRUBIN,URINE NEGATIVE (NEGATIVE); CLARITY,URINE CLEAR; COLOR,URINE YELLOW; GLUCOSE, URINE (UA) 2+ (NEGATIVE); KETONES,URINE NEGATIVE (NEGATIVE); LEUKOCYTE ESTERASE ,URINE 3+ (NEGATIVE); NITRITE,URINE NEGATIVE (NEGATIVE); PH,URINE 6.5 (5-9); PROTEIN,URINE 1+ (NEGATIVE); UROBILINOGEN,URINE NORMAL (NORMAL)
[2018-05-27 20:43] LABS: ALANINE AMINOTRANSFERASE 24 U/L (0-55); ALBUMIN 3.9 GM/DL (3.2-4.5); ALKALINE PHOSPHATASE 78 U/L (40-136); BILIRUBIN,TOTAL 0.2 MG/DL (0.1-1.0); BUN/CREATININE RATIO 10; CALCIUM 9.4 MG/DL (8.5-10.1); CARBON DIOXIDE 24 MMOL/L (21-32); CHLORIDE 104 MMOL/L (98-107); CREATININE SERUM 0.79 MG/DL (0.60-1.30); GFR ESTIMATED > 60; GLUCOSE 187 MG/DL (70-105); SODIUM 138 MMOL/L (135-145); TOTAL PROTEIN 7.3 GM/DL (6.4-8.2)
[2018-05-27 20:47] LABS: BACTERIA,URINE TRACE /HPF; WBC,URINE 0-2 /HPF
[2018-05-27 20:48] LABS: YEAST,URINE RARE /HPF
--- NOTE | 2018-05-27 20:50 | NUR ---
Report was given to Ana at this time. Care was transferred.
--- NOTE | 2018-05-27 21:29 | Diagnostic Imaging Report ---
INDICATION: Chest pain PA and lateral chest Heart size and pulmonary vascularity are normal. Lungs are clear. There are no effusions or pneumothoraces. IMPRESSION: Negative chest Dictated by: Dictated on workstation # [id number]
[2018-05-27] MEDS ORDERED: fentaNYL INJECTION 100 MCG/2 ML AMP IVP STA (22:03)
[2018-05-27] MEDS ORDERED: RX-TRIMETH/SULFA. 160-800 MG (BACTRIM DS) TAB PPK#2 PO STA (22:03)
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
[2018-05-27] MEDS ORDERED: VANCOMYCIN INJECTION 1,000 MG in NS (IVPB) 250 ML IV ONE (22:15)
[2018-05-27] MEDS ORDERED: TRIM/SULFAMETH 160/800 (SEPTRA DS) TAB PO ONE (22:15)
[2018-05-27] MEDS ORDERED: ONDANSETRON 4 MG/2 ML (SDV) Z0FRAN IVP ONE (23:15)
[2018-05-28 00:18] VITALS: BP 156/93
== END 2018-05-28 00:19 | disposition home or self-care (01) ==
LOC: EDUNIT# 19:47 → ER 19:49
DX: T81.40XA Infection following a procedure, unspecified, initial encounter (principal); J45.909 Unspecified asthma, uncomplicated; I10 Essential (primary) hypertension; G43.909 Migraine, unspecified, not intractable, without status migrainosus; K58.9 Irritable bowel syndrome, unspecified; E11.9 Type 2 diabetes mellitus without complications; E66.01 Morbid (severe) obesity due to excess calories; F41.9 Anxiety disorder, unspecified; F31.9 Bipolar disorder, unspecified; Z68.41 Body mass index [BMI] 40.0-44.9, adult; Z87.19 Personal history of other diseases of the digestive system; Z87.440 Personal history of urinary (tract) infections; Z87.448 Personal history of other diseases of urinary system; Z86.718 Personal history of other venous thrombosis and embolism; Z98.1 Arthrodesis status; Z88.8 Allergy status to other drugs, medicaments and biological substances; Z88.6 Allergy status to analgesic agent; Z98.890 Other specified postprocedural states; Z90.49 Acquired absence of other specified parts of digestive tract; Z98.51 Tubal ligation status; Z86.711 Personal history of pulmonary embolism
CPT/HCPCS: 36415; 71046; 80053; 81000; 83605; 85025; 85610; 85730; 87040; 87070; 87088; 87205; 87804; 93041; 96374; 96375

== ENCOUNTER 2018-06-10 19:20 | Emergency (ER) | payer MEDICARE, MEDICAID ==
[~2018-06-10] VITALS: Ht 162.6 cm; Wt 115.7 kg
--- OUTSIDE RECORDS SUMMARY | 2018-06-10 19:25 | XMS REPORT | Clinical Summary ---
Author Author [facility] Organization [facility] Address Unknown Phone Unavailable Care Team Providers Care Vibration Analyst Name Role Phone PP Unavailable Allergies Comments [...] Dates Group Medicare MEDICARE MEDICARE xxxxxxxxxx 2012-P [phone] [address] [place] [address] [employer] KANCARE 19 xxxxxxxxxxx 2006 [address] [address] [place] [address] ([place]) [place] [address] Advance Directives For more information, please contact: [address] [address] Date Inactivated Comments Code Status Date Activated Full Code 12/21/2016 8:28 AM 12/21/2016 8:28 AM Full Code 12/18/2016 4:52 PM 03/26/2016 5:07 PM Full Code 03/23/2016 11:18 PM 11/28/2012 3:00 PM Full Code 11/26/2012 9:02 PM 11/16/2012 1:25 PM Full Code 11/13/2012 2:08 AM
--- OUTSIDE RECORDS SUMMARY | 2018-06-10 19:25 | XMS REPORT | Clinical Summary ---
Author Author [facility] Organization [facility] Address Unknown Phone Unavailable Care Team Providers Care Commercial Front Load Operator Name Role Phone Ilya Scales MD Unavailable [...] in the Health Information Management department at [phone] for further assistance in locating additional records.[facility] Allergies Comments Active Allergy Reactions Severity [...] disc disease, lumbar 08/22/2012 Overview: 1. Sees [facility] Neurosurgery; anesthesia pain clinic: Other chronic pain. 2. Lumbar displaced disk. 3. Lower extremity sciatica. epidural spine injections, PT ( is attending in [place], doing exercises), and TENS unit celebrex 200mg qday never had a surgery Hx of oxycodone (most helpful) and oxycontin, [place] IR 15-30 in [place], [place] I have discouraged her from using [...] disorder, depressed Overview: Dr. Niharika Velasquez in [place], [place] DVT (deep venous thrombosis) Overview: 1 PICC associated; left leg and right thigh Sees hematology in [place], [place] Currently lifelong anticoagulation, goal INR 2-3 Anxiety disorder Overview: Dr. Niharika Velasquez in [place], [place] Irritable bowel disease Hypertension Sciatica Disc [...] on file. For more information, please contact: [facility] [address] [place] [address]
--- OUTSIDE RECORDS SUMMARY | 2018-06-10 19:28 | XMS REPORT | Continuity of Care Document ---
Author Author [facility] Address Unknown Phone Unavailable Allergies Active Description [...] Abnormal Lft (liver Function Test) 02/27/2011 VANNA ARHCULETA DO 790.6 Abnormal Lft (liver Function Test) [...] ARCHULETA DO, VANNA K 784.0 Headache 04/19/2011 ARCHULEAT DO, VANNA K 786.59 Other Chest Pain [...] 692.9 Dermatitis Contact Unspecified 07/19/2011 ARCHULETA DO, AVNNA K 112.0 Candidiasis Of Mouth 07/19/2011 ARCHULETA [...] DOA K 599.0 Urinary Tract Infection 10/21/2011 QUCO ARCHULETA DOA K 719.45 Pain In Joint [...] K 466.0 Bronchitis, Acute 02/01/2012 ARCHULETA DO, VNANA K 493.92 Asthma (acute) Exacerbation 02/01/2012 ARCHULETA [...] Procedures Code [place] [address] SPIROMETRY 03/07/2012 78068 BRONCHODILATION PRE/POST 03/07/2012 07506 RESPIRATORY FLOW VOLUME LOOP 03/07/2012 81739 PSYCHO TESTING 1 HR W/DR 03/15/2012 90671 INR (IN HOUSE) 03/15/2012 01753 URINE DRUG SCREEN (IN-HOUSE ) 03/15/2012 72651 INR (IN HOUSE) 04/13/2012 90710 THERAPUTIC INJ SQ/IM 04/23/2012 J1100 DEXAMETHASONE SODIUM PHOS, 1 MG 04/23/2012 J3420 B12 VITAMIN INJECTION 04/23/2012 73451 INR (IN HOUSE) 04/23/2012 13647 CMP 04/23/2012 23109 INR (IN HOUSE) 04/23/2012 33051 INR (IN HOUSE) 05/18/2012 09409 ROUTINE VENIPUNCTURE 05/21/2012 28743 MICRO ALBUMIN-IN HOUSE 05/21/2012 12930 A1C (IN-HOUSE) 05/21/2012 35302 LIPID PANEL 05/21/2012 96261 PT/INR 05/22/2012 54662 VITAMIN D 25-HYDROXY (D2,D3 , TOTAL) 05/22/2012 67182 PT/INR 05/22/2012 76598 ROUTINE VENIPUNCTURE 06/07/2012 14370 FSH 06/07/2012 05586 LH 06/07/2012 09458 PROLACTIN 06/07/2012 47583 TESTOSTERONE-WOMEN & CHILDREN 06/07/2012 45863 TSH 06/07/2012 01541 US PELVIC COMPL (REFLEX CPT - 78652) 06/18/2012 33798 URINE DRUG SCREEN (IN-HOUSE ) 06/18/2012 NEURO Adonay Murphyra 06/26/2012 91547 INR (IN HOUSE) 06/27/2012 32396 URINE DRUG SCREEN (IN-HOUSE ) 07/16/2012 24080 MRI BRAIN W/O & W/DYE 07/16/2012 Medical O [facility] 07/25/2012 00675 ROUTINE VENIPUNCTURE 08/16/2012 40110 ROUTINE VENIPUNCTURE 08/16/2012 98528 A1C (IN-HOUSE) 08/16/2012 29342 A1C (IN-HOUSE) 08/16/2012 37262 URINE DRUG SCREEN (IN-HOUSE ) 08/16/2012 53185 MICRO ALBUMIN-IN HOUSE 08/16/2012 51993 URINE DRUG SCREEN (IN-HOUSE ) 08/16/2012 26926 MICRO ALBUMIN-IN HOUSE 08/16/2012 98740 CMP 08/16/2012 94979 CMP 08/16/2012 3504224 GFR CALC (RESULT ONLY) 08/16/2012 1225291 GFR CALC (RESULT ONLY) 08/16/2012 35566 MICROALBUMIN 08/16/2012 26682 PTH (intact) 08/16/2012 Physical Physical Therapy, [facility] 08/16/2012 90100 MICROALBUMIN 08/16/2012 06544 ROUTINE VENIPUNCTURE 08/17/2012 18155 DRUG BLOOD SCREEN 08/17/2012 96528 PT/INR 08/17/2012 3071591 CALCIUM (RESULT ONLY) 08/17/2012 4866760 PTH INTACT LIBERTY (RESULT ONLY) 08/17/2012 90878 PTH (intact) 08/20/2012 Physical Physical Therapy, Via [facility] 08/20/2012 46243 UA W/ CULTURE IF INDICATED 08/23/2012 81614 CULTURE URINE 09/13/2012 J3420 B12 VITAMIN INJECTION 09/26/2012 90907 INR (IN HOUSE) 10/10/2012 93419 INR (IN HOUSE) 01/16/2013 60094 CMP 01/17/2013 25057 H PYLORI (IN-HOUSE) 01/17/2013 94384 LIPASE 01/17/2013 74515 CBC 01/17/2013 Results There is no data. Encounters ACCT No. Visit Date/Time Discharge Status Pt. Type Provider Facility Loc./Unit Complaint [id number] 03/08/2013 10:20:00 03/08/2013 23:59:59 CLS Outpatient VANNA ARCHULETA DO [id number] 01/16/2013 13:26:00 01/16/2013 23:59:59 CLS Outpatient ЕКАТЕРИНА ZAVALA MD [id number] 01/16/2013 13:26:00 01/16/2013 23:59:59 CLS Outpatient ЕКАТЕРИНА ZAVALA MD [id number] 07/16/2012 10:48:00 07/16/2012 23:59:59 CLS Outpatient VANNA ARCHULETA DO [id number] 06/18/2012 10:08:00 06/18/2012 23:59:59 CLS Outpatient VANNA ARCHULETA DO [id number] 06/07/2012 10:44:00 06/07/2012 23:59:59 CLS Outpatient VANNA ARCHULETA DO [id number] 05/31/2012 15:00:00 05/31/2012 23:59:59 CLS Outpatient [id number] 05/21/2012 10:23:00 05/21/2012 23:59:59 CLS Outpatient VANNA ARCHULETA DO [id number] 04/23/2012 10:36:00 04/23/2012 23:59:59 CLS Outpatient VANNA ARCHULETA DO [id number] 04/13/2012 09:58:00 04/13/2012 23:59:59 CLS Outpatient [id number] 03/15/2012 09:16:00 03/15/2012 23:59:59 CLS Outpatient [id number] 02/24/2012 16:03:00 02/24/2012 23:59:59 CLS Outpatient VANNA ARCHULETA DO [id number] 11/07/2012 08:24:00 Document Registration [id number] 10/10/2012 09:26:00 Document Registration [id number] 09/26/2012 16:35:00 Document Registration [id number] 09/13/2012 08:08:00 Document Registration [id number] 08/17/2012 08:38:00 Document Registration [id number] 08/16/2012 08:48:00 Document Registration [id number] 08/16/2012 08:48:00 Document Registration
[2018-06-10] MEDS ORDERED: KETOROLAC 60 MG/2 ML VIAL IM ONE (20:00)
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
--- NOTE | 2018-06-10 20:33 | Diagnostic Imaging Report ---
PROCEDURE: CT lumbar spine without contrast. TECHNIQUE: Multiple contiguous axial images were obtained through the lumbar spine without the use of intravenous contrast. Sagittal and coronal reformations were then performed. DATE: June 10, 2018. INDICATION: 27-year-old female, fall three weeks ago and fall again on June 08, 2018. Low back pain progressively increasing. COMPARISON: Lumbar spine radiographs, May 22, 2018. FINDINGS: There is posterior spinal fusion hardware spanning L4-L5 with hardware noted on the right. There is evidence of prior screw removal on the left at the level of L4 and L5. There is severe disc height loss at L4-L5. There are likely postoperative related osseous changes also at the level of L4-L5. There is some deformity of the L4 and L5 vertebral bodies which may be congenitally related. There are multiple thoracolumbar Schmorl's nodes. There is a protuberance of the superior endplate of L1 as well as is irregularity of contour of the superior endplate of L3. There is moderate disc height loss at L5-S1. There is mild disc height loss at L1-L2 with mild endplate degenerative related changes. There also are mild degenerative related changes adjacent to the L5-S1 disc space there is a suspected posterior disc protrusion at L5-S1 with estimated moderate right foraminal narrowing at this level. CT is limited for assessment of disc pathology and non-bony causes of foraminal and spinal stenosis. The sacroiliac joints are normally aligned. There are no prominent sacroiliac degenerative changes. There is a 3 mm nonobstructing right renal stone. The patient is status post cholecystectomy. IMPRESSION: 1. Posterior spinal fusion hardware spanning L4-L5 on the right with evidence of removal of prior hardware on the left at L4 and L5. There are likely postoperative related osseous changes at this level as well. There are deformities of the L4-L5 vertebral bodies which potentially could be congenitally related. 2. No identified acute fracture of the lumbar spine. 3. L5-S1 suspected posterior disc protrusion and moderate right foraminal narrowing, as above. Dictated by: Dictated on workstation # [id number]
[2018-06-10 20:45] VITALS: BP 136/84
== END 2018-06-10 20:47 | disposition home or self-care (01) ==
LOC: EDUNIT# 19:20 → ER 19:22
DX: S39.012A Strain of muscle, fascia and tendon of lower back, initial encounter (principal); J45.909 Unspecified asthma, uncomplicated; I10 Essential (primary) hypertension; G43.909 Migraine, unspecified, not intractable, without status migrainosus; K58.9 Irritable bowel syndrome, unspecified; M41.9 Scoliosis, unspecified; E66.01 Morbid (severe) obesity due to excess calories; E11.9 Type 2 diabetes mellitus without complications; F41.9 Anxiety disorder, unspecified; F31.9 Bipolar disorder, unspecified; Z87.19 Personal history of other diseases of the digestive system; Z87.442 Personal history of urinary calculi; Z87.448 Personal history of other diseases of urinary system; Z86.718 Personal history of other venous thrombosis and embolism; Z98.1 Arthrodesis status; Z68.41 Body mass index [BMI] 40.0-44.9, adult; Z88.6 Allergy status to analgesic agent; Z88.8 Allergy status to other drugs, medicaments and biological substances; Z87.891 Personal history of nicotine dependence; Z90.49 Acquired absence of other specified parts of digestive tract; Z98.890 Other specified postprocedural states; Z98.51 Tubal ligation status; Z86.711 Personal history of pulmonary embolism; W19.XXXA Unspecified fall, initial encounter
CPT/HCPCS: 72131; 87070; 87205

== ENCOUNTER 2018-07-17 11:14 | Emergency (ER) | payer MEDICARE, MEDICAID ==
[~2018-07-17] VITALS: Ht 162.6 cm; Wt 112.9 kg
--- OUTSIDE RECORDS SUMMARY | 2018-07-17 11:21 | XMS REPORT | Clinical Summary ---
Author Author [facility] Organization [facility] Address Unknown Phone Unavailable Care Team Providers Care Reinstatement Clerk Name Role Phone Ilya Scales MD Unavailable [...] in the Health Information Management department at [phone] for further assistance in locating additional records.[facility] Allergies Comments Active Allergy Reactions Severity Noted [...] disc disease, lumbar 08/22/2012 Overview: 1. Sees [facility] Neurosurgery; anesthesia pain clinic: Other chronic pain. 2. Lumbar displaced disk. 3. Lower extremity sciatica. epidural spine injections, PT ( is attending in [place], doing exercises), and TENS unit celebrex 200mg qday never had a surgery Hx of oxycodone (most helpful) and oxycontin, [facility] IR 15-30 in [place], [place] I have discouraged her from using [...] disorder, depressed Overview: Dr. Niharika Velasquez in [place], [place] DVT (deep venous thrombosis) Overview: 1 PICC associated; left leg and right thigh Sees hematology in [place], [place] Currently lifelong anticoagulation, goal INR 2-3 Anxiety disorder Overview: Dr. Niharika Velasquez in [place], [place] Irritable bowel disease Hypertension Sciatica Disc [...] on file. For more information, please contact: [facility] [address] [place] [address]
--- OUTSIDE RECORDS SUMMARY | 2018-07-17 11:22 | XMS REPORT | Clinical Summary ---
Author Author [facility] Organization [facility] Address Unknown Phone Unavailable Care Team Providers Care Esthetic Dermatologist Name Role Phone PP Unavailable Allergies Comments [...] Dates Group Medicare MEDICARE MEDICARE xxxxxxxxxx 2012-P [phone] [address] [place] [address] [employer] KANCARE 19 xxxxxxxxxxx 2006 [address] [address] [place] [address] ([place]) [place] [address] Advance Directives For more information, please contact: [address] [address] Date Inactivated Comments Code Status Date Activated Full Code 12/21/2016 8:28 AM 12/21/2016 8:28 AM Full Code 12/18/2016 4:52 PM 03/26/2016 5:07 PM Full Code 03/23/2016 11:18 PM 11/28/2012 3:00 PM Full Code 11/26/2012 9:02 PM 11/16/2012 1:25 PM Full Code 11/13/2012 2:08 AM
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
[2018-07-17] MEDS ORDERED: KETOROLAC 60 MG/2 ML VIAL IM ONE (12:00)
[2018-07-17] MEDS ORDERED: PROMETHAZINE 25 MG (PHENERGAN) TAB PO ONE (12:00)
[2018-07-17 12:09] LABS: BILIRUBIN,URINE NEGATIVE (NEGATIVE); CLARITY,URINE CLOUDY; COLOR,URINE YELLOW; GLUCOSE, URINE (UA) NEGATIVE (NEGATIVE); KETONES,URINE NEGATIVE (NEGATIVE); LEUKOCYTE ESTERASE ,URINE NEGATIVE (NEGATIVE); NITRITE,URINE NEGATIVE (NEGATIVE); PROTEIN,URINE NEGATIVE (NEGATIVE); RBC,URINE >100 /HPF; UROBILINOGEN,URINE 0.2 MG/DL (NORMAL)
[2018-07-17 12:10] LABS: BACTERIA,URINE TRACE /HPF; SQUAMOUS EPITHELIAL CELL,UR 25-50 /HPF
--- NOTE | 2018-07-17 13:24 | Diagnostic Imaging Report ---
PROCEDURE: CT abdomen and pelvis without contrast. TECHNIQUE: Multiple contiguous axial images were obtained through the abdomen and pelvis without the use of intravenous contrast. INDICATION: Flank pain. COMPARISON: None. FINDINGS: Included portions of the lung bases show minimal atelectasis posteriorly on the left, but otherwise unremarkable. CT abdomen: Normal appendix cannot be adequately identified, but may be surgically absent. Small bowel loops are nondistended. Multiple punctate nonobstructive renal calculi are seen on the right. Although the ureters cannot be followed in their entirety, no calculi are seen along the expected course of either ureter. Additionally, there is no hydroureteronephrosis or other evidence of obstruction. No renal calculi are seen on the left. No focal renal masses are identified on this noncontrast exam. The adrenal glands, spleen, pancreas, and liver have an unremarkable noncontrast CT appearance. There is no loculated fluid collection, free fluid, nor free air within the abdomen. No abnormal mesenteric or retroperitoneal adenopathy is seen. Bony structures show postsurgical changes of lumbar spine fusion, but no acute osseous abnormalities are identified. CT pelvis: Urinary bladder is unopacified and minimally distended. No calculi are seen within the urinary bladder. There is no loculated fluid collection, free fluid, nor free air within the pelvis. No abnormal adenopathy is seen. Bony structures show no acute abnormalities. IMPRESSION: 1. Multiple punctate nonobstructive right renal calculi. 2. No ureteral calculi, hydroureteronephrosis, or other evidence of obstruction. Dictated by: Dictated on workstation # [id number]
[2018-07-17] MEDS ORDERED: NITR-65 PO (13:52)
[2018-07-17 14:00] VITALS: BP 148/87
== END 2018-07-17 14:00 | disposition home or self-care (01) ==
LOC: EDUNIT# 11:14 → ER FS 11:17
DX: N30.11 Interstitial cystitis (chronic) with hematuria (principal); M54.5 Low back pain; J45.909 Unspecified asthma, uncomplicated; I10 Essential (primary) hypertension; G43.909 Migraine, unspecified, not intractable, without status migrainosus; K58.9 Irritable bowel syndrome, unspecified; E66.01 Morbid (severe) obesity due to excess calories; E11.9 Type 2 diabetes mellitus without complications; F41.9 Anxiety disorder, unspecified; F31.9 Bipolar disorder, unspecified; Z87.19 Personal history of other diseases of the digestive system; Z87.442 Personal history of urinary calculi; Z87.440 Personal history of urinary (tract) infections; Z87.448 Personal history of other diseases of urinary system; Z86.718 Personal history of other venous thrombosis and embolism; Z88.6 Allergy status to analgesic agent; Z88.8 Allergy status to other drugs, medicaments and biological substances; Z98.1 Arthrodesis status; Z87.891 Personal history of nicotine dependence; Z90.49 Acquired absence of other specified parts of digestive tract; Z98.890 Other specified postprocedural states; Z98.51 Tubal ligation status; Z86.711 Personal history of pulmonary embolism
CPT/HCPCS: 74176; 81000; 84703; 96372

== ENCOUNTER → 2018-08-10 | Outpatient (CLI) | payer MEDICARE, MEDICAID ==
--- NOTE | 2018-08-10 15:02 | Diagnostic Imaging Report ---
CLINICAL INDICATION: Patient with enlarged thyroid. COMPARISONS: None. FINDINGS: THYROID NODULES: There is a 4 mm x 2 mm x 4 mm heterogeneous hypoechoic nodule involving the midportion of the right thyroid gland. There is no other thyroid gland nodule seen. THYROID GLAND: Besides the thyroid nodule, the thyroid gland has normal size, shape and echogenicity. The right lobe measures 5.2 cm x 1.9 cm x 1.9 cm and the left lobe measures 5.3 cm x 1.4 cm x 1.8 cm in their three dimensions. ISTHMUS: The isthmus is unremarkable and measures 5 mm in thickness. IMPRESSION: There is a 4 mm right thyroid gland nodule. Otherwise, unremarkable thyroid ultrasound exam. Dictated by: Dictated on workstation # [id number]
--- NOTE | 2018-08-10 15:13 | Diagnostic Imaging Report ---
US NON OB PELVIS COMP/TRANSVAG TECHNIQUE: Transabdominal and transvaginal grayscale, color Doppler and pulse duplex imaging of the pelvis was performed. INDICATION: Pelvic pain. COMPARISON: CT abdomen and pelvis from 07/17/2018. FINDINGS: The uterus measures 9.2 x 6.4 x 5.1 cm. The myometrium is normal in echogenicity without discrete mass. The endometrium measures up to 1.6 cm where visualized, and has homogeneous hyperechogenicity. The right ovary measures 2.4 x 2.9 x 1.9 cm. Both ovaries poorly visualized due to surrounding bowel gas. Right ovary has normal blood flow. No suspicious adnexal mass or fluid collection. No free pelvic fluid. IMPRESSION: 1. Thickened homogeneous endometrium is likely physiologic. Correlation with stage of menstrual cycle is applies. 2. Normal right ovary. 3. Left ovary is poorly visualized due to surrounding bowel gas. Dictated by: Dictated on workstation # [id number]
== END ==
LOC: RAD FS 13:02
PROVIDERS: ATTEND Pediatrics
DX: E04.1 Nontoxic single thyroid nodule (principal); R93.89 Abnormal findings on diagnostic imaging of other specified body structures; R10.2 Pelvic and perineal pain
CPT/HCPCS: 76536; 76830; 76856

== ENCOUNTER → 2018-08-20 | Outpatient (CLI) | payer MEDICARE, MEDICAID ==
--- NOTE | 2018-08-20 14:17 | Diagnostic Imaging Report ---
INDICATION: Low back pain, fall. TIME OF EXAM: 01:59 p.m. FINDINGS: Slight left convexity scoliosis is noted. Vertical stabilization naomi and pedicle screws transfix the right-sided lumbosacral spine. There appear to be laminectomy changes in the lower lumbar spine. Lumbar vertebrae demonstrate normal stature. No acute compression fracture is seen. There is some anterior wedging in the lower thoracic spine, perhaps a normal variant. There is generalized degenerative disc disease with variable disc space narrowing and marginal spurring. IMPRESSION: Lumbar spondylosis and postsurgical changes. No acute abnormality is detected. Dictated by: Dictated on workstation # [id number]
== END ==
LOC: RAD FS 13:42
PROVIDERS: ATTEND Family Medicine
DX: M47.816 Spondylosis without myelopathy or radiculopathy, lumbar region (principal); W19.XXXA Unspecified fall, initial encounter; Z98.890 Other specified postprocedural states
CPT/HCPCS: 72100

== ENCOUNTER → 2018-12-11 | Outpatient (CLI) | payer MEDICARE, MEDICAID ==
--- NOTE | 2018-12-11 14:37 | Diagnostic Imaging Report ---
PROCEDURE: CT abdomen and pelvis without contrast. TECHNIQUE: Multiple contiguous axial images were obtained through the abdomen and pelvis without the use of intravenous contrast. Auto Exposure Controls were utilized during the CT exam to meet ALARA standards for radiation dose reduction. INDICATION: History of nephrolithiasis now with right-sided pain. COMPARISON: Exam compared 07/17/2018. FINDINGS: Small nonobstructing stones within the right upper and interpolar calyces are larger than on prior, now measuring maximally 4.2 mm, previously 2 mm. There is however no hydroureteronephrosis and no opaque ureteral stone is found. No perinephric or periureteric edema. The unopacified urinary bladder had an unremarkable appearance. Uterus and adnexa unremarkable. The appendix surgically absent. Gallbladder surgically absent. The liver, spleen, adrenals, pancreas and bile ducts unremarkable. The aorta is nonaneurysmal. Some mild subcutaneous induration in the right lower quadrant favoring sequelae of percutaneous injections. No free air. No suspicious fluid collection. No acute inflammatory process. Postoperative and degenerative changes to lower lumbar spine with leftward convexity lumbar scoliosis stable. IMPRESSION: The nonobstructing right renal calculi have increased in size. No ureteral stone. The left kidney negative. No acute appearing abnormality. Dictated by: Dictated on workstation # [id number]
== END ==
LOC: RAD 11:20
PROVIDERS: ATTEND Family Medicine
DX: N20.0 Calculus of kidney (principal); Z90.49 Acquired absence of other specified parts of digestive tract
CPT/HCPCS: 74176

== ENCOUNTER → 2018-12-26 | Outpatient (CLI) | payer MEDICARE, MEDICAID ==
--- NOTE | 2018-12-26 13:28 | Diagnostic Imaging Report ---
PROCEDURE: MRI lumbar spine. TECHNIQUE: Multiplanar, multisequence MRI of the lumbar spine was performed without contrast. INDICATION: Back pain. Prior lumbar spine surgery. COMPARISON: Lumbar spine radiographs 08/20/2018. CT lumbar spine without contrast 06/10/2018. FINDINGS: Stable moderate left apex lumbar curvature centered at L4-L5. Postoperative findings of a right naomi and pedicle screw fixation with laminectomies at L5-S1. Mild scattered degenerative endplate changes. Bone marrow signal is otherwise unremarkable. No abnormal signal in the conus which terminates at L1. Normal morphology of the cauda equina without evidence of arachnoiditis. Simple-appearing fluid collection in the postoperative subcutaneous soft tissues measures up to 3.9 cm. This results in no neural impingement. L1-L2: No spinal canal, lateral recess, or neural foraminal narrowing. L2-L3: Annular disc bulge and facet arthropathy result in moderate right lateral recess and mild spinal canal narrowing. Mild right neural foraminal narrowing. L3-L4: Ligamentous hypertrophy and facet arthropathy combine with an annular disc bulge to result in moderate spinal canal narrowing. Mild bilateral neural foraminal narrowing. L4-L5: The spinal canal is decompressed well. No lateral recess narrowing. Advanced right neural foraminal narrowing primarily due to the lumbar curvature. There appears to have been a left foraminotomy with no neural impingement. L5-S1: Disc space height loss, annular disc bulge, and facet arthropathy all result in [id number] bilateral neural foraminal narrowing. No substantial spinal canal or lateral recess narrowing. IMPRESSION: 1. Stable postoperative findings of a right naomi and pedicle screw fixation at L4-L5 and left foraminotomy. 2. Spondylotic and scoliotic changes result in multilevel high-grade neural foraminal narrowing and lateral recess narrowing, detailed above. There is moderate spinal canal narrowing at L3-L4. 3. Simple-appearing fluid collections in the postoperative subcutaneous soft tissues measures up to 3.9 cm and likely represents a benign seroma. Dictated by: Dictated on workstation # [id number]
== END ==
LOC: RAD 12:10
PROVIDERS: ATTEND Orthopaedic Surgery
DX: M51.37 Other intervertebral disc degeneration, lumbosacral region (principal); M51.27 Other intervertebral disc displacement, lumbosacral region; M46.87 Other specified inflammatory spondylopathies, lumbosacral region; M48.07 Spinal stenosis, lumbosacral region; M47.816 Spondylosis without myelopathy or radiculopathy, lumbar region; M41.86 Other forms of scoliosis, lumbar region; Z98.890 Other specified postprocedural states
CPT/HCPCS: 72148

== ENCOUNTER 2019-01-19 16:00 | Inpatient (IN) | payer MEDICARE, MEDICAID ==
[~2019-01-19] VITALS: Ht 165.1 cm; Wt 101.6 kg
[2019-01-19] MEDS ORDERED: DEXAMETHASONE 4 MG/ML SDV (DECADRON) IV ONE (17:00)
[2019-01-19] MEDS ORDERED: fentaNYL INJECTION 100 MCG/2 ML AMP IVP ONE ×2 (17:00→18:30)
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
[2019-01-19 17:02] LABS: HEMATOCRIT 38 % (35-52); HEMOGLOBIN 12.6 G/DL (11.5-16.0); MEAN CORPUSCULAR HEMOGLOBIN 28 PG (25-34); MEAN CORPUSCULAR VOLUME 85 FL (80-99); WHITE BLOOD COUNT 7.7 10^3/uL (4.3-11.0)
[2019-01-19 17:03] LABS: BASOPHILS # (AUTO) 0.1 10^3/uL (0.0-0.1); BASOPHILS % (AUTO) 1 % (0-10); EOSINOPHILS # (AUTO) 0.3 10^3/uL (0.0-0.3); EOSINOPHILS % (AUTO) 3 % (0-10); LYMPHOCYTES # (AUTO) 2.5 X 10^3 (1.0-4.0); LYMPHOCYTES % (AUTO) 33 % (12-44); MEAN CORPUSCULAR HGB CONC 33 G/DL (32-36); MEAN PLATELET VOLUME 11.4 FL (7.4-10.4); MONOCYTES # (AUTO) 0.6 X 10^3 (0.0-1.0); MONOCYTES % (AUTO) 8 % (0-12); NEUTROPHILS # (AUTO) 4.2 X 10^3 (1.8-7.8); NEUTROPHILS % (AUTO) 54 % (42-75); PLATELET COUNT 196 10^3/uL (130-400); RED CELL DISTRIBUTION WIDTH 13.2 % (10.0-14.5)
[2019-01-19 17:23] LABS: BUN/CREATININE RATIO 21; CALCIUM 9.9 MG/DL (8.5-10.1); CARBON DIOXIDE 26 MMOL/L (21-32); CHLORIDE 104 MMOL/L (98-107); CREATININE SERUM 0.68 MG/DL (0.60-1.30); GFR ESTIMATED > 60; GLUCOSE 138 MG/DL (70-105); SODIUM 141 MMOL/L (135-145)
--- NOTE | 2019-01-19 17:41 | Diagnostic Imaging Report ---
PROCEDURE: CT lumbar spine without contrast. TECHNIQUE: Multiple contiguous axial images were obtained through the lumbar spine without the use of intravenous contrast. Sagittal and coronal reformations were then performed. Auto Exposure Controls were utilized during the CT exam to meet ALARA standards for radiation dose reduction. INDICATION: Low back pain with previous back surgery in May 2018. COMPARISON: Correlation is made to CT scan of the abdomen and pelvis dated 12/11/2018. FINDINGS: There is unchanged left convexity curvature of the lumbar spine. There is moderate narrowing of the L4-5 disc space which is more pronounced on the right. There are right pedicle screws and posterior fusion at L4-5 as well without significant change from previous examination. There is an apparent right paramedian protrusion of L1-2 disc which indents the ventral thecal sac without significant spinal or neural foraminal stenosis. L2-3 disc is unremarkable although there is mild ligament flavum hypertrophy at this level. At L3-4, artifact from posterior fusion device limits assessment; however, there does appear to be ligamentum flavum hypertrophy and probable mild trefoil type spinal stenosis. There is likely associated mild right neural foraminal stenosis. At the L4-5 level, there is posterior decompression from left laminectomy. At L5-S1 there are prominent endplate osteophytes with diffuse disc bulging causing moderate bilateral neural foraminal stenosis. There is no evidence of acute fracture or malalignment. No paraspinous hematoma is identified. Note is made of several punctate nonobstructing right renal calculi. IMPRESSION: Lower lumbar degenerative disc and facet disease resulting in moderate right neural foraminal stenosis at L4-5 and moderate bilateral neural frontal stenosis at the L5-S1 level. No significant central spinal stenosis is identified. Dictated by: Dictated on workstation # [id number]
--- NOTE | 2019-01-19 18:13 | NUR ---
Called charhouse worker to notify of need for bed placement.
[2019-01-19 19:20] VITALS: BP 134/84
--- NOTE | 2019-01-19 19:30 | NUR ---
HITESH KIRKLAND admitted to room 433-1, with an admitting diagnosis of BACK PAIN, on 01/19/19 from ED VIA STAFF, accompanied by EMS. HITESH KIRKLAND introduced to surroundings, call light, bed controls, phone, TV, temperature control, lights, meal times, smoking policy, visitor policy, side rail policy, bathrooms and showers. Patient Rights given to patient in the handbook. HITESH KIRKLAND verbalizes understanding that [facility] is not responsible for the loss or damage to any personal effects or valuables that are kept in the patients possession during their hospitalization. HITESH KIRKLAND verbalizes understanding of Interdisciplinary Patient Education. Patient and/or family were informed about the Rapid Response Team and its purpose.
[2019-01-19] MEDS: fentaNYL INJECTION 100 MCG/2 ML AMP IV PRN (20:59)
[2019-01-19] MEDS: NS IV 1000 ML 1,000 ML IV SCH (20:59)
[2019-01-20 00:53] VITALS: BP 123/68
[2019-01-20] MEDS: fentaNYL INJECTION 100 MCG/2 ML AMP IV PRN ×5 (03:52→18:58)
[2019-01-20 04:11] VITALS: BP 135/79
[2019-01-20 08:08] VITALS: BP 130/76
[2019-01-20] MEDS: NS IV 1000 ML 1,000 ML IV SCH ×2 (08:29→21:35)
[2019-01-20 11:50] VITALS: BP 132/68
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
[2019-01-20] MEDS: ACETAMINOPHEN 500 MG TAB (TYLENOL) PO SCH ×2 (12:01→20:10)
[2019-01-20] MEDS: GABAPENTIN 300 MG (NEURONTIN) CAP PO SCH ×2 (12:01→20:11)
[2019-01-20 16:00] VITALS: BP 130/63
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
[2019-01-20] MEDS ORDERED: DEXAMETHASONE 10 MG/ML (DECADRON) 1 ML VIAL ONE (18:16)
[2019-01-20] MEDS: DEXAMETHASONE 4 MG/ML SDV (DECADRON) IV SCH (19:20)
[2019-01-20 19:43] VITALS: BP 132/60
[2019-01-20] MEDS: DIAZEPAM 5 MG (VALIUM) TABLET PO PRN (20:10)
[2019-01-20] MEDS ORDERED: LITHIUM CARBONATE 300 MG TABLET PO SCH (21:00)
[2019-01-20] MEDS ORDERED: inSUlin ASPART (NovoLOG) 1 UNIT/0.01 ML (CHARGE PER UNIT) ONE (22:01)
[2019-01-20] MEDS ORDERED: inSUlin ASPART (NovoLOG) 1 UNIT/0.01 ML (CHARGE PER UNIT) SC SCH (22:15)
[2019-01-21] VITALS: BP 133/68
[2019-01-21] MEDS: fentaNYL INJECTION 100 MCG/2 ML AMP IV PRN ×3 (00:38→12:19)
[2019-01-21] MEDS: DEXAMETHASONE 4 MG/ML SDV (DECADRON) IV SCH ×4 (02:04→19:03)
[2019-01-21 03:24] VITALS: BP 160/80
[2019-01-21] MEDS: ACETAMINOPHEN 500 MG TAB (TYLENOL) PO SCH ×3 (03:44→19:45)
[2019-01-21] MEDS: inSUlin ASPART (NovoLOG) 1 UNIT/0.01 ML (CHARGE PER UNIT) SC SCH ×4 (06:42→22:49)
[2019-01-21 07:50] VITALS: BP 131/72
[2019-01-21] MEDS ORDERED: FLUO40CA PO (09:10)
[2019-01-21] MEDS ORDERED: OXYC-465 PO (09:10)
[2019-01-21] MEDS ORDERED: LITH600C PO (09:10)
[2019-01-21] MEDS ORDERED: TIZA2TAB4 PO (09:10)
[2019-01-21] MEDS: GABAPENTIN 300 MG (NEURONTIN) CAP PO SCH ×3 (09:11→20:39)
[2019-01-21] MEDS: amLODIPine 5 MG (NORVASC) TAB PO SCH (09:11)
--- NOTE | 2019-01-21 09:12 | NUR ---
SPOKE WITH THE PATIENT ABOUT HER MEDICATIONS. WE WENT OVER THE EXT MED HX AND SHE VERIFIED HOW SHE TAKES THEM. SHE STATES THERE ARE SEVERAL MEDICATIONS SHE IS SUPPOSED TO BE TAKING BUT HAS NOT FILLED THEM FOR AWHILE. I REMOVED THEM FROM THE MED REC. SHE STATES SHE DOES NOT TAKE ANYTHING OTC.
[2019-01-21 12:00] VITALS: BP 143/69
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
--- NOTE | 2019-01-21 13:34 | NUR ---
CM/SS, respond to consult. DME: FWW Referral completed with patient's preferred agency, [facility] in her hometown. They can not fill order until patient is discharged from hospital, updated them no discharge this date. TRANSPORT: Patient would have needed transport today if discharged, might be able to coordinate something for different day. [facility] [phone]
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
[2019-01-21 16:26] VITALS: BP 146/70
[2019-01-21] MEDS: morphine INJ 4 MG/ML 1 ML (VIAL/SYRINGE) IVP PRN ×2 (19:02→22:48)
[2019-01-21 20:15] VITALS: BP 141/72
[2019-01-21] MEDS: DIAZEPAM 5 MG (VALIUM) TABLET PO PRN (20:39)
[2019-01-21] MEDS: oxyCODONE ER 15 MG (oxyCONTIN CR) TAB PO SCH (20:39)
[2019-01-21] MEDS: LITHIUM CARBONATE 300 MG TABLET PO SCH (20:40)
[2019-01-22 00:38] VITALS: BP 149/74
[2019-01-22 03:49] VITALS: BP 162/72
[2019-01-22] MEDS: ACETAMINOPHEN 500 MG TAB (TYLENOL) PO SCH ×2 (03:51→11:14)
[2019-01-22] MEDS: inSUlin ASPART (NovoLOG) 1 UNIT/0.01 ML (CHARGE PER UNIT) SC SCH ×2 (06:23→11:10)
[2019-01-22 08:00] VITALS: BP 142/76
[2019-01-22] MEDS: amLODIPine 5 MG (NORVASC) TAB PO SCH (08:52)
[2019-01-22] MEDS: LITHIUM CARBONATE 300 MG TABLET PO SCH (08:52)
[2019-01-22] MEDS: GABAPENTIN 300 MG (NEURONTIN) CAP PO SCH ×2 (08:52→13:30)
[2019-01-22] MEDS: oxyCODONE ER 15 MG (oxyCONTIN CR) TAB PO SCH (08:52)
[2019-01-22] MEDS ORDERED: FLUoxetine HCL 20 MG (PROzac) CAP PO SCH (09:00)
--- NOTE | 2019-01-22 10:04 | Physical Therapy Daily Note ---
PT Daily Note-Current Subjective Patient agrees to PT. Pain Numeric Pain Scale: 5-Moderate Pain Location: Left Location Body Site: Hip Pain Description: Ache Mental Status Patient Orientation: Normal For Age Transfers Therapy Code Descriptions/Definitions Functional [place] Measure: 0=Not Assessed/NA 4=Minimal Assistance 1=Total Assistance 5=Supervision or Setup 2=Maximal Assistance 6=Modified [place] 3=Moderate Assistance 7=Complete [place] Therapy Quality Codes: 6 Independent with activity with or without an assistive device 5 Patient requires set up or clean up by helper. Patient completes activity by themselves 4 Supervision or touching assist (CGA). [place] provide cues , steadying assist 3 The helper provides less than half the effort to complete the activity 2 The helper provides more than half the effort to complete the activity 1 Dependent. The helper does all the effort to complete an activity 7 Patient refused to complete or attempt activity 9 The patient did not perform the activity before the current illness or i njury 88 Not attempted due to Medical conditions or safety concerns Transfers (B, C, W/C) (FIM): 7 Scootin Supine to/from Sit: 7 Sit to/from Stand: 7 Bed to/from Chair: 7 Weight Bearing Right Lower Extremity: Right Weight Bearing/Tolerated Left Lower Extremity: Left Weight Bearing/Tolerated Gait Training Gait (FIM): 6 Distance (FIM): 3=150 ft Distance: >500' Gait Level of Assist: 6 Gait Assistive Device: FWW no deviation/functional gait sequence Assessment Patient is currently safe to return to home with use of FWW. Physician observed patient in hallway ambulating. PT to dismiss patient from services at this time. PT Short Term Goals Short Term Goals Time Frame: Jan 22, 2019 Transfers (B,C,W/C) (FIM): 7 Gait (FIM): 6 Distance (FIM): 3=150 ft Gait Distance Comment: >300' Gait Level of Assist: 6 Gait Assistive Device: FWW PT Plan Treatment/Plan Treatment Plan: Discontinue PT, goals met Treatment Plan: Education, Functional Activity Lizzie, Functional Strength, G ait, Safety, Therapeutic Exercise Treatment Duration: Jan 22, 2019 Frequency: 2 times per week Estimated Hrs Per Day: .25 hour per day Patient and/or Family Agrees t: Yes Time/GCodes Time In: 940 Time Out: 956 Total Billed Treatment Time: 16 Total Billed Treatment 1 visit FA 16 min YAKELIN ROSSI PT Jan 22, 2019 10:04
[2019-01-22] MEDS ORDERED: OXYC15TA73 PO (11:07)
[2019-01-22] MEDS ORDERED: AMLO5TAB9 PO (11:07)
[2019-01-22] MEDS ORDERED: GABA-488 PO (11:07)
--- NOTE | 2019-01-22 11:12 | Discharge Summary ---
Diagnosis/Chief Complaint Date of Admission Jan 22, 2019 at 10:22 Date of Discharge Discharge Date: Jan 22, 2019 Admission Diagnosis Intractable back pain Primary Care Prashant Kuhn MD Discharge Diagnosis (1) Lumbar stenosis with neurogenic claudication (2) Lumbar radiculopathy Status: Acute (3) Back pain Status: Acute (4) Status post laminectomy Status: Chronic Discharge Summary Discharge Physical Exam Allergies: Coded Allergies: tramadol (Unverified Allergy, Severe, 05/15/18) fluticasone propionate (Unverified Adverse Reaction, Intermediate, thrush, 05/15/18) salmeterol xinafoate (Unverified Adverse Reaction, Intermediate, thrush, 05/15/18) topiramate (Unverified Adverse Reaction, Intermediate, numbness, 05/15/18) Vitals & I&Os Vital Signs Date Time Temp Pulse Resp B/P (MAP) Pulse Ox O2 Delivery O2 Flow Rate FiO2 01/22/19 08:45 Room Air 01/22/19 08:00 36.7 59 18 142/76 (98) 100 Hospital Course Labs (last 24 hrs) Laboratory Tests 01/21/19 15:55: Glucometer 279H 01/21/19 22:39: Glucometer 378H 01/22/19 06:16: Glucometer 163H Patient resulted labs reviewed. Pending Labs Laboratory Tests 01/22/19 06:16: Glucometer 163 Imaging: Reviewed Imaging Report Discharge Home Medications: Active Scripts Active Gabapentin 300 Mg Capsule 300 Mg PO TID Oxycontin (Oxycodone HCl) 15 Mg Tab.er.12h 15 Mg PO Q12HR Amlodipine Besylate 5 Mg Tablet 5 Mg PO DAILY Reported Fluoxetine HCl 40 Mg Capsule 40 Mg PO DAILY [place] Carbonate 600 Mg Capsule 600 Mg PO BID Oxycodone-Acetaminophen 10-325 (Oxycodone HCl/Acetaminophen) 1 Each Tablet 1 Tab PO Q6H PRN Tizanidine HCl 2 Mg Tablet 2 Mg PO TID PRN Instructions to patient/family Please see electronic discharge instructions given to patient. Clinical Quality Measures DVT/VTE Risk/Contraindication: Risk Factor Score Per Nursin RFS Level Per Nursing on Admit: 4+=Very High Problem Qualifiers (1) Back pain: Back pain location: low back pain Chronicity: acute Back pain laterality: bilateral Sciatica presence: with sciatica Sciatica laterality: bilateral sciatica Qualified Codes: M54.42 - Lumbago with sciatica, left side; M54.41 - Lumbago with sciatica, right side GENE RIVAS MD Jan 22, 2019 11:12
[2019-01-22 12:00] VITALS: BP 132/72
--- NOTE | 2019-01-22 13:39 | Discharge Inst-Simple/Standard ---
Discharge Inst-Standard Reconcile Patient Problems Problems Reviewed?: Yes Discharge Medications New, Converted or Re-Newed RX: Transmitted to Pharmacy Patient Instructions/Follow Up Plan of Care/Instructions/FU: Please continue to take your medications as written. Please follow up with Dr Kuhn in the next 1-2 weeks. Activity as Tolerated: Yes Discharge Diet: No Restrictions Return to The Hospital For: Worsening pain, chest pain, shortness of breath, if you feel you are getting worse. GENE RIVAS MD Jan 22, 2019 13:39
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
--- NOTE | 2019-01-22 15:33 | NUR ---
Initial Sound Effects Person visit made by Chaplain Brittaney Frost.
[2019-01-22] MEDS ORDERED: MORP15TA69 PO (16:59)
== END 2019-01-22 16:00 | disposition home or self-care (01) | DRG 552 ==
LOC: EDUNIT# 16:00 → ER FS 16:01 → 4TH 18:23 → UNDOADMOB 18:23 → 4TH 19:20 → OBSVTOIN 01-22 10:22
PROVIDERS: ADMIT Internal Medicine; ATTEND Internal Medicine
DX: M48.062 Spinal stenosis, lumbar region with neurogenic claudication (principal); M54.16 Radiculopathy, lumbar region; M54.42 Lumbago with sciatica, left side; M54.41 Lumbago with sciatica, right side; I10 Essential (primary) hypertension; K58.1 Irritable bowel syndrome with constipation; K58.0 Irritable bowel syndrome with diarrhea; M79.7 Fibromyalgia; M41.9 Scoliosis, unspecified; E11.65 Type 2 diabetes mellitus with hyperglycemia; E66.01 Morbid (severe) obesity due to excess calories; F41.9 Anxiety disorder, unspecified; F31.9 Bipolar disorder, unspecified; L40.9 Psoriasis, unspecified; M46.1 Sacroiliitis, not elsewhere classified; T38.0X5A Adverse effect of glucocorticoids and synthetic analogues, initial encounter; Z98.890 Other specified postprocedural states; Z68.37 Body mass index [BMI] 37.0-37.9, adult; Z86.711 Personal history of pulmonary embolism; Z86.718 Personal history of other venous thrombosis and embolism; Z87.440 Personal history of urinary (tract) infections; Z87.442 Personal history of urinary calculi
CPT/HCPCS: 36415; 72131; 80048; 82962; 85025; G0378

== ENCOUNTER 2019-02-14 11:54 | Outpatient (CLI) | payer MEDICARE, MEDICAID ==
[~2019-02-14] VITALS: Wt 101.6 kg
[~2019-02-14 11:54] MED LIST changes: +AMLO5TAB9 PO; +FLUO40CA PO; +GABA-488 PO; +LITH600C PO; +MORP15TA69 PO; +OXYC15TA73 PO; +TIZA2TAB4 PO
== END 2019-02-14 15:15 | disposition home or self-care (01) ==
LOC: PREOP 11:54
PROVIDERS: ATTEND Orthopaedic Surgery
DX: Z01.818 Encounter for other preprocedural examination (principal)
CPT/HCPCS: 87081

== ENCOUNTER 2019-02-18 09:05 | Inpatient (IN) | payer MEDICARE, MEDICAID ==
[~2019-02-18] VITALS: Ht 165.1 cm; Wt 101.6 kg
[2019-02-18] VITALS (12 sets, daily range): BP systolic 95–125; BP diastolic 49–82
[2019-02-18] MEDS ORDERED: VANCOMYCIN 1000 MG/VIAL ONE (09:23)
[2019-02-18] MEDS ORDERED: BUP/EPI 0.5% 1:200,000 (SENSORCAINE) 30 ML VIAL ONE (09:23)
[2019-02-18] MEDS ORDERED: BACITRACIN OINTMENT 28 GM TUBE ONE (09:23)
[2019-02-18] MEDS ORDERED: ceFAZolin 2 GM IV Premixed 50 ML IV ONE (09:30)
[2019-02-18] MEDS: LACTATED RINGERS 1,000 ML IV PRN ×3 (09:39→20:17)
[2019-02-18] MEDS ORDERED: MIDAZOLAM 2 MG/2 ML (VERSED) VIAL ONE (09:40)
[2019-02-18] MEDS ORDERED: fentaNYL INJECTION 250 MCG/5 ML AMP ONE (09:41)
[2019-02-18] MEDS ORDERED: BACITRACIN 100,000 UNIT/NS 1000 ML POUR BOTTLE IR ONE ×2 (09:45)
[2019-02-18] MEDS ORDERED: PROP10TA8 PO (09:45)
[2019-02-18] MEDS ORDERED: DEXMEDETOMIDINE 200 MCG/2 ML (PRECEDEX) VIAL IV ONE (13:05)
[2019-02-18] MEDS ORDERED: GLYCOPYRROLATE 0.2 MG/ML (ROBINUL) 2 ML VIAL ONE (13:05)
[2019-02-18] MEDS ORDERED: LIDOCAINE PF 2% 5 ML (XYLOCAINE) VIAL ONE (13:05)
[2019-02-18] MEDS ORDERED: proPOfol 200 MG/20 ML (DIPRIVAN) VIAL IV ONE (13:05)
[2019-02-18] MEDS ORDERED: NS (IVPB) 250 ML ONE (13:05)
[2019-02-18] MEDS ORDERED: NEOSTIGMINE 3 MG/3 ML VIAL ONE (13:05)
[2019-02-18] MEDS ORDERED: ONDANSETRON 4 MG/2 ML (SDV) Z0FRAN ONE (13:05)
[2019-02-18] MEDS ORDERED: ROCURONIUM 10 MG/ML 5 ML SYRINGE IV ONE (13:05)
[2019-02-18] MEDS ORDERED: BISACODYL 5 MG (DULCOLAX) TABLET PO PRN (13:15)
[2019-02-18] MEDS ORDERED: NON-FORMULARY MEDICATION 1 EA EA (Tizanidine HCl 2 MG) PO PRN (13:15)
[2019-02-18] MEDS ORDERED: METOCLOPRAMIDE 10 MG (REGLAN) TAB PO PRN (13:15)
[2019-02-18] MEDS ORDERED: METOCLOPRAMIDE INJ 10 MG/2 ML (REGLAN) IV PRN (13:15)
[2019-02-18] MEDS ORDERED: oxyCODONE/APAP 10/325MG (PERCOCET 10) TABLET PO PRN (13:15)
[2019-02-18] MEDS ORDERED: BISACODYL 10 MG SUPP (DULCOLAX) PR PRN (13:15)
[2019-02-18] MEDS ORDERED: ONDANSETRON 4 MG/2 ML (SDV) Z0FRAN IV PRN (13:15)
[2019-02-18] MEDS ORDERED: PROMETHAZINE 25 MG (PHENERGAN) TAB PO PRN (13:15)
[2019-02-18] MEDS ORDERED: ACETAMINOPHEN 325 MG TABLET PO PRN (13:15)
[2019-02-18] MEDS ORDERED: morphine INJ 10 MG/ML 1ML (SYR OR VIAL) ONE (13:35)
[2019-02-18] MEDS ORDERED: morphine INJ 10 MG/ML 1ML (SYR OR VIAL) IVP ONE (13:45)
[2019-02-18] MEDS ORDERED: ONDANSETRON 4 MG/2 ML (SDV) Z0FRAN IVP PRN (13:45)
[2019-02-18] MEDS ORDERED: fentaNYL INJECTION 100 MCG/2 ML AMP IVP ONE (13:45)
[2019-02-18] MEDS ORDERED: HYDROmorphone 2 MG/ML VIAL (DILAUDID) IV ONE (13:45)
--- NOTE | 2019-02-18 14:20 | NUR ---
Pt arrived to floor with Pinky TATUM. Midline back dressing/CDI, Davol drain in place. Pt oriented to room, call light in reach, will continue to monitor.
--- NOTE | 2019-02-18 15:24 | Diagnostic Imaging Report ---
INDICATION: Hardware removal. COMPARISON: 05/21/2018. TOTAL FLUOROSCOPY TIME: 34 seconds. FINDINGS: A single crosstable lateral radiographic view of the lumbar spine was obtained during hardware removal. No unexpected radiopaque foreign bodies are seen. Please note, the interpreting radiologist was not present during the procedure. IMPRESSION: Fluoroscopic guidance was provided during lumbar spine hardware removal. Dictated by: Dictated on workstation # [id number]
[2019-02-18] MEDS: fentaNYL INJECTION 100 MCG/2 ML AMP IVP PRN ×4 (15:43→23:57)
[2019-02-18] MEDS ORDERED: FLU QUADRIvalent (5+ YOA) 2019-2020 (AFLURIA) 0.5 ML IM ONE (16:15)
--- NOTE | 2019-02-18 16:36 | OPERATIVE REPORT ---
DATE OF SERVICE: 02/18/2019 SURGEON: Elbert Beach DO PROFESSOR CRIMINAL JUSTICE: MAAME Maher. This is a medically necessary procedure. Handicraft Or Hobby Shop Manager was necessary for retraction of vital neurovascular structures. Without an assistant professor of philosophy, the procedure would not be possible. PREOPERATIVE DIAGNOSES: 1. Lumbar radiculopathy. 2. Lumbar spinal stenosis (bony, foraminal). POSTOPERATIVE DIAGNOSES: 1. Lumbar radiculopathy. 2. Lumbar spinal stenosis (bony, foraminal) PROCEDURE PERFORMED: Revision complete left L5-S1 facetectomy. Exploration of fusion Removal of hardware COMPLICATIONS: None. SPECIMEN SENT: None. DRAINS PLACED: Subfascial Hemovac. ANESTHESIA: General endotracheal tube anesthesia with local anesthetic. ESTIMATED BLOOD LOSS: Minimal. HISTORY OF PRESENT ILLNESS: The patient is a very pleasant 28-year-old female who has a history of prior L4-L5 instrumented fusion by myself. She did have a subsequent recurrent stenosis at L5-S1, worse on the left side. She did wish to have this addressed after having failing conservative measures. DESCRIPTION OF PROCEDURE: The patient was identified by name on wrist band in the preoperative holding area. Her operative site was signed, consent was signed. SCDs were placed. Neuromonitoring was hooked up and antibiotics were started. She was taken to the operating room theater and placed under general endotracheal tube anesthesia and then transferred to the operating room table in the prone position. She was prepped and draped in the usual sterile fashion. Formal time out was conducted. At this point, an incision was then made over the old scar line. I performed a bilateral subperioseal paramuscular approach to the L4-5 and L5-S1 levels, exposing the right sided L4-5 screws. I did an exploration of fusion and the L4- 5 level was indeed solidly fused. Significant scar tissue was encountered, which made the remainder of the procedure very difficult. 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 In fact, subsequent analysis of her anatomy revealed that she had no L5 pedicle for to me to place a pedicle screw in. Therefore, I decided not to do a fusion at L5-S1 and there did not appear to be any unstable motion. I did a left complete facetectomy decompressing the exiting left L5 nerve root and did not feel I needed to fuse. I did remove the screws and the naomi at L4-5. I maintained hemostasis, irrigated the wound and I closed it utilizing #0 Vicryl followed by 2-0 Vicryl followed by shonna for skin. We applied dressings and took the patient in the supine position to the PACU where she awoke without incident. She tolerated the procedure well. PLAN: The plan at this time is to admit the patient for IV antibiotics, pain control, and postoperative monitoring. She will be out of bed on POD 1 in a brace. I will discontinue her drain per my protocol. Job ID: [id number] DocumentID: [id number] Dictated Date: 02/18/2019 14:02:49 Quality Process Engineer Date: 02/18/2019 16:35:11 Dictated By: DO JOSESITO NGUYEN
[2019-02-18] MEDS: HYDROcodone/APAP 5 MG/325 MG (LORTAB) TAB PO PRN ×2 (16:49→22:04)
[2019-02-18] MEDS: ceFAZolin INJECTION 1,000 MG in WATER (STERILE) FOR INJECTION 10 ML IV SCH (17:32)
[2019-02-18] MEDS: FAMOTIDINE 20 MG (PEPCID) TABLET PO SCH (20:16)
[2019-02-18] MEDS: LITHIUM CARBONATE 300 MG TABLET PO SCH (20:16)
[2019-02-18] MEDS: GABAPENTIN 300 MG (NEURONTIN) CAP PO SCH (20:16)
[2019-02-18] MEDS: morphine ER 15 MG (MS CONTIN) TAB PO SCH (20:16)
[2019-02-18] MEDS ORDERED: LITHIUM CARBONATE 600 MG PO SCH (21:00)
[2019-02-19 00:35] VITALS: BP 115/52
[2019-02-19] MEDS: ceFAZolin INJECTION 1,000 MG in WATER (STERILE) FOR INJECTION 10 ML IV SCH ×2 (01:11→09:00)
[2019-02-19 04:31] VITALS: BP 120/56
[2019-02-19] MEDS: HYDROcodone/APAP 5 MG/325 MG (LORTAB) TAB PO PRN ×2 (04:36→08:59)
[2019-02-19] MEDS: MULTIVIT W/MINERALS TAB (THERAGRAN M) PO SCH (04:36)
--- NOTE | 2019-02-19 07:05 | Anesthesia-General Post-Op ---
General Patient Condition Mental Status/LOC: Same as Preop Cardiovascular: Satisfactory Nausea/Vomiting: Absent Respiratory: Satisfactory Pain: Controlled Complications: Absent Post Op Complications Complications None Follow Up Care/Instructions Patient Instructions None needed. Anesthesia/Patient Condition Patient Condition Patient is doing well, no complaints, stable vital signs, no apparent adverse anesthesia problems. No complications reported per nursing. D/C home per [facility] Criteria: Yes LAURI UGARTE CRNA Feb 19, 2019 07:05
[2019-02-19 07:10] LABS: HEMOGLOBIN 11.8 G/DL (11.5-16.0); MEAN PLATELET VOLUME 11.8 FL (7.4-10.4); RED CELL DISTRIBUTION WIDTH 13.9 % (10.0-14.5); WHITE BLOOD COUNT 9.3 10^3/uL (4.3-11.0)
[2019-02-19 07:23] LABS: ALANINE AMINOTRANSFERASE 21 U/L (0-55); ALBUMIN 3.3 GM/DL (3.2-4.5); ALKALINE PHOSPHATASE 58 U/L (40-136); BILIRUBIN,TOTAL 0.5 MG/DL (0.1-1.0); BUN/CREATININE RATIO 10; CALCIUM 8.8 MG/DL (8.5-10.1); CARBON DIOXIDE 22 MMOL/L (21-32); CHLORIDE 104 MMOL/L (98-107); CREATININE SERUM 0.67 MG/DL (0.60-1.30); GFR ESTIMATED > 60; GLUCOSE 142 MG/DL (70-105); POTASSIUM 3.9 MMOL/L (3.6-5.0); SODIUM 137 MMOL/L (135-145); TOTAL PROTEIN 5.9 GM/DL (6.4-8.2)
[2019-02-19 08:00] VITALS: BP 128/58
--- NOTE | 2019-02-19 08:45 | Occupational Therapy Eval ---
OT Evaluation-General/PLF Medical Diagnosis Admission Date Feb 18, 2019 at 09:05 Medical Diagnosis: s/p revision left L5-S1 Facetectomy Onset Date: Feb 18, 2019 Therapy Diagnosis Therapy Diagnosis: impaired ADLs and functional mobility Height/Weight Height (Feet): 5 Height (Inches): 4.00 Weight (Pounds): 249 Weight (Ounces): 0 Precautions Precautions/Isolations: Standard Precautions Safety Interventions: None Referral Physician: Francisco Javier Referral Reason: Activity Tolerance, Self Care, Evaluation/Treatment, Strengthening/ROM Medical History Pertinent Medical History: DM, HTN Additional Medical History Pt has hx of prior L4-L5 instrumented fusion. 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 Current History Pt underwent revision left L5-S1 facetectomy. Reviewed History: Yes Social History Home: Apartment (2nd story) Current Living Status: Mother in Law Entry Into Home: Stairs With Railing Steps Into Home: 12 (1 fight of stairs) ADL-Prior Level of Function SCALE: Activities may be completed with or without assistive devices. 8-Jequtcnfyn-jwesxwn completes the activity by him/herself with no assistance from a helper. 5-Set-up or Clean-up Assistance-helper sets up or cleans up; patient completes activity. [place] assists only prior to or following the activity. 4-Supervision or Touching Assistance-helper provides verbal cues and/or touching/steadying and/or contact guard assistance as patient completes activity. Assistance may be provided throughout the activity or intermittently. 3-Partial/Moderate Assistance-helper does LESS THAN HALF the effort. [place] lifts, holds or supports trunk or limbs, but provides less than half the effort. 2-Substantial/Maximal Assistance-helper does MORE THAN HALF the effort. [place] lifts or holds trunk or limbs and provides more than half the effort. 4-Hpumptqjq-nuowpf does ALL the effort. Patient does none of the effort to complete the activity. Or, the assistance of 2 or more helpers is required for the patient to complete the activity. If activity was not attempted, code reason: 7-Patient Refused. 9-Not Applicable-not attempted and the patient did not perform the activity before the current illness, exacerbation or injury. 10-Not Attempted due to Environmental Limitations-(lack of equipment, weather restraints, etc.). 88-Not Attempted due to Medical Conditions or Safety Concerns. ADL PLOF Comments Pt reports being independent with ADLs prior to hospitalization/surgery. Self Care: Independent Functional Cognition: Independent DME/Equipment: Bath Bench, Grab Bars, Shower (walk in) DME/Equipment Comments Pt has a walker, used as needed but not consistently. Drive Self: Yes OT Current Status Subjective Pt laying in bed at start of session, agreeable to OT eval/tx stating she needed to use the restroom. Pain Numeric Pain Scale: 8 Location Body Site: Back Mental Status/Objective Patient Orientation: Person, Place, Time, Situation Attachments: Drains, IV, SCD's, Other-See Comments (Back Brace) Current Glasses/Contacts: Yes Hearing Aids: No Dentures/Partials: No Hand Dominance: Left Upper Extremity ROM WFL BUE Upper Extremity Coordination WFL BUE Upper Extremity Sensation Pt denies changes in sensation BUE. Upper Extremity Strength 3+/5 MMT BUE ADL-Treatment Eating (QC): 6 Oral Hygiene (QC): 4 (supervision standing at sink during task.) Upper Body Dressing (QC): 3 (Pt able to adjust straps and place brace in proper position, required assistance holding brace in place as she fastened the straps.) On/Off Footwear (QC): 1 (Pt required assist donning BLE socks.) Toileting Hygiene (QC): 4 (Pt completed all parts of task with supervision) Toilet Transfer (QC): 4 (supervision during transfer.) Other Treatments Pt laying in bed at start of session. SBA supine to sit EOB. Pt donned backbrace before walking to the bathroom with FWW with SBA. Pt completed toileting, then stood at sink to complete oral hygiene and brushing her hair. Pt returned to recliner and started eating breakfast while providing information about PLOF and home set up. Post OT session, pt seated in recliner, call light in reach and all needs met. Education OT Patient Education: Correct positioning, Energy conservation, Modified ADL techniques, Progress toward Goal/Update tx plan, Purpose of tx/functional activities, Transfer techniques Teaching Recipient: Patient Teaching Methods: Demonstration Response to Teaching: Verbalize Understanding OT Short Term Goals Short Term Goals Time Frame: Mar 06, 2019 Grooming(FIM): 5 Bathing(FIM): 3 Upper Body Dressing(FIM): 5 Lower Body Dressing(FIM): 3 1=Demonstrate adherence to instructed precautions during ADL tasks. 2=Patient will verbalize/demonstrate understanding of assistive devices/modifications for ADL. 3=Patient will improve strength/tolerance for activity to enable patient to perform ADL's. OT Usp Goals Human Resource Adviser Goals Time Frame: Mar 15, 2019 Oral Hygiene (QC): 6 Bathing Location: L Arm, R Arm, L Upper Leg, R Upper Leg, L Lower Leg (including foot), R Lower Leg (including foot), Chest, Abdomen, Buttocks, Perineal Area Shower/Bathe Self (QC): 5 Upper Body Dressing (QC): 6 Lower Body Dressing (QC): 6 On/Off Footwear (QC): 6 Toileting Hygiene (QC): 6 Toilet/Commode Transfer (QC): 6 Additional Goals: 1-Demonstrate ADL Tasks, 2-Verbalize Understanding, 3- ImproveStrength/Lizzie 1=Demonstrate adherence to instructed precautions during ADL tasks. 2=Patient will verbalize/demonstrate understanding of assistive devices/modifications for ADL. 3=Patient will improve strength/tolerance for activity to enable patient to perform ADL's. OT Education/Plan Problem List/Assessment Assessment: Decreased Activ Tolerance, Decreased UE Strength, Impaired I ADL's, Impaired Self-Care Skills Discharge Recommendations Plan/Recommendations: Continue POC Therapy Discharge Recommendati: Intermittent Supervision Treatment Plan/Plan of Care Treatment,Training & Education: Yes Patient would benefit from OT for education, treatment and training to promote independence in ADL's, mobility, safety and/or upper extremity function for ADL's. Plan of Care: ADL Retraining, Caregiver Training, Functional Mobility, UE Funct Exercise/Act Treatment Duration: Mar 15, 2019 Frequency: 5 times per week Estimated Hrs Per Day: .25 hour per day Agreement: Yes Rehab Potential: Good Time/GCodes Start Time: 08:12 Stop Time: 08:35 Total Time Billed (hr/min): 23 Billed Treatment Time 1, EVL x10min, ADL [id number] GENEVA TORRES OT Feb 19, 2019 08:45
[2019-02-19] MEDS: FAMOTIDINE 20 MG (PEPCID) TABLET PO SCH ×2 (08:57→20:19)
[2019-02-19] MEDS: morphine ER 15 MG (MS CONTIN) TAB PO SCH ×2 (08:57→20:20)
[2019-02-19] MEDS: GABAPENTIN 300 MG (NEURONTIN) CAP PO SCH ×3 (08:57→20:19)
[2019-02-19] MEDS: LITHIUM CARBONATE 300 MG TABLET PO SCH ×2 (08:58→20:20)
[2019-02-19] MEDS: amLODIPine 5 MG (NORVASC) TAB PO SCH (08:59)
[2019-02-19] MEDS: FLUoxetine HCL 20 MG (PROzac) CAP PO SCH (08:59)
[2019-02-19] MEDS ORDERED: NON-FORMULARY MEDICATION 1 EA EA (Amlodipine Besylate 5 MG) PO SCH (09:00)
[2019-02-19] MEDS ORDERED: NON-FORMULARY MEDICATION 1 EA EA (Fluoxetine HCl 40 MG) PO SCH (09:00)
--- NOTE | 2019-02-19 10:33 | Physical Therapy Evaluation ---
PT Evaluation-General Medical Diagnosis Admission Date Feb 18, 2019 at 09:05 Medical Diagnosis: s/p revision left L5-S1 Facetectomy Onset Date: Feb 18, 2019 Therapy Diagnosis Therapy Diagnosis: debility Height/Weight Height (Feet): 5 Height (Inches): 4.00 Weight (Pounds): 249 Weight (Ounces): 0 Precautions Precautions/Isolations: Fall Prevention, Standard Precautions Weight Bear Status Right Lower Extremity: Right Full Weight Bearing Left Lower Extremity: Left Full Weight Bearing Referral Physician: Yong Reason for Referral: Evaluation/Treatment Medical History Pertinent Medical History: DM, HTN Current History s/p lumbar L5-S1 revision Reviewed History: Yes Social History Home: Apartment (2nd story) Current Living Status: Mother in Law Entry Into Home: Stairs With Railing PT Steps Into Home: 12 (1 fight of stairs) Prior Prior Level of Function SCALE: Activities may be completed with or without assistive devices. 9-Qlzznffwtv-cunncxg completes the activity by him/herself with no assistance from a helper. 5-Set-up or Clean-up Assistance-helper sets up or cleans up; patient completes activity. [place] assists only prior to or following the activity. 4-Supervision or Touching Assistance-helper provides verbal cues and/or touching/steadying and/or contact guard assistance as patient completes activity. Assistance may be provided throughout the activity or intermittently. 3-Partial/Moderate Assistance-helper does LESS THAN HALF the effort. [place] lifts, holds or supports trunk or limbs, but provides less than half the effort. 2-Substantial/Maximal Assistance-helper does MORE THAN HALF the effort. [place] lifts or holds trunk or limbs and provides more than half the effort. 5-Podpvfmix-dpmrvl does ALL the effort. Patient does none of the effort to complete the activity. Or, the assistance of 2 or more helpers is required for the patient to complete the activity. If activity was not attempted, code reason: 7-Patient Refused. 9-Not Applicable-not attempted and the patient did not perform the activity before the current illness, exacerbation or injury. 10-Not Attempted due to Environmental Limitations-(lack of equipment, weather restraints, etc.). 88-Not Attempted due to Medical Conditions or Safety Concerns. Bed Mobility: 6 Transfers (B,C,W/C): 6 Gait: 6 Prior Devices Use: Walker PT Evaluation-Current Subjective Patient agrees to PT. Patient requests pain medication. RN notified. Pain Numeric Pain Scale: 10-Worst Possible Pain Location: Lower Location Body Site: Back Pain Description: Acute, Chronic Objective Patient Orientation: Normal For Age Problem Solving: Good ROM/Strength ROM Lower Extremities bilateral LE WFL Strength Lower Extremities 4/5 grossly bilateral LE Integumentary/Posture Integumentary refer to nursing notes Bowel Incontinence: No Bladder Incontinence: No Posture WFL Neuromuscular (Tone, Coordination, Reflexes) grossly intact Sensory Vision: Functional Hearing: Functional Hand Dominance: Left Sensation Right Lower Extremit: Intact Sensation Left Lower Extremity: Intact Transfers Roll Left to Right (QC): 6 Sit to Lying (QC): 6 Lying to Sitting/Side of Bed(Q: 6 Sit to Stand (QC): 6 Chair/Xkp-db-Ssgrr Xfer(QC): 6 Gait Does the Patient Walk?: Yes Mode of Locomotion: Walk Anticipated Mode of Locomotion: Walk Distance (FIM): 3=150 ft Walk 10 feet (QC): 6 Walk 50 ft with 2 Turns(QC): 6 Walk 150 ft (QC): 6 Distance: 350' Gait Assistive Device: FWW Comments/Gait Description safe and functional with no deviation Balance Sitting Static: Normal Sitting Dynamic: Normal Standing Static: Normal Standing Dynamic: Normal Assessment/Needs 28 y.o. female, will be seen short term by skilled PT to ensure safe return to home at maximum LOF. Patient has been instructed to ambulate PRN in hallway with FWW use. RN notified. Rehab Potential: Fair Post Rehab Potential-Barriers: multiple back surgeries PT Fpc Goals Fpc Goals PT Bit Setter Goals Time Frame: Feb 23, 2019 Sit to Lying (QC): 6 Lying-Sitting on Side/Bed(QC): 6 Sit to Stand (QC): 6 Roll Left to Right (QC): 6 Chair/Jil-dr-Vamqy Xfer(QC): 6 Does the Patient Walk: Yes Distance: 400' Walk 10 feet (QC): 6 Walk 10ft-Uneven Surface(QC): 6 Walk 50ft with 2 Turns (QC): 6 Walk 150 ft (QC): 6 Gait Assistive Device: FWW PT Plan Treatment/Plan Treatment Plan: Continue Plan of Care Treatment Plan: Bed Mobility, Education, Functional Activity Lizzie, Functional Strength, Gait, Safety, Therapeutic Exercise, Transfers Treatment Duration: Feb 23, 2019 Frequency: 5 times per week Estimated Hrs Per Day: .25 hour per day Patient and/or Family Agrees t: Yes Time/GCodes Time In: 835 Time Out: 848 Total Billed Treatment Time: 13 Total Billed Treatment 1 visit EVLowC 13 min YAKELIN ROSSI PT Feb 19, 2019 10:33
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
[2019-02-19 12:00] VITALS: BP 120/76
--- NOTE | 2019-02-19 12:37 | NUR ---
patient requesting oxycodone instead of lortab, states she takes oxycodone at home, Nolvia ISABEL notified and orders given to DC lortab and order oxycodone as she takes at home.
[2019-02-19] MEDS: oxyCODONE/APAP 10/325MG (PERCOCET 10) TABLET PO PRN ×2 (13:21→19:32)
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
[2019-02-19 16:00] VITALS: BP 103/69
--- NOTE | 2019-02-19 16:13 | Progress Note ---
Subjective Date Seen by a Provider: Feb 19, 2019 Time Seen by a Provider: 16:10 Subjective/Events-last exam Gisell is POD #1 s/p Left L5-S1 facetectomy and removal of previously placed lumbar hardware. She is currently resting and no disturbed. I spoke with her nurse this morning who stated she required frequent pain medications throughout the night up until 0300. Her oral pain medications have been reviwed as well as her vital signs and labs and drain output. Objective Exam Vital Signs Date Time Temp Pulse Resp B/P (MAP) Pulse Ox O2 Delivery O2 Flow Rate FiO2 02/19/19 12:00 35.8 73 18 120/76 (91) 100 Room Air 02/19/19 08:00 36.6 76 16 128/58 (81) 96 Room Air 02/19/19 04:31 36.9 80 16 120/56 (77) 94 Room Air 02/19/19 00:35 36.9 84 18 115/52 (73) 94 Room Air 02/18/19 19:50 37.0 96 16 102/49 (66) 96 Room Air 02/18/19 16:59 Room Air I & O 02/19/19 07:00 Intake Total 4330 ml Output Total 1635 ml Balance 2695 ml Capillary Refill : Less Than 3 Seconds General Appearance: No Apparent Distress Respiratory: No Accessory Muscle Use, No Respiratory Distress Neurologic/Psychiatric: Alert, Oriented x3 Results Lab Laboratory Tests 02/19/19 06:17: White Blood Count 9.3, Red Blood Count 4.25L, Hemoglobin 11.8, Hematocrit 36, Mean Corpuscular Volume 84, Mean Corpuscular Hemoglobin 28, Mean Corpuscular Hemoglobin Concent 33, Red Cell Distribution Width 13.9, Platelet Count 158, Mean Platelet Volume 11.8H, Sodium Level 137, Potassium Level 3.9, Chloride Level 104, Carbon Dioxide Level 22, Anion Gap 11, Blood Urea Nitrogen 7, Creatinine 0.67, Estimat Glomerular Filtration Rate > 60, BUN/Creatinine Ratio 10, Glucose Level 142H, Calcium Level 8.8, Corrected Calcium 9.4, Total Bilirubin 0.5, Aspartate Amino Transf (AST/SGOT) 15, Alanine Aminotransferase (ALT/SGPT) 21, Alkaline Phosphatase 58, Total Protein 5.9L, Albumin 3.3 Assessment/Plan Assessment/Plan Assess & Plan/Chief Complaint assessment: pod #1 s/p left l5-s1 laminectomy with LEXUS plan pain control oob with pt brace when oob IS at bedside and encouraged anticipate dismissal tomorrow Clinical Quality Measures DVT/VTE Risk/Contraindication: Risk Factor Score Per Nursin RFS Level Per Nursing on Admit: 4+=Very High PAO BRANCH Feb 19, 2019 16:13
[2019-02-19 20:00] VITALS: BP 122/76
[2019-02-20] VITALS: BP 104/64
[2019-02-20 04:29] VITALS: BP 116/66
[2019-02-20] MEDS: MULTIVIT W/MINERALS TAB (THERAGRAN M) PO SCH (05:02)
[2019-02-20] MEDS: oxyCODONE/APAP 10/325MG (PERCOCET 10) TABLET PO PRN (05:02)
[2019-02-20] MEDS ORDERED: BACL10TA PO (05:39)
--- NOTE | 2019-02-20 05:42 | Discharge Instructions ---
Discharge Instructions Reconcile Patient Problems Problems Reviewed?: Yes Discharge Medications New, Converted or Re-Newed RX: RX Given to Pt/Family Patient Instructions Goal/Follow Up Appt: follow up in clinic in 2 weeks Patient Instructions: keep incision covered clean and dry sponge bath only back brace when up dont bend lift twist push or pull Return to The Hospital For: new symtpoms such as fever, chest pain, shortness of breath Activity & Diet Discharge Diet: Regular Diet Activity as Tolerated: PAO Galvan Feb 20, 2019 05:42
[2019-02-20] MEDS ORDERED: OXYC-465 PO (05:47)
--- NOTE | 2019-02-20 05:50 | Discharge Summary ---
Diagnosis/Chief Complaint Date of Admission Feb 18, 2019 at 09:05 Date of Discharge 02/19/2019 Admission Diagnosis Admission Diagnosis lumbar stenosis Discharge Diagnosis same Reason Hospital Visit lumbar surgery Discharge Summary Hospital Course Was the Problem List Reviewed?: Yes Hospital Course Gisell is a 28 y/o patient who we have followed and who was previously hospitalized for lumbar radiculopathy. She was admitted for lumbar surgery. She tolerated this well and her post op course was uncomplicated. She progressed with therapy and her pain was controlled. She was dismissed home on POD #2 Labs Laboratory Tests 02/19/19 06:17: Red Blood Count 4.25L, Mean Platelet Volume 11.8H, Glucose Level 142H, Total Protein 5.9L Procedures None. Discharge Physical Examination Allergies: Coded Allergies: tramadol (Unverified Allergy, Severe, 02/14/19) fluticasone propionate (Unverified Adverse Reaction, Intermediate, thrush, 02/14/19) salmeterol xinafoate (Unverified Adverse Reaction, Intermediate, thrush, 02/14/19) topiramate (Unverified Adverse Reaction, Intermediate, numbness, 02/14/19) Vitals & I&Os Vital Signs Date Time Temp Pulse Resp B/P (MAP) Pulse Ox O2 Delivery O2 Flow Rate FiO2 02/20/19 04:29 35.4 83 20 116/66 (83) 97 Room Air 02/18/19 13:50 6 General Appearance: Alert, Oriented X3, No Acute Distress Respiratory: Normal Air Movement Extremities: No Cyanosis, No Edema Skin: No Rashes, No Significant Lesion Neuro: Normal Speech, Strength at 5/5 X4 Ext Discharge Home Medications Reviewed and agree with Discharge Medication list on patient's Discharge Instruction sheet Instructions to Patient/Family Please see electronic discharge instructions given to patient. Clinical Quality Measures DVT/VTE Risk/Contraindication: Risk Factor Score Per Nursin RFS Level Per Nursing on Admit: 4+=Very High Other: DR MELISSA CASEYS SCD'S ONLY PAO BRANCH Feb 20, 2019 05:50
--- NOTE | 2019-02-20 06:40 | NUR ---
YULIANA DRAIN REMOVER PER ORDER. PT TOLERATED WELL. NO S/S OF DISTRESS OR DISCOMFORT NOTED. CLEAN DRESSING APPLIED TO INCISION SITE.
[2019-02-20] MEDS ORDERED: FLU QUADRIvalent (5+ YOA) 2019-2020 (AFLURIA) 0.5 ML IM ONE (08:16)
[2019-02-20 08:35] VITALS: BP 109/56
[2019-02-20] MEDS: morphine ER 15 MG (MS CONTIN) TAB PO SCH (09:14)
[2019-02-20] MEDS: FAMOTIDINE 20 MG (PEPCID) TABLET PO SCH (09:14)
[2019-02-20] MEDS: FLUoxetine HCL 20 MG (PROzac) CAP PO SCH (09:14)
[2019-02-20] MEDS: amLODIPine 5 MG (NORVASC) TAB PO SCH (09:14)
[2019-02-20] MEDS: LITHIUM CARBONATE 300 MG TABLET PO SCH (09:14)
[2019-02-20] MEDS: GABAPENTIN 300 MG (NEURONTIN) CAP PO SCH (09:14)
[2019-02-20 10:00] VITALS: BP 109/56
== END 2019-02-20 09:40 | disposition home or self-care (01) | DRG 517 ==
LOC: 4TH 09:05 → SURG 09:06 → EDSTATUS 10:00 → 4TH 14:20
PROVIDERS: ADMIT Orthopaedic Surgery; ATTEND Orthopaedic Surgery
PROC: 0SP004Z Removal of Internal Fixation Device from Lumbar Vertebral Joint, Open Approach (ICD-10-PCS; 2019-02-18)
PROC: 01NB0ZZ Release Lumbar Nerve, Open Approach (ICD-10-PCS; principal; 2019-02-18 11:43)
DX: M48.061 Spinal stenosis, lumbar region without neurogenic claudication (principal); M54.16 Radiculopathy, lumbar region; I10 Essential (primary) hypertension; E11.9 Type 2 diabetes mellitus without complications; F31.9 Bipolar disorder, unspecified; Z86.718 Personal history of other venous thrombosis and embolism; Z23 Encounter for immunization
CPT/HCPCS: 36415; 80053; 84703; 85027; 94664

== ENCOUNTER 2019-04-16 09:01 | Emergency (ER) | payer MEDICARE, MEDICAID ==
[~2019-04-16] VITALS: Ht 165 cm; Wt 88.6 kg
[~2019-04-16 09:01] MED LIST changes: +BACL10TA PO; +PROP10TA8 PO
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
[2019-04-16] MEDS ORDERED: NS IV 1000 ML 1,000 ML IV SCH (09:30)
[2019-04-16] MEDS ORDERED: LORazepam INJ 2 MG/ML (ATIVAN) VIAL IVP ONE ×2 (09:30→11:30)
[2019-04-16 10:07] LABS: HEMATOCRIT 41 % (35-52); HEMOGLOBIN 14.2 G/DL (11.5-16.0); LYMPHOCYTES % (AUTO) 28 % (12-44); MEAN CORPUSCULAR HEMOGLOBIN 28 PG (25-34); MEAN CORPUSCULAR HGB CONC 35 G/DL (32-36); MEAN CORPUSCULAR VOLUME 80 FL (80-99); MONOCYTES % (AUTO) 9 % (0-12); NEUTROPHILS % (AUTO) 62 % (42-75); PLATELET COUNT 229 10^3/uL (130-400); RED CELL DISTRIBUTION WIDTH 13.3 % (10.0-14.5); WHITE BLOOD COUNT 8.3 10^3/uL (4.3-11.0)
[2019-04-16 10:08] LABS: BASOPHILS % (AUTO) 1 % (0-10); EOSINOPHILS # (AUTO) 0.1 10^3/uL (0.0-0.3); EOSINOPHILS % (AUTO) 1 % (0-10); LYMPHOCYTES # (AUTO) 2.3 X 10^3 (1.0-4.0); MONOCYTES # (AUTO) 0.8 X 10^3 (0.0-1.0); NEUTROPHILS # (AUTO) 5.1 X 10^3 (1.8-7.8)
[2019-04-16 10:25] LABS: BILIRUBIN,URINE 1+ (NEGATIVE); CLARITY,URINE CLEAR; COLOR,URINE YELLOW; GLUCOSE, URINE (UA) NEGATIVE (NEGATIVE); KETONES,URINE 1+ (NEGATIVE); LEUKOCYTE ESTERASE ,URINE NEGATIVE (NEGATIVE); NITRITE,URINE NEGATIVE (NEGATIVE); PH,URINE 6.5 (5-9); PROTEIN,URINE TRACE (NEGATIVE); RBC,URINE 25-50 /HPF
[2019-04-16 10:31] LABS: AMPHETAMINE SCREEN, URINE POSITIVE (NEGATIVE); BARBITURATE SCREEN URINE NEGATIVE (NEGATIVE); BENZODIAZEPINES SCREEN URINE POSITIVE (NEGATIVE); CANNABINOID SCREEN, URINE POSITIVE (NEGATIVE); COCAINE SCREEN URINE NEGATIVE (NEGATIVE); HCG,QUALITATIVE URINE NEGATIVE (NEGATIVE); METHADONE STAT NEGATIVE (NEGATIVE); METHAMPHETAMINE SCREEN URINE S NEGATIVE (NEGATIVE); OPIATE SCREEN URINE NEGATIVE (NEGATIVE); OXYCODONE STAT NEGATIVE (NEGATIVE); PROPOXYPHENE STAT NEGATIVE (NEGATIVE); TRICYCLIC ANTIDEPRESSANTS SCRE NEGATIVE (NEGATIVE)
[2019-04-16 10:32] LABS: CHLORIDE 106 MMOL/L (98-107); POTASSIUM 3.4 MMOL/L (3.6-5.0); SODIUM 141 MMOL/L (135-145)
[2019-04-16 10:33] LABS: ALANINE AMINOTRANSFERASE 15 U/L (0-55); ALBUMIN 4.6 GM/DL (3.2-4.5); ALKALINE PHOSPHATASE 84 U/L (40-136); BILIRUBIN,TOTAL 0.7 MG/DL (0.1-1.0); BUN/CREATININE RATIO 15; CALCIUM 10.5 MG/DL (8.5-10.1); CARBON DIOXIDE 16 MMOL/L (21-32); CREATININE SERUM 0.99 MG/DL (0.60-1.30); GFR ESTIMATED > 60; GLUCOSE 191 MG/DL (70-105)
[2019-04-16 11:36] VITALS: BP 137/105
== END 2019-04-16 11:36 | disposition home or self-care (01) ==
LOC: EDUNIT# 09:01 → ER FS 09:05
DX: Z04.71 Encounter for examination and observation following alleged adult physical abuse (principal); F12.90 Cannabis use, unspecified, uncomplicated; F11.90 Opioid use, unspecified, uncomplicated; F13.90 Sedative, hypnotic, or anxiolytic use, unspecified, uncomplicated; I10 Essential (primary) hypertension; G43.909 Migraine, unspecified, not intractable, without status migrainosus; K58.9 Irritable bowel syndrome, unspecified; M79.7 Fibromyalgia; E11.9 Type 2 diabetes mellitus without complications; F41.9 Anxiety disorder, unspecified; F31.9 Bipolar disorder, unspecified; Z87.440 Personal history of urinary (tract) infections; Z87.442 Personal history of urinary calculi; Z88.8 Allergy status to other drugs, medicaments and biological substances; Z88.5 Allergy status to narcotic agent; Z87.891 Personal history of nicotine dependence; Z90.49 Acquired absence of other specified parts of digestive tract; Z98.51 Tubal ligation status; Z86.711 Personal history of pulmonary embolism; Z82.49 Family history of ischemic heart disease and other diseases of the circulatory system; Z80.8 Family history of malignant neoplasm of other organs or systems
CPT/HCPCS: 36415; 51701; 80053; 80306; 80320; 81000; 84703; 85025; 93005

== ENCOUNTER → 2019-10-09 | Outpatient (CLI) | payer MEDICARE, MEDICAID ==
[~2019-10-09] MED LIST changes: -CLON0.5T13 PO; +CLON0.5T4 PO; +ROPI1TAB PO; -ROPI1TAB2 PO; -TIZA2TAB4 PO; +TIZA2TAB7 PO
== END ==
LOC: LAB 14:54
PROVIDERS: ATTEND Pediatrics
DX: E11.9 Type 2 diabetes mellitus without complications (principal); I10 Essential (primary) hypertension
CPT/HCPCS: 36415; 83036

== ENCOUNTER → 2019-10-28 | Outpatient (CLI) | payer MEDICARE, MEDICAID | LOC: LABNPT 06:44 | PROVIDERS: ATTEND Pediatrics | DX: Z53.9 Procedure and treatment not carried out, unspecified reason (principal) ==

== ENCOUNTER 2019-11-19 17:05 | Emergency (ER) | payer MEDICARE, OTHER ==
[~2019-11-19] VITALS: Ht 165.1 cm; Wt 90.7 kg
[2019-11-19] MEDS ORDERED: NS IV 500 ML 500 ML IV ONE (17:43)
[2019-11-19 17:44] LABS: BILIRUBIN,URINE NEGATIVE (NEGATIVE); CLARITY,URINE CLEAR; COLOR,URINE YELLOW; GLUCOSE, URINE (UA) NEGATIVE (NEGATIVE); KETONES,URINE NEGATIVE (NEGATIVE); LEUKOCYTE ESTERASE ,URINE TRACE (NEGATIVE); NITRITE,URINE NEGATIVE (NEGATIVE); PH,URINE 5.5 (5-9); PROTEIN,URINE NEGATIVE (NEGATIVE)
[2019-11-19] MEDS ORDERED: HYDROcodone/APAP 5 MG/325 MG (LORTAB) TAB PO ONE (17:45)
[2019-11-19 17:59] LABS: BASOPHILS % (AUTO) 0 % (0-10); EOSINOPHILS # (AUTO) 0.2 10^3/uL (0.0-0.3); EOSINOPHILS % (AUTO) 2 % (0-10); HEMATOCRIT 40 % (35-52); HEMOGLOBIN 13.6 G/DL (11.5-16.0); LYMPHOCYTES # (AUTO) 2.6 X 10^3 (1.0-4.0); LYMPHOCYTES % (AUTO) 26 % (12-44); MEAN CORPUSCULAR HEMOGLOBIN 30 PG (25-34); MEAN CORPUSCULAR HGB CONC 34 G/DL (32-36); MEAN CORPUSCULAR VOLUME 87 FL (80-99); MONOCYTES # (AUTO) 0.8 X 10^3 (0.0-1.0); MONOCYTES % (AUTO) 8 % (0-12); NEUTROPHILS # (AUTO) 6.3 X 10^3 (1.8-7.8); NEUTROPHILS % (AUTO) 64 % (42-75); PLATELET COUNT 216 10^3/uL (130-400); RED CELL DISTRIBUTION WIDTH 12.9 % (10.0-14.5); WHITE BLOOD COUNT 9.8 10^3/uL (4.3-11.0)
[2019-11-19 18:05] LABS: BACTERIA,URINE FEW /HPF
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
[2019-11-19 18:09] LABS: ALBUMIN 4.2 GM/DL (3.2-4.5); CHLORIDE 109 MMOL/L (98-107); POTASSIUM 3.7 MMOL/L (3.6-5.0); SODIUM 141 MMOL/L (135-145)
[2019-11-19 18:10] LABS: CALCIUM 9.4 MG/DL (8.5-10.1)
[2019-11-19 18:11] LABS: GLUCOSE 134 MG/DL (70-105)
[2019-11-19 18:12] LABS: TOTAL PROTEIN 7.3 GM/DL (6.4-8.2)
[2019-11-19 18:13] LABS: BILIRUBIN,TOTAL 0.3 MG/DL (0.1-1.0); CARBON DIOXIDE 22 MMOL/L (21-32)
[2019-11-19 18:15] LABS: ALKALINE PHOSPHATASE 68 U/L (40-136); CREATININE SERUM 0.78 MG/DL (0.60-1.30); GFR ESTIMATED > 60
[2019-11-19 18:16] LABS: BUN/CREATININE RATIO 18
[2019-11-19 18:18] LABS: ALANINE AMINOTRANSFERASE 13 U/L (0-55)
[2019-11-19 18:24] LABS: AMPHETAMINE SCREEN, URINE NEGATIVE (NEGATIVE); BARBITURATE SCREEN URINE NEGATIVE (NEGATIVE); BENZODIAZEPINES SCREEN URINE NEGATIVE (NEGATIVE); CANNABINOID SCREEN, URINE NEGATIVE (NEGATIVE); COCAINE SCREEN URINE NEGATIVE (NEGATIVE); METHADONE STAT NEGATIVE (NEGATIVE); METHAMPHETAMINE SCREEN URINE S NEGATIVE (NEGATIVE); OPIATE SCREEN URINE NEGATIVE (NEGATIVE); OXYCODONE STAT NEGATIVE (NEGATIVE); PROPOXYPHENE STAT NEGATIVE (NEGATIVE); TRICYCLIC ANTIDEPRESSANTS SCRE NEGATIVE (NEGATIVE)
--- NOTE | 2019-11-19 18:40 | Diagnostic Imaging Report ---
PROCEDURE: CT urinary tract, rule out kidney stone. TECHNIQUE: Multiple contiguous axial images were obtained through the abdomen and pelvis without the use of intravenous contrast. Auto Exposure Controls were utilized during the CT exam to meet ALARA standards for radiation dose reduction. INDICATION: Bilateral flank pain The previous CT abdomen/pelvis exam of 12/11/2018 noted a small nonobstructive calculi within the right kidney but failed to show any sign of obstruction of the right collecting system. Those calculi were again evident on the subsequent CT lumbar spine exam of 01/19/2019. On this exam there are several calculi within the right kidney. The largest of these is in the inferior pole of the right kidney and measures 6.9 mm. There is no evidence for urolithiasis on the right and the right kidney does not appear to be obstructed. There is no evidence for nephrolithiasis of the left kidney. There is a tiny 1 to 2 mm calculus adjacent to the distal left ureter (image 115 of 124). However, I am not convinced that this is in fact within the ureter. The left ureter itself does not appear to be abnormally dilated and there is no sign of obstruction of the left collecting system. The hepatosplenomegaly seen on the previous study is again evident and no different. Also, as noted on the prior exam, the gallbladder is surgically absent. The stomach is filled with radiopaque material. This may be related to ingested medication. The pancreas, the adrenals, the aorta and the inferior vena cava show no sign of an acute abnormality. The uterus is prominent but within normal limits. The urinary bladder is only partially filled and consequently difficult to evaluate. There is no obvious bladder abnormality evident. There may be a few diverticula in the sigmoid colon but there is no sign of acute diverticulitis. There are surgical clips near the tip of the cecum and most likely the appendix is surgically absent. The bone windows again show postsurgical and degenerative changes at L4-L5 and L5-S1. In the interval since the prior study, however, the pedicle screws on the right at L4 and L5 have been removed. Mild scar formation is again seen in the left lung base. Lungs are otherwise clear. IMPRESSION: 1. There are nonobstructing calculi within the right kidney including a 6.9 mm calculus in the inferior pole. There is no evidence for obstruction of the right collecting system, however. 2. There is a minute calcific density adjacent to the distal left ureter. This seems to be outside of the ureter. There is no evidence for obstruction of the left collecting system. 3. There is no acute abnormality of the abdomen or pelvis noted otherwise. 4. The hepatosplenomegaly seen previously is again evident and unchanged. 5. The gallbladder and most likely the appendix are surgically absent. 6. The pedicle screws on the right at L4 and L5 seen previously have been removed. Dictated by: Dictated on workstation # [id number]
[2019-11-19] MEDS ORDERED: NITR-65 PO (19:10)
[2019-11-19] MEDS ORDERED: NITROFURANTOIN 100 MG (MACROBID) CAPSULE PO ONE (19:15)
[2019-11-19 19:19] VITALS: BP 128/74
== END 2019-11-19 19:18 | disposition home or self-care (01) ==
LOC: EDUNIT# 17:05 → ER 17:07
DX: M54.5 Low back pain (principal); N20.0 Calculus of kidney; J45.909 Unspecified asthma, uncomplicated; I10 Essential (primary) hypertension; G43.909 Migraine, unspecified, not intractable, without status migrainosus; K58.2 Mixed irritable bowel syndrome; M19.90 Unspecified osteoarthritis, unspecified site; M79.7 Fibromyalgia; M41.9 Scoliosis, unspecified; M54.9 Dorsalgia, unspecified; E11.9 Type 2 diabetes mellitus without complications; E66.01 Morbid (severe) obesity due to excess calories; F41.9 Anxiety disorder, unspecified; F31.9 Bipolar disorder, unspecified; L40.9 Psoriasis, unspecified; Z87.891 Personal history of nicotine dependence; Z88.8 Allergy status to other drugs, medicaments and biological substances; Z88.6 Allergy status to analgesic agent; Z79.899 Other long term (current) drug therapy; Z68.33 Body mass index [BMI] 33.0-33.9, adult
CPT/HCPCS: 36415; 74176; 80053; 80306; 81000; 84703; 85025; 87088

== ENCOUNTER → 2021-02-15 | Outpatient (CLI) | payer MEDICARE, MEDICAID ==
[~2021-02-15] MED LIST changes: +AMLO-250 PO; -AMLO5TAB9 PO; +CLN.1T PO; -CLON0.1T PO; +OXYC-556 PO; +TIZA-169 PO; -TIZA2TAB7 PO
== END ==
LOC: LABNPT 06:17
PROVIDERS: ATTEND Orthopaedic Surgery
DX: Z01.812 Encounter for preprocedural laboratory examination (principal)

== ENCOUNTER → 2021-02-26 | Outpatient (CLI) | payer MEDICARE, MEDICAID | LOC: LABNPT 06:29 | PROVIDERS: ATTEND Orthopaedic Surgery | DX: Z01.812 Encounter for preprocedural laboratory examination (principal); Z20.822 Contact with and (suspected) exposure to COVID-19 | CPT/HCPCS: 87635 ==

== ENCOUNTER 2021-05-10 08:03 | Emergency (ER) | payer MEDICARE, MEDICAID ==
[~2021-05-10] VITALS: Ht 165 cm; Wt 100.0 kg
[2021-05-10 08:09] VITALS: BP 137/75
[2021-05-10 08:29] LABS: BILIRUBIN,URINE NEGATIVE (NEGATIVE); CLARITY,URINE CLEAR; COLOR,URINE YELLOW; GLUCOSE, URINE (UA) NEGATIVE (NEGATIVE); KETONES,URINE NEGATIVE (NEGATIVE); LEUKOCYTE ESTERASE ,URINE NEGATIVE (NEGATIVE); NITRITE,URINE NEGATIVE (NEGATIVE); PROTEIN,URINE NEGATIVE (NEGATIVE)
[2021-05-10 08:55] LABS: BACTERIA,URINE FEW /HPF; HYALINE CASTS, URINE 0-2 /LPF; RBC,URINE 0-2 /HPF; WBC,URINE 0-2 /HPF
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
--- NOTE | 2021-05-10 10:10 | Diagnostic Imaging Report ---
EXAMINATION: CT abdomen and pelvis without contrast. TECHNIQUE: Multiple contiguous axial images were obtained through the abdomen and pelvis without the use of intravenous contrast. All CT scans use one or more of the following dose optimizing techniques: automated exposure control, MA and/or KvP adjustment based on patient size and exam type or iterative reconstruction. HISTORY: Flank pain COMPARISON: 11/19/2019 FINDINGS: Limited views of the lower thorax are unremarkable. The liver is normal without focal lesion. There is no biliary ductal dilation. Gallbladder is surgically absent. Pancreas is normal. Spleen is normal. Adrenal glands are normal. The kidneys are normal. There is no hydronephrosis. Urinary bladder is normal. There are no renal or ureteral stones. Bowel is normal in caliber without obstruction or inflammation. No free fluid or air. No abdominal or pelvic lymphadenopathy. Aorta is normal in caliber without aneurysm. There are no suspicious osseus lesions. IMPRESSION: 1. No renal or ureteral stones. Dictated by: Dictated on workstation # [id number]
--- NOTE | 2021-05-10 10:20 | Diagnostic Imaging Report ---
INDICATION: Right-sided flank pain. Patient has history of kidney stones. TIME OF EXAM: 10:07 AM Bowel gas pattern is nonobstructed. There are surgical clips in the right upper quadrant and the right lower abdomen. No definite radiopaque urinary tract calculi are seen. Postoperative changes of laminectomy in the lower lumbar spine are noted. IMPRESSION: No acute feature is detected. Dictated by: Dictated on workstation # [id number]
[2021-05-10] MEDS ORDERED: NS IV 1000 ML 1,000 ML IV SCH (11:15)
[2021-05-10 11:41] LABS: BASOPHILS # (AUTO) 0.1 10^3/uL (0.0-0.1); BASOPHILS % (AUTO) 1 % (0-10); EOSINOPHILS # (AUTO) 0.4 10^3/uL (0.0-0.3); EOSINOPHILS % (AUTO) 6 % (0-10); HEMATOCRIT 42 % (35-52); HEMOGLOBIN 14.2 g/dL (11.5-16.0); LYMPHOCYTES # (AUTO) 2.1 10^3/uL (1.0-4.0); LYMPHOCYTES % (AUTO) 28 % (12-44); MEAN CORPUSCULAR HEMOGLOBIN 30 pg (25-34); MEAN CORPUSCULAR HGB CONC 34 g/dL (32-36); MEAN CORPUSCULAR VOLUME 88 fL (80-99); MEAN PLATELET VOLUME 11.1 fL (9.0-12.2); MONOCYTES # (AUTO) 0.6 10^3/uL (0.0-1.0); MONOCYTES % (AUTO) 8 % (0-12); NEUTROPHILS # (AUTO) 4.4 10^3/uL (1.8-7.8); NEUTROPHILS % (AUTO) 58 % (42-75); PLATELET COUNT 209 10^3/uL (130-400); WHITE BLOOD COUNT 7.5 10^3/uL (4.3-11.0)
[2021-05-10] MEDS ORDERED: ACETAMINOPHEN 500 MG TAB (TYLENOL) PO ONE (11:45)
[2021-05-10 11:54] LABS: ALBUMIN 4.2 GM/DL (3.2-4.5)
[2021-05-10 11:55] LABS: POTASSIUM 4.6 MMOL/L (3.6-5.0)
[2021-05-10 11:56] LABS: CALCIUM 9.4 MG/DL (8.5-10.1)
[2021-05-10 11:57] LABS: TOTAL PROTEIN 7.8 GM/DL (6.4-8.2)
[2021-05-10 11:59] LABS: BILIRUBIN,TOTAL 0.3 MG/DL (0.1-1.0)
[2021-05-10 12:01] LABS: CREATININE SERUM 0.7 MG/DL (0.60-1.30)
== END 2021-05-10 13:10 | disposition home or self-care (01) ==
LOC: EDUNIT# 08:03 → ER 08:05
DX: N10 Acute pyelonephritis (principal); I10 Essential (primary) hypertension; J45.909 Unspecified asthma, uncomplicated; E11.9 Type 2 diabetes mellitus without complications; F41.9 Anxiety disorder, unspecified; F32.9 Major depressive disorder, single episode, unspecified; G89.29 Other chronic pain; M54.9 Dorsalgia, unspecified; E66.01 Morbid (severe) obesity due to excess calories; Z68.36 Body mass index [BMI] 36.0-36.9, adult; Z79.899 Other long term (current) drug therapy; Z79.891 Long term (current) use of opiate analgesic
CPT/HCPCS: 36415; 74018; 74176; 80053; 81000; 84703; 85025; 86141

== ENCOUNTER → 2021-05-14 | Outpatient (CLI) | payer MEDICARE, MEDICAID ==
[2021-05-14 11:16] LABS: HEMATOCRIT 39 % (35-52); HEMOGLOBIN 13.2 g/dL (11.5-16.0); MEAN CORPUSCULAR HEMOGLOBIN 30 pg (25-34); MEAN CORPUSCULAR HGB CONC 34 g/dL (32-36); MEAN CORPUSCULAR VOLUME 86 fL (80-99); MEAN PLATELET VOLUME 10.9 fL (9.0-12.2); PLATELET COUNT 216 10^3/uL (130-400); WHITE BLOOD COUNT 7.7 10^3/uL (4.3-11.0)
[2021-05-14 11:18] LABS: BILIRUBIN,URINE NEGATIVE (NEGATIVE); CLARITY,URINE CLEAR; COLOR,URINE YELLOW; GLUCOSE, URINE (UA) NEGATIVE (NEGATIVE); KETONES,URINE NEGATIVE (NEGATIVE); LEUKOCYTE ESTERASE ,URINE NEGATIVE (NEGATIVE); NITRITE,URINE NEGATIVE (NEGATIVE); PH,URINE 6.5 (5-9); PROTEIN,URINE TRACE (NEGATIVE)
[2021-05-14 11:31] LABS: BACTERIA,URINE NEGATIVE /HPF
[2021-05-14 11:33] LABS: ALBUMIN 4.1 GM/DL (3.2-4.5); BILIRUBIN,TOTAL 0.4 MG/DL (0.1-1.0); CALCIUM 9.6 MG/DL (8.5-10.1); CREATININE SERUM 0.72 MG/DL (0.60-1.30)
== END ==
LOC: LAB 10:56
PROVIDERS: ATTEND Family Medicine
DX: N12 Tubulo-interstitial nephritis, not specified as acute or chronic (principal); E11.9 Type 2 diabetes mellitus without complications
CPT/HCPCS: 36415; 80053; 81000; 85027; 86141

== ENCOUNTER → 2021-06-25 | Outpatient (CLI) | payer MEDICARE, MEDICAID ==
--- NOTE | 2021-06-25 15:18 | Diagnostic Imaging Report ---
INDICATION: Right upper quadrant pain. Diabetic. COMPARISON: 05/10/2021 KUB. There are surgical clips in the biliary fossa again noted. There is no organomegaly. No calcifications are seen overlying the kidneys, ureter and bladder. There is normal stool and gas pattern throughout the colon. Stomach and small bowel are not distended. Mild scoliosis with degenerative disc disease. IMPRESSION: 1. No acute changes since previous exam. 2. No evidence of constipation or bowel obstruction. Dictated by: Dictated on workstation # [id number]
[2021-06-25 15:47] LABS: HEMATOCRIT 39 % (35-52); HEMOGLOBIN 13.3 g/dL (11.5-16.0); MEAN CORPUSCULAR HEMOGLOBIN 30 pg (25-34); MEAN CORPUSCULAR HGB CONC 34 g/dL (32-36); MEAN CORPUSCULAR VOLUME 88 fL (80-99); WHITE BLOOD COUNT 6.1 10^3/uL (4.3-11.0)
[2021-06-25 15:48] LABS: BASOPHILS % (AUTO) 1 % (0-10); EOSINOPHILS % (AUTO) 5 % (0-10); LYMPHOCYTES % (AUTO) 30 % (12-44); MEAN PLATELET VOLUME 10.9 fL (9.0-12.2); MONOCYTES % (AUTO) 11 % (0-12); NEUTROPHILS % (AUTO) 53 % (42-75); PLATELET COUNT 202 10^3/uL (130-400)
[2021-06-25 15:50] LABS: LYMPHOCYTES # (AUTO) 1.8 X 10^3 (1.0-4.0); MONOCYTES # (AUTO) 0.7 X 10^3 (0.0-1.0); NEUTROPHILS # (AUTO) 3.2 X 10^3 (1.8-7.8)
[2021-06-25 15:51] LABS: EOSINOPHILS # (AUTO) 0.3 10^3/uL (0.0-0.3)
[2021-06-25 16:04] LABS: BILIRUBIN,TOTAL 0.3 MG/DL (0.1-1.0); CALCIUM 9.6 MG/DL (8.5-10.1); CREATININE SERUM 0.77 MG/DL (0.60-1.30); POTASSIUM 3.9 MMOL/L (3.6-5.0)
[2021-06-25 16:05] LABS: ALBUMIN 4.4 GM/DL (3.2-4.5); TOTAL PROTEIN 7.4 GM/DL (6.4-8.2)
[2021-06-25 22:17] LABS: FREE T4 (FREE THYROXINE) 1.01 NG/DL (0.70-1.48)
== END ==
LOC: RAD FS 14:47
PROVIDERS: ATTEND Nurse Practitioner Family
DX: E11.9 Type 2 diabetes mellitus without complications (principal); R10.11 Right upper quadrant pain; E04.1 Nontoxic single thyroid nodule; N92.6 Irregular menstruation, unspecified; Z78.9 Other specified health status
CPT/HCPCS: 36415; 74018; 80053; 82728; 83540; 83550; 84439; 84443; 85025

== ENCOUNTER → 2021-08-30 | Outpatient (CLI) | payer MEDICARE, MEDICAID ==
--- NOTE | 2021-08-30 12:36 | Diagnostic Imaging Report ---
INDICATION: Foot swelling, pain EXAMINATION: Left foot 08/30/2021 FINDINGS: 3 views of the foot. Postoperative changes noted in the visualized distal tibia. Within the foot there is minimal narrowing and spurring at the 1st metatarsophalangeal joint. There are no fractures or dislocations. IMPRESSION: 1. No acute process with mild degenerative findings noted. Dictated by: Dictated on workstation # [id number]
== END ==
LOC: LAB FS 10:10
PROVIDERS: ATTEND Nurse Practitioner Family
DX: M79.672 Pain in left foot (principal); M79.89 Other specified soft tissue disorders
CPT/HCPCS: 36415; 73630; 84550